=== PATIENT | female | born 1950 | race Caucasian/White ===

== ENCOUNTER → 2016-07-17 | Outpatient (REF) | payer OTHER ==
[2016-07-18 13:48] LABS: ALBUMIN 3.8 GM/DL (3.2-5.2); ALBUMIN/GLOBULIN RATIO 1.23 (1.00-1.93); BASO % 0.1 % (0.0-1.0); BILIRUBIN,TOTAL 0.3 MG/DL (0.2-1.0); CALCIUM LEVEL 9.5 MG/DL (8.8-10.2); CREATININE FOR GFR 1.13 MG/DL (0.55-1.02); EOS # 0.1 K/mm3 (0.0-0.50); EOS % 3.3 % (0.0-3.0); GLOMERULAR FILTRATION RATE 51.1 (>45); LARGE UNSTAINED CELL # 0.1 K/mm3 (0.0-0.4); LARGE UNSTAINED CELL % 2.5 % (0.0-4.0); LYMPH # 0.7 K/mm3 (1.5-4.5); MEAN CORPUSCULAR HEMOGLOBIN 24.5 pg (27.0-33.0); MEAN CORPUSCULAR HGB CONC 31.3 g/dl (32.0-36.5); MEAN CORPUSCULAR VOLUME 78.5 fl (80.0-96.0); MONO # 0.2 K/mm3 (0.0-0.8); MONO % 6.5 % (0.0-5.0); NEUTROPHILS # 1.5 K/mm3 (1.8-7.7); NEUTROPHILS % 61.6 % (36.0-66.0); PLATELET COUNT, AUTOMATED 112 k/mm3 (150-450); POTASSIUM SERUM 4.4 MEQ/L (3.5-5.1); RED CELL DISTRIBUTION WIDTH 17.4 % (11.5-14.5); TOTAL PROTEIN 6.9 GM/DL (6.4-8.2); WHITE BLOOD COUNT 2.5 K/mm3 (4.0-10.0)
== END ==
LOC: M SFHCADAM 11:57
PROVIDERS: ATTEND Family Medicine
DX: T14.8 Other injury of unspecified body region (principal); E11.9 Type 2 diabetes mellitus without complications; Y92.89 Other specified places as the place of occurrence of the external cause; Y93.89 Activity, other specified; Y99.8 Other external cause status; X58.XXXA Exposure to other specified factors, initial encounter
CPT/HCPCS: 80053; 85025; G0463

== ENCOUNTER 2016-09-20 12:37 | Emergency (ER) | payer OTHER ==
[~2016-09-20] VITALS: Ht 152.4 cm; Wt 86.2 kg
[2016-09-20] MEDS ORDERED: LISI10TA4 (13:22)
[2016-09-20] MEDS ORDERED: LASI20TA PO (13:22)
[2016-09-20] MEDS ORDERED: SM M250T (13:22)
[2016-09-20] MEDS ORDERED: ATOR1TAB18 (13:22)
[2016-09-20] MEDS ORDERED: ESOM1CAP5 (13:22)
[2016-09-20] MEDS ORDERED: XIFA550T (13:22)
[2016-09-20] MEDS ORDERED: NITR0.4D TD (13:22)
[2016-09-20] MEDS ORDERED: OXYGEN (13:22)
[2016-09-20] MEDS ORDERED: FEBU40TA (13:22)
[2016-09-20] MEDS: ASPIRIN 81 MG CHEW TABLET PO ONE (13:40)
[2016-09-20 13:48] LABS: BASO % 0.4 % (0.0-1.0); EOS # 0.1 K/mm3 (0.0-0.50); EOS % 1.8 % (0.0-3.0); LARGE UNSTAINED CELL # 0.1 K/mm3 (0.0-0.4); LARGE UNSTAINED CELL % 2.8 % (0.0-4.0); MEAN CORPUSCULAR HGB CONC 31.7 g/dl (32.0-36.5); MEAN CORPUSCULAR VOLUME 81.9 fl (80.0-96.0); MONO # 0.2 K/mm3 (0.0-0.8); MONO % 5.4 % (0.0-5.0); NEUTROPHILS # 2.7 K/mm3 (1.8-7.7); NEUTROPHILS % 65.5 % (36.0-66.0); PLATELET COUNT, AUTOMATED 124 k/mm3 (150-450); WHITE BLOOD COUNT 4.2 K/mm3 (4.0-10.0)
--- NOTE | 2016-09-20 14:08 | REP ---
PORTABLE CHEST X-RAY: Single view. HISTORY: Chest pain. Comparison chest x-rays from February 20, 2015. FINDINGS: EKG monitoring electrodes overlie the chest. The lungs are well inflated and clear. Heart size is normal. Pulmonary vasculature is not increased. No significant bony abnormality is seen. IMPRESSION: No active disease. Signed by Kendell Lou MD 09/20/2016 05:00 P
[2016-09-20 14:11] LABS: ALBUMIN 4.3 GM/DL (3.2-5.2); ALBUMIN/GLOBULIN RATIO 1.26 (1.00-1.93); ALKALINE PHOSPHATASE 67 U/L (45-117); ALT/SGPT 66 U/L (12-78); ANION GAP 13 MEQ/L (8-16); AST/SGOT 37 U/L (15-37); BILIRUBIN,DIRECT 0.1 MG/DL (0.0-0.2); BILIRUBIN,TOTAL 0.4 MG/DL (0.2-1.0); BLOOD UREA NITROGEN 64 MG/DL (7-18); CALCIUM LEVEL 9.6 MG/DL (8.8-10.2); CARBON DIOXIDE LEVEL 21 MEQ/L (21-32); CHLORIDE LEVEL 105 MEQ/L (98-107); CREATININE FOR GFR 1.34 MG/DL (0.55-1.02); GLUCOSE, FASTING 138 MG/DL (80-110); POTASSIUM SERUM 4.8 MEQ/L (3.5-5.1); SODIUM LEVEL 139 MEQ/L (136-145); TOTAL PROTEIN 7.7 GM/DL (6.4-8.2)
[2016-09-20 16:48] VITALS: BP 93/54
[2016-09-20] MEDS: NS 500 ML IV ONE (17:00)
[2016-09-20] MEDS ORDERED: PANT40TA2 PO ×2 (18:25→18:27)
--- NOTE | 2016-09-21 19:44 | ECGEPIP ---
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
--- NOTE | 2016-09-21 19:48 | ECGEPIP ---
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
== END 2016-09-20 18:42 | disposition home or self-care (01) ==
LOC: M ED 14:17
DX: E86.0 Dehydration (principal); N18.3 Chronic kidney disease, stage 3 (moderate); R07.89 Other chest pain

== ENCOUNTER → 2016-09-24 | Outpatient (CLI) | payer OTHER ==
[~2016-09-24] MED LIST: ATOR1TAB18; ESOM1CAP5; FEBU40TA; LASI20TA PO; LISI10TA4; NITR0.4D TD; OXYGEN; PANT40TA2 PO; SM M250T; XIFA550T
--- NOTE | 2016-09-24 09:35 | REP ---
RIGHT UPPER QUADRANT ULTRASOUND: Real-time sonographic evaluation of the right upper quadrant is performed. The gallbladder demonstrates no evidence of intraluminal sludge or calculi, wall thickening or pericholecystic fluid. There is no intrahepatic or extrahepatic biliary dilatation, common bile duct measuring 3 mm in diameter. The liver and pancreas appear grossly unremarkable with no mass. The pancreas is not optimally seen due to overlying bowel gas. The right kidney demonstrates no hydronephrosis or nephrolithiasis with normal size 9.6 cm in length. IMPRESSION: Essentially negative right upper quadrant ultrasound.
== END ==
LOC: M WHC 08:14
PROVIDERS: ATTEND Family Medicine
DX: K74.60 Unspecified cirrhosis of liver (principal)

== ENCOUNTER → 2016-10-09 | Outpatient (REF) | payer OTHER ==
[~2016-10-09] MED LIST changes: +LEVE1INJ5 SC; +MONT10TA2 PO; +NOVOINJ3 SC; +SPIR25TA2 PO
== END ==
LOC: M SFHCADAM 07:55
PROVIDERS: ATTEND Family Medicine
DX: E11.9 Type 2 diabetes mellitus without complications (principal)

== ENCOUNTER → 2016-10-21 | Outpatient (CLI) | payer OTHER ==
[~2016-10-21] VITALS: Ht 152.4 cm; Wt 87.1 kg
[~2016-10-21] MED LIST changes: +LIDOCAINE 2% INJ 100 MG/5 ML SDV (FOR ANES.) As Ordered ONE; +NS 1,000 ML IV SCH; +PROPOFOL 200 MG/20 ML VIAL As Ordered ONE
--- NOTE | 2016-10-21 12:10 | ROOR ---
Patient Name: Bess Rider Procedure Date: 10/21/2016 11:54 AM Date of : 1950 Age: 66 Room: [facility] Gender: Female Note Status: Finalized Procedure: Upper GI endoscopy Indications: Follow-up of portal hypertensive gastropathy Providers: Chito Haskins MD Referring MD: Hillary Toro DO Requesting Provider: Medicines: Monitored Anesthesia Care Complications: No immediate complications. Procedure: Pre-Anesthesia Assessment: - The heart rate, respiratory rate, oxygen saturations, blood pressure, adequacy of pulmonary ventilation, and response to care were monitored throughout the procedure. The Endoscope was introduced through the mouth, and advanced to the second part of duodenum. The upper GI endoscopy was accomplished without difficulty. The patient tolerated the procedure well. Findings: The Z-line was regular and was found 35 cm from the incisors. There is no endoscopic evidence of varices in the entire esophagus. Varices with no bleeding were found in the cardia. They were large in largest diameter. 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 The exam was otherwise without abnormality. Impression: - Z-line regular, 35 cm from the incisors. 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 - Gastric antral vascular ectasia without bleeding. - The examination was otherwise normal. - No specimens collected. - The examination was otherwise normal. Recommendation: - Patient has a contact number available for emergencies. The signs and symptoms of potential delayed complications were discussed with the patient. Return to normal activities tomorrow. Written discharge instructions were provided to the patient. - High fiber diet. - Discharge patient to home. - Continue present medications. - Return to referring physician. - The findings and recommendations were discussed with the patient's family. Chito Haskins MD Chito Haskins MD 10/21/2016 12:09:47 PM This report has been signed electronically. Number of Addenda: 0 Note Initiated On: 10/21/2016 11:54 AM Estimated Blood Loss: Estimated blood loss: none.
[2016-10-21 12:35] VITALS: BP 117/62
== END ==
LOC: M OPP 11:13
PROVIDERS: ATTEND Internal Medicine Gastroenterology
DX: Z09 Encounter for follow-up examination after completed treatment for conditions other than malignant neoplasm (principal); Z87.19 Personal history of other diseases of the digestive system; I86.4 Gastric varices; K31.819 Angiodysplasia of stomach and duodenum without bleeding; I12.9 Hypertensive chronic kidney disease with stage 1 through stage 4 chronic kidney disease, or unspecified chronic kidney disease; E11.9 Type 2 diabetes mellitus without complications; R12 Heartburn; B19.10 Unspecified viral hepatitis B without hepatic coma; G47.30 Sleep apnea, unspecified; N18.3 Chronic kidney disease, stage 3 (moderate); Z87.891 Personal history of nicotine dependence; Z79.899 Other long term (current) drug therapy; Z91.018 Allergy to other foods

== ENCOUNTER → 2017-01-08 | Outpatient (REF) | payer OTHER ==
[~2017-01-08] MED LIST changes: -ATOR1TAB18; +ATOR80TA59; -LIDOCAINE 2% INJ 100 MG/5 ML SDV (FOR ANES.) As Ordered ONE; -NS 1,000 ML IV SCH; -PROPOFOL 200 MG/20 ML VIAL As Ordered ONE
== END ==
LOC: M SFHCPLAZ 08:30
PROVIDERS: ATTEND Family Medicine
DX: E11.9 Type 2 diabetes mellitus without complications (principal)

== ENCOUNTER → 2017-01-14 | Outpatient (REF) | payer OTHER | LOC: M SFHCADAM 12:24 | PROVIDERS: ATTEND Family Medicine | DX: E11.69 Type 2 diabetes mellitus with other specified complication (principal) | CPT/HCPCS: 82043; 82948; G0463 ==

== ENCOUNTER → 2017-03-14 | Outpatient (CLI) | payer OTHER ==
--- NOTE | 2017-03-14 11:13 | REP ---
Right upper quadrant sonography: History: Hepatic cirrhosis. Comparison study September 24, 2016 showed no significant abnormality. Findings: Scanning through the right upper quadrant of the abdomen demonstrates a normal sized thin-walled gallbladder without evidence of stone or polyp. Common bile duct is normal measuring 0.3 cm in greatest diameter. No focal liver lesion is seen. No pancreatic lesion is seen. There is no evidence of ascites or right renal abnormality. The right kidney measures 8.8 x 4.9 x 3.3 cm. Impression: Unremarkable right upper quadrant sonogram.
== END ==
LOC: M WHC 07:59
PROVIDERS: ATTEND Family Medicine
DX: K74.60 Unspecified cirrhosis of liver (principal)

== ENCOUNTER → 2017-03-14 | Outpatient (CLI) | payer OTHER ==
--- NOTE | 2017-03-14 10:18 | REPMRS ---
Patient History The patient states she had a clinical breast exam in 03/2017. Patient is postmenopausal. No known family history of cancer. Digital Woman Screen Mammo: March 14, 2017 - Exam #: [id number] Bilateral CC and MLO view(s) were taken. Technologist: Anita Guido, Technologist Prior study comparison: March 12, 2016, digital woman screen mammo performed at [facility] to [facility]. February 10, 2015, digital woman screen mammo performed at [facility]. February 09, 2014, digital woman screen mammo performed at [facility]. FINDINGS: The breast tissue is almost entirely fat. There has been no change in the appearance of the mammogram from the prior studies. There is no interval development of dominant mass, architectural distortion, or clustered microcalcification typical of malignancy. ASSESSMENT: BI-RADS/ACR category 1 mammogram. Negative. Recommendation Routine screening mammogram of both breasts in 1 year (for women over age 40). This mammogram was interpreted with the aid of an FDA-approved computer-aided dectection system. Electronically Signed By: Jonathan Lou MD 03/14/17 [id number]
--- NOTE | 2017-03-17 09:15 | DEXA ---
AP SPINE L1 - L4 1.001 -1.6 0.1 LT FEMUR TOTAL 0.817 -1.5 -0.2 RT FEMUR TOTAL 0.855 -1.2 0.1 TOTAL BODY TOTAL OTHER DUAL FEMUR FRAX* ASSESSMENT Risk factors: Not performed. 10 year probability of fracture Major osteoporotic fracture % Hip fracture % COMMENTS: There is low bone density of the spine and hips. The density of the spine has increased 12.9% since the initial exam on 11/2003. The spine density has increased 4.3% since the most recent exam on 02/2015. The density of the left hip has decreased 6.2% since the initial exam on 11/2003. The density of the left hip has decreased 0% since the most recent exam on 2014. The density of the right hip has decreased 7.0% since the initial exam on 2003. The density of the right hip has increased 3.4% since the most recent exam on 2014. FOLLOW-UP: Recommendation for the next bone density exam: 2 years. VITALIY
== END ==
LOC: M WHC 08:14
PROVIDERS: ATTEND Nurse Practitioner Family
DX: Z12.31 Encounter for screening mammogram for malignant neoplasm of breast (principal); E65 Localized adiposity; M81.0 Age-related osteoporosis without current pathological fracture; Z78.0 Asymptomatic menopausal state; K74.60 Unspecified cirrhosis of liver; Z12.12 Encounter for screening for malignant neoplasm of rectum; B37.89 Other sites of candidiasis; Z01.419 Encounter for gynecological examination (general) (routine) without abnormal findings
CPT/HCPCS: 76705; 77080; 82270; G0101; G0202

== ENCOUNTER → 2017-04-01 | Outpatient (REF) | payer OTHER ==
[2017-04-01 14:43] LABS: ALBUMIN/GLOBULIN RATIO 1.29 (1.00-1.93); ALKALINE PHOSPHATASE 72 U/L (45-117); ALT/SGPT 51 U/L (12-78); ANION GAP 8 MEQ/L (8-16); AST/SGOT 25 U/L (15-37); BILIRUBIN,DIRECT 0.1 MG/DL (0.0-0.2); BILIRUBIN,TOTAL 0.5 MG/DL (0.2-1.0); BLOOD UREA NITROGEN 41 MG/DL (7-18); CALCIUM LEVEL 9.4 MG/DL (8.8-10.2); CARBON DIOXIDE LEVEL 26 MEQ/L (21-32); CHLORIDE LEVEL 107 MEQ/L (98-107); CHOLESTEROL LEVEL 150 MG/DL (<200); CREATININE FOR GFR 0.94 MG/DL (0.55-1.02); GLOMERULAR FILTRATION RATE > 60.0 (>45); GLUCOSE, FASTING 161 MG/DL (80-110); PHOSPHORUS LEVEL 3.2 MG/DL (2.5-4.9); POTASSIUM SERUM 4.2 MEQ/L (3.5-5.1); SODIUM LEVEL 141 MEQ/L (136-145); TOTAL PROTEIN 7.1 GM/DL (6.4-8.2); TRIGLYCERIDES LEVEL 95 MG/DL (<150)
== END ==
LOC: M LABDRAW1 12:20
PROVIDERS: ATTEND Nurse Practitioner Family
DX: E78.2 Mixed hyperlipidemia (principal); I10 Essential (primary) hypertension

== ENCOUNTER → 2017-04-07 | Outpatient (REF) | payer OTHER ==
[2017-04-07 12:29] LABS: BASO % 0.5 % (0.0-1.0); EOS # 0.1 10^3/uL (0.0-0.50); EOS % 1.4 % (0.0-3.0); IMMATURE GRANULOCYTE % 0.3 % (0-0); LYMPH # 1.2 10^3/uL (1.5-4.5); LYMPH % 31.9 % (24.0-44.0); MEAN CORPUSCULAR HEMOGLOBIN 28.9 pg (27.0-33.0); MEAN CORPUSCULAR HGB CONC 32.6 g/dl (32.0-36.5); MEAN CORPUSCULAR VOLUME 88.7 fl (80.0-96.0); MONO # 0.3 10^3/uL (0.0-0.8); MONO % 8.4 % (0.0-5.0); NEUTROPHILS # 2.1 10^3/uL (1.8-7.7); NEUTROPHILS % 57.5 % (36.0-66.0); PLATELET COUNT, AUTOMATED 111 10^3/uL (150-450); RED CELL DISTRIBUTION WIDTH 14.5 % (11.5-14.5); WHITE BLOOD COUNT 3.7 10^3/uL (4.0-10.0)
== END ==
LOC: M SFHCADAM 08:02
PROVIDERS: ATTEND Family Medicine
DX: E11.69 Type 2 diabetes mellitus with other specified complication (principal); K74.60 Unspecified cirrhosis of liver

== ENCOUNTER → 2017-07-08 | Outpatient (REF) | payer OTHER ==
[2017-07-08 13:14] LABS: ESTIMATED AVERAGE GLUCOSE 120 MG/DL (60-110); HEMOGLOBIN A1c 5.8 %
== END ==
LOC: M SFHCADAM 08:13
DX: E11.9 Type 2 diabetes mellitus without complications (principal)
CPT/HCPCS: 83036

== ENCOUNTER → 2017-10-30 | Outpatient (CLI) | payer OTHER | LOC: M WHC 08:37 | DX: K74.60 Unspecified cirrhosis of liver (principal) | CPT/HCPCS: 76705 ==

== ENCOUNTER → 2017-11-06 | Outpatient (CLI) | payer OTHER | LOC: M RAD 13:16 | DX: N28.89 Other specified disorders of kidney and ureter (principal) | CPT/HCPCS: 76775 ==

== ENCOUNTER → 2017-12-09 | Outpatient (CLI) | payer OTHER | LOC: M RAD 17:43 | DX: M66.362 Spontaneous rupture of flexor tendons, left lower leg (principal); R26.2 Difficulty in walking, not elsewhere classified; M76.822 Posterior tibial tendinitis, left leg; M79.672 Pain in left foot; M65.862 Other synovitis and tenosynovitis, left lower leg | CPT/HCPCS: 73721 ==

== ENCOUNTER → 2018-01-19 | Outpatient (REF) | payer OTHER ==
[2018-01-19 13:47] LABS: ESTIMATED AVERAGE GLUCOSE 146 MG/DL (60-110); HEMOGLOBIN A1c 6.7 %
== END ==
LOC: M SFHCADAM 12:12
DX: E11.9 Type 2 diabetes mellitus without complications (principal)
CPT/HCPCS: 83036

== ENCOUNTER → 2018-03-13 | Outpatient (CLI) | payer OTHER | LOC: M WHC 08:50 | DX: Z12.31 Encounter for screening mammogram for malignant neoplasm of breast (principal); Z01.419 Encounter for gynecological examination (general) (routine) without abnormal findings (principal); Z78.0 Asymptomatic menopausal state; Z12.12 Encounter for screening for malignant neoplasm of rectum | CPT/HCPCS: 77067 ==

== ENCOUNTER → 2018-04-06 | Outpatient (CLI) | payer OTHER | LOC: M WHC 08:38 | DX: K74.60 Unspecified cirrhosis of liver (principal) | CPT/HCPCS: 76705 ==

== ENCOUNTER → 2018-04-07 | Outpatient (REF) | payer OTHER ==
[2018-04-07 13:21] LABS: ESTIMATED AVERAGE GLUCOSE 151 MG/DL (60-110); HEMOGLOBIN A1c 6.9 %
== END ==
LOC: M SFHCADAM 08:34
DX: E11.9 Type 2 diabetes mellitus without complications (principal)
CPT/HCPCS: 83036

== ENCOUNTER → 2018-06-18 | Outpatient (REF) | payer OTHER ==
[2018-06-18 14:17] LABS: CREATININE, URINE 39.6 MG/DL; MAU/CREAT RATIO 63.1 MCG/MG (0.0-30.0)
== END ==
LOC: M SFHCADAM 10:04
DX: E11.69 Type 2 diabetes mellitus with other specified complication (principal)
CPT/HCPCS: 82043

== ENCOUNTER → 2018-08-03 | Outpatient (REF) | payer MEDICARE ==
[~2018-08-03] MED LIST changes: -LASI20TA PO; +LASI20TA3 PO; -NITR0.4D TD; +NITR0.4D10 TD; -PANT40TA2 PO; +PANT40TA3 PO; +SPIR-10 PO; -SPIR25TA2 PO
[2018-08-03 13:02] LABS: HEMOGLOBIN A1c 7.4 %
== END ==
LOC: M SFHCADAM 09:04
PROVIDERS: ATTEND Family Medicine
DX: E11.9 Type 2 diabetes mellitus without complications (principal)

== ENCOUNTER → 2018-09-25 | Outpatient (CLI) | payer MEDICARE ==
[~2018-09-25] MED LIST changes: +ALBUTEROL INH; +ISOVUE-370 76% 125ML VIAL (Q9967 PER ML) As Ordered ONE
--- NOTE | 2018-09-25 16:06 | REP ---
CT ANGIOGRAM CHEST: TECHNIQUE: Axial contrast enhanced images from the thoracic inlet to the upper abdomen using 100 mL Isovue 370 intravenous contrast material with multiplanar reformations. Pulmonary arteries opacity well with contrast. There is no CT evidence of pulmonary embolism. There is mild atherosclerotic calcification of the thoracic aorta without aneurysm or dissection. The heart is normal in size. There is no mediastinal, hilar or chest wall lymphadenopathy. There is no pleural or pericardial effusion. Lungs are free of infiltrate. In the visualized portions of the upper abdomen, note is made of mild splenomegaly without other significant finding. There are mild degenerative changes of the spine. IMPRESSION: No acute abnormalities. No CT evidence of pulmonary embolism. No infiltrate in either lung. Mild splenomegaly. Electronically Signed by Sai Harper MD 09/25/2018 07:58 P
== END ==
LOC: M RAD 12:16
PROVIDERS: ATTEND Family Medicine
DX: R16.1 Splenomegaly, not elsewhere classified (principal); R06.09 Other forms of dyspnea; R07.89 Other chest pain
CPT/HCPCS: 71275; G0463; Q9967

== ENCOUNTER 2018-10-05 11:46 | Emergency (ER) | payer MEDICARE ==
[~2018-10-05] VITALS: Ht 152.4 cm; Wt 101.4 kg
[~2018-10-05 11:46] MED LIST changes: -ALBUTEROL INH; -ISOVUE-370 76% 125ML VIAL (Q9967 PER ML) As Ordered ONE
[2018-10-05] MEDS ORDERED: ALBUTEROL INH (11:55)
--- NOTE | 2018-10-05 12:25 | REP ---
Portable chest x-ray: Single view. History: Dyspnea and cough. Comparison chest x-ray: September 16. Findings: The lungs are symmetrically aerated and clear. Pleural angles are sharp. Heart size is normal. Pulmonary vasculature is not increased. Impression: No active disease. Electronically Signed by Kendell Lou MD 10/05/2018 12:16 P
[2018-10-05 13:30] LABS: VENOUS BASE EXCESS -2.9 (-2.0-2.0); VENOUS HCO3 20.4 MEQ/L (23.0-27.0); VENOUS O2 SATURATION 86.8 % (60.0-80.0); VENOUS PARTIAL PRESSURE CO2 30.4 mmHg (38.0-50.0); VENOUS PARTIAL PRESSURE O2 51.2 mmHg (30.0-50.0); VENOUS PH 7.444 UNITS (7.330-7.430); VENOUS STANDARD HCO3 21.8 MEQ/L; VENOUS TOTAL CO2 21.3 MEQ/L (24.0-28.0)
[2018-10-05 13:31] LABS: BASO % 0.8 % (0.0-1.0); EOS # 0.1 10^3/uL (0.0-0.50); EOS % 2.7 % (0.0-3.0); HEMATOCRIT 31.2 % (36.0-47.0); HEMOGLOBIN 9.4 g/dl (12.0-15.5); LYMPH # 0.7 10^3/uL (1.5-4.5); LYMPH % 28.6 % (24.0-44.0); MEAN CORPUSCULAR HEMOGLOBIN 22.8 pg (27.0-33.0); MEAN CORPUSCULAR HGB CONC 30.1 g/dl (32.0-36.5); MEAN CORPUSCULAR VOLUME 75.5 fl (80.0-96.0); MONO # 0.3 10^3/uL (0.0-0.8); MONO % 13.3 % (0.0-5.0); NEUTROPHILS # 1.4 10^3/uL (1.8-7.7); NEUTROPHILS % 54.6 % (36.0-66.0); PLATELET COUNT, AUTOMATED 126 10^3/uL (150-450); RED BLOOD COUNT 4.13 10^6/uL (4.00-5.40); WHITE BLOOD COUNT 2.6 10^3/uL (4.0-10.0)
[2018-10-05 13:41] LABS: INR 1.05; PROTHROMBIN TIME 13.8 SECONDS (12.1-14.4)
[2018-10-05 14:06] LABS: INFLUENZA A AMPLIFICATION NEGATIVE (NEGATIVE); INFLUENZA B AMPLIFICATION NEGATIVE (NEGATIVE)
[2018-10-05 14:12] LABS: ALBUMIN 3.7 GM/DL (3.2-5.2); ALT/SGPT 36 U/L (12-78); BILIRUBIN,DIRECT < 0.1 MG/DL (0.0-0.2); BILIRUBIN,TOTAL 0.4 MG/DL (0.2-1.0); BLOOD UREA NITROGEN 36 MG/DL (7-18); CALCIUM LEVEL 9.3 MG/DL (8.8-10.2); CARBON DIOXIDE LEVEL 21 MEQ/L (21-32); CHLORIDE LEVEL 108 MEQ/L (98-107); CPK CREATINE PHOSPHOKINASE 85 U/L (26-192); CREATININE FOR GFR 1.14 MG/DL (0.55-1.30); GLOMERULAR FILTRATION RATE 50.3 (>45); GLUCOSE, FASTING 122 MG/DL (70-100); MB/CK RELATIVE INDEX 1.18 (< OR =4); NT-PRO BNP 52 PG/ML (<125); POTASSIUM SERUM 4.4 MEQ/L (3.5-5.1); SODIUM LEVEL 139 MEQ/L (136-145); TOTAL PROTEIN 6.9 GM/DL (6.4-8.2); TROPONIN I < 0.02 NG/ML (< 0.10)
[2018-10-05] MEDS ORDERED: ISOVUE-370 76% 100ML VIAL (Q9967) As Ordered ONE (14:16)
--- NOTE | 2018-10-05 14:56 | REP ---
CT pulmonary angiogram: With IV contrast. History: Shortness of breath . Comparison studies: September 25, 2018. Contrast dose: 75 mL of Isovue [address] technique: Helical scanning is acquired and overlapping 1.5 mm and contiguous 3 mm axial images are reformatted. In addition, maximum intensity projection and multiplanar re-formation images are generated in sagittal and coronal imaging projections. CT pulmonary angiographic findings: There is good opacification of the pulmonary arterial tree. There is no CT evidence to suggest pulmonary embolism. Thoracic aorta is normal in course and caliber and enhances normally as well. Mild atherosclerotic changes are seen. No evidence of aneurysm or dissection is noted. There is no evidence of mediastinal mass or adenopathy. Vascular calcification is noted in the coronary artery distribution on the left. No pleural or pericardial effusion is seen. No infiltrate is noted in the lung vivas. No bony destructive lesion is appreciated. Spleen is moderately enlarged measuring up to 17.0 cm in greatest diameter. There are some venous collateral vessels near the gastroesophageal junction. These findings raise a question of cirrhosis. No adrenal lesion is seen. Impression: No CT evidence of pulmonary embolus. Splenomegaly and prominent venous collaterals in the left upper quadrant of the abdomen question portal hypertension/cirrhosis. Vascular calcification. Otherwise no acute changes. Electronically Signed by Kendell Lou MD 10/05/2018 03:06 P
[2018-10-05 17:32] VITALS: BP 149/75
--- NOTE | 2018-10-06 21:49 | ECGEPIP ---
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
== END 2018-10-05 17:34 | disposition home or self-care (01) ==
LOC: M ED 11:46
DX: R06.00 Dyspnea, unspecified (principal); R94.31 Abnormal electrocardiogram [ECG] [EKG]; I25.10 Atherosclerotic heart disease of native coronary artery without angina pectoris; E11.9 Type 2 diabetes mellitus without complications; I10 Essential (primary) hypertension; J45.909 Unspecified asthma, uncomplicated; D68.0 Von Willebrand disease; G47.33 Obstructive sleep apnea (adult) (pediatric); K74.3 Primary biliary cirrhosis; Z88.8 Allergy status to other drugs, medicaments and biological substances; Z91.018 Allergy to other foods; Z87.891 Personal history of nicotine dependence; Z79.899 Other long term (current) drug therapy; Z79.4 Long term (current) use of insulin
CPT/HCPCS: 71045; 71275; 80048; 80076; 82550; 82553; 82803; 83605; 83880; 84443; 84484; 85025; 85610; 87040; 87502; 93005; 93041; 99285; Q9967

== ENCOUNTER → 2018-10-08 | Outpatient (REF) | payer MEDICARE ==
[~2018-10-08] MED LIST changes: +ALBUTEROL INH
[2018-10-08 13:03] LABS: HEMOGLOBIN A1c 7.8 %
[2018-10-08 13:03] LABS: CREATININE, URINE 56.2 MG/DL; MALB URINE SIEMENS 17.1 MG/L; MAU/CREAT RATIO 30.4 MCG/MG (0.0-30.0)
[2018-10-08 13:15] LABS: FREE T4 0.68 NG/DL (0.76-1.46); THYROID STIMULATING HORMONE 5.06 uIU/ML (0.358-3.740)
== END ==
LOC: M SFHCADAM 10:09
PROVIDERS: ATTEND Family Medicine
DX: K74.60 Unspecified cirrhosis of liver (principal); R79.89 Other specified abnormal findings of blood chemistry; E11.69 Type 2 diabetes mellitus with other specified complication

== ENCOUNTER 2019-01-24 14:10 | Observation (INO) | payer MEDICARE ==
[~2019-01-24] VITALS: Ht 154.9 cm; Wt 102.3 kg
[~2019-01-24 14:10] MED LIST changes: -ATOR80TA59; +ATOR80TA59 PO; -ESOM1CAP5; +ESOM1CAP5 PO; -FEBU40TA; +FEBU40TA PO; -XIFA550T; +XIFA550T PO
[2019-01-24 16:03] LABS: BASO % 0.3 % (0.0-1.0); EOS % 0.6 % (0.0-3.0); HEMATOCRIT 33.5 % (36.0-47.0); HEMOGLOBIN 9.8 g/dl (12.0-15.5); LYMPH # 0.6 10^3/uL (1.5-4.5); LYMPH % 17.3 % (24.0-44.0); MEAN CORPUSCULAR HEMOGLOBIN 22.5 pg (27.0-33.0); MEAN CORPUSCULAR HGB CONC 29.3 g/dl (32.0-36.5); MEAN CORPUSCULAR VOLUME 76.8 fl (80.0-96.0); MONO # 0.3 10^3/uL (0.0-0.8); NEUTROPHILS # 2.3 10^3/uL (1.8-7.7); NEUTROPHILS % 72.5 % (36.0-66.0); PLATELET COUNT, AUTOMATED 107 10^3/uL (150-450); RED BLOOD COUNT 4.36 10^6/uL (4.00-5.40); WHITE BLOOD COUNT 3.2 10^3/uL (4.0-10.0)
[2019-01-24 16:16] LABS: INR 1.06; PARTIAL THROMBOPLASTIN TIME 23.7 SECONDS (25.0-38.4); PROTHROMBIN TIME 13.5 SECONDS (11.8-14.0)
[2019-01-24 16:57] LABS: ALBUMIN 3.9 GM/DL (3.2-5.2); ALT/SGPT 27 U/L (12-78); BILIRUBIN,DIRECT < 0.1 MG/DL (0.0-0.2); BILIRUBIN,TOTAL 0.4 MG/DL (0.2-1.0); BLOOD UREA NITROGEN 36 MG/DL (7-18); CALCIUM LEVEL 9.2 MG/DL (8.8-10.2); CARBON DIOXIDE LEVEL 26 MEQ/L (21-32); CHLORIDE LEVEL 108 MEQ/L (98-107); CK-MB VALUE MASS 1.1 NG/ML (<3.6); CPK CREATINE PHOSPHOKINASE 115 U/L (26-192); CREATININE FOR GFR 1.06 MG/DL (0.55-1.30); FREE T4 0.81 NG/DL (0.76-1.46); GLOMERULAR FILTRATION RATE 54.7 (>45); GLUCOSE, FASTING 105 MG/DL (70-100); LIPASE 165 U/L (73-393); MAGNESIUM LEVEL 2.2 MG/DL (1.8-2.4); MB/CK RELATIVE INDEX 0.96 (< OR =4); NT-PRO BNP 75 PG/ML (<125); POTASSIUM SERUM 4.6 MEQ/L (3.5-5.1); SODIUM LEVEL 141 MEQ/L (136-145); TOTAL PROTEIN 7.8 GM/DL (6.4-8.2); TROPONIN I < 0.02 NG/ML (< 0.10)
[2019-01-24] MEDS ORDERED: ISOVUE-370 76% 100ML VIAL (Q9967) As Ordered ONE (17:36)
[2019-01-24] MEDS ORDERED: ACETAMINOPHEN TAB 650MG DOSE (2X325MG) PO PRN (18:15)
[2019-01-24] MEDS ORDERED: GLUCOSE 4 GM CHEW TABLET PO PRN (18:15)
[2019-01-24] MEDS ORDERED: GLUCAGON FOR INJ 1 MG VIAL (J1610) SC PRN (18:15)
[2019-01-24] MEDS ORDERED: DEXTROSE 50% 50 ML SYRINGE IV PRN (18:15)
[2019-01-24] MEDS ORDERED: PROAAER10 INH (18:23)
[2019-01-24] MEDS ORDERED: PREDOPD OU (18:23)
[2019-01-24] MEDS ORDERED: LEVO75TA4 PO (18:23)
[2019-01-24] MEDS ORDERED: NYSTOI TOP (18:23)
[2019-01-24] MEDS ORDERED: BUDE180INH INH (18:23)
--- NOTE | 2019-01-24 18:23 | HPEPDOC ---
General Date of Admission 01/24/19 Date of Service: Jan 24, 2019 Chief Complaint The patient is a 68-year-old female admitted with a reason for visit of Anxiety. History of Present Illness 68-year-old female with past medical history of hypertension, diabetes, dyslipidemia, asthma, CAD, and pancytopenia presents to the ER with a chief complaint of a near syncopal episode. The patient states that she was sitting down watching TV when she became short of breath. Upon standing up, the patient states that she also felt lightheaded and dizzy. She states she felt like she was going to pass out. She states that she has had episodes like this in the past, but nothing that lasted this long. She denied any complaints of chest pain, palpitations, abdominal pain, or any nausea/vomiting. She'll be admitted to the [facility] for observation. Home Medications Scheduled Insulin Aspart (Novolog Flexpen) 100 Unit/Ml Inj, 2 UNITS SC AC, (Reported) Insulin Detemir (Levemir Flextouch) 100 Unit/Ml Inj, 30 UNIT SC QHS, (Reported) Montelukast Sodium (Montelukast Sodium) 10 Mg Tab, 10 MG PO DAILY, (Reported) Pantoprazole Sodium (Pantoprazole Sodium) 40 Mg Tab, 40 MG PO DAILY Spironolactone (Spironolactone) 25 Mg Tab, 12.5 MG PO DAILY, (Reported) [Albuterol] 90 mcg , 2 PUFFS INH Q4HP, (Reported) Scheduled PRN Nitroglycerin (Nitro-Dur) 0.4 Mg/Hr Dis, 0.4 MG TD PRN PRN for ANGINA, (Reported) Miscellaneous Medications Atorvastatin Calcium (Atorvastatin Calcium) 80 Mg Tab, (Reported) Esomeprazole Magnesium (Esomeprazole Magnesium) 40 Mg Cap, (Reported) Febuxostat (Uloric) 40 Mg Tab, (Reported) Magnesium (Magnesium) 250 Mg Tab, (Reported) Rifaximin (Xifaxan) 550 Mg Tab, (Reported) Allergies Coded Allergies: aspirin (Verified Allergy, Unknown, gi bleeding, 01/24/19) onion (Verified Allergy, Unknown, n/v, 01/24/19) Past Medical History Medical History As noted in HPI. Surgical History HYSTERECTOMY, TOTAL WITH BSO 1976 TUBAL LIGATION 1974 MOST RECENT EGD - DANIELLE, WITH GASTRIC (NOT ESOPHAGEAL) VARICES AND GASTRIC ANTRAL VASCULAR ECTASIA 10/2016 COLONOSCOPY WITH POLYPECTOMY- DANIELLE, ADENOMATOUS 01/07, 11/12, Social History * Smoker: former Smoker Alcohol: Denies Drugs: denies Review of Systems Other systems 10 point review of systems negative unless otherwise specified in HPI. Physical Examination General Exam: Positive: Alert, Cooperative, No Acute Distress ENT Exam: Positive: Atraumatic, Mucous membr. moist/pink Neck Exam: Negative: JVD Chest Exam: Positive: Clear to auscultation, Normal air movement Heart Exam: Positive: Rate Normal, Normal S1, Normal S2 Abdomen Exam: Positive: Soft; Negative: Tenderness Extremity Exam: Negative: Tenderness, Swelling Psych Exam: Positive: Oriented x 3 Vital Signs Vital Signs Date Time Temp Pulse Resp B/P (MAP) Pulse Ox O2 Delivery O2 Flow Rate FiO2 01/24/19 14:25 97.8 79 21 140/69 (92) 97 Room Air Laboratory Data Labs 24H Laboratory Tests 2 01/24/19 15:48: Immature Granulocyte % (Auto) 0.3, White Blood Count 3.2L, Red Blood Count 4.36, Hemoglobin 9.8L, Hematocrit 33.5L, Mean Corpuscular Volume 76.8L, Mean Corpuscular Hemoglobin 22.5L, Mean Corpuscular Hemoglobin Concent 29.3L, Red Cell Distribution Width 16.9H, Platelet Count 107L, Neutrophils (%) (Auto) 72.5H, Lymphocytes (%) (Auto) 17.3L, Monocytes (%) (Auto) 9.0H, Eosinophils (%) (Auto) 0.6, Basophils (%) (Auto) 0.3, Neutrophils # (Auto) 2.3, Lymphocytes # (Auto) 0.6L, Monocytes # (Auto) 0.3, Eosinophils # (Auto) 0.0, Basophils # (Auto) 0.0, Nucleated Red Blood Cells % (auto) 0.0, Prothrombin Time 13.5, Prothromb Time International Ratio 1.06, Activated Partial Thromboplast Time 23.7L, Anion Gap 7L, Glomerular Filtration Rate 54.7, Calcium Level 9.2, Magnesium Level 2.2, Aspartate Amino Transf (AST/SGOT) 32, Alanine Aminotransferase (ALT/SGPT) 27, Alkaline Phosphatase 95, Total Bilirubin 0.4, Direct Bilirubin < 0.1, Total Creatine Kinase 115, Creatine Kinase MB 1.1, Creatine Kinase MB Relative Index 0.96, Troponin I < 0.02, XG-Hve-D-Type Natriuretic Peptide 75, Total Protein 7.8, Albumin 3.9, Albumin/Globulin Ratio 1.00, Lipase 165, Thyroid Stimulating Hormone (TSH) 1.010, Free Thyroxine 0.81 CBC/BMP Laboratory Tests 01/24/19 15:48 Red Blood Count 4.36, Mean Corpuscular Volume 76.8 L, Mean Corpuscular Hemoglobin 22.5 L, Mean Corpuscular Hemoglobin Concent 29.3 L, Red Cell Distribution Width 16.9 H, Neutrophils (%) (Auto) 72.5 H, Lymphocytes (%) (Auto) 17.3 L, Monocytes (%) (Auto) 9.0 H, Eosinophils (%) (Auto) 0.6, Basophils (%) (Auto) 0.3, Neutrophils # (Auto) 2.3, Lymphocytes # (Auto) 0.6 L, Monocytes # (Auto) 0.3, Eosinophils # (Auto) 0.0, Basophils # (Auto) 0.0 Microbiology Microbiology 01/24/19 Blood Culture, Received Pending 01/24/19 Blood Culture, Received Pending Plan / VTE VTE Prophylaxis Ordered?: Yes Plan Plan Near Syncopal Episode possibly 2/2 Orthostatic Hypotension, Vasovagal EKG with no acute ST changes, initial troponin negative-we'll serially trend Monitor on telemetry Orthostatic vitals ordered CTA Chest pending to r/o PE We will continue to monitor the patient for observation Diabetes mellitus Continue current insulin regimen Hypertension, stable We will hold antihypertensives for now History of CAD GERD Continue PPI History of chronic pancytopenia Follow-up as an outpatient DVT prophylaxis Lovenox subcutaneous ADRIAN JAMESON MD Jan 24, 2019 18:22
[2019-01-24] MEDS ORDERED: NITR4TASL SL (18:24)
--- NOTE | 2019-01-24 18:41 | REPVR ---
EXAM: CT Angiography Chest With Contrast EXAM DATE/TIME: 01/24/2019 5:39 PM CLINICAL HISTORY: 68 years old, female; Shortness of breath; Additional info: SOB TECHNIQUE: Imaging protocol: Axial computed tomographic angiography images of the chest with intravenous contrast using CT angiography protocol. Coronal and sagittal reformatted images were created and reviewed. 3D rendering: MIP reconstructed images were created and reviewed. Radiation optimization: All CT scans at this facility use at least one of these dose optimization techniques: automated exposure control; mA and/or kV adjustment per patient size (includes targeted exams where dose is matched to clinical indication); or iterative reconstruction. Contrast material: ISOVUE 370; Contrast volume: 75 ml; Contrast route: IV; COMPARISON: CT ANGIO CHEST 10/05/2018 2:16 PM FINDINGS: Pulmonary arteries: No evidence of pulmonary artery emboli. Aorta: No evidence of thoracic aortic aneurysm or dissection. Lungs: There is dependent atelectasis. There are areas of groundglass opacity bilaterally. There is an area of more focal consolidation in the left upper lobe. Pleural space: Unremarkable. No pneumothorax. No pleural effusion. Heart: There is mild cardiomegaly. Heart size appears slightly larger than on prior scan. No R. strain. There are coronary artery calcifications. Spleen: The spleen is enlarged measuring 17 cm, unchanged from prior scan. Lymph nodes: Unremarkable. No enlarged lymph nodes. Bones/joints: There are degenerative changes of the thoracic spine. No fracture. Soft tissues: Unremarkable. IMPRESSION: 1. No pulmonary emboli. 2. There is mild cardiomegaly with increase in size of heart compared with prior scan. There are coronary artery calcifications. 3. There are areas of groundglass opacity bilaterally. This could represent areas of edema or infection. 4. There is a more focal area of consolidation in the left upper lobe. 5. Stable splenomegaly, 17 cm. Electronically signed by: Ezequiel Obando On 01/24/2019 18:41:34 PM
[2019-01-24] MEDS ORDERED: NITROGLYCERIN 0.4 MG SUBL TABLET SL PRN (19:00)
[2019-01-24] MEDS ORDERED: NYSTATIN OINTMENT 15 GM TOP PRN (19:00)
--- NOTE | 2019-01-24 19:56 | ECGEPIP ---
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
[2019-01-24] MEDS: BUDESONIDE 0.5 MG/2 ML INHALATION SUSPENSION INH SCH (21:00)
[2019-01-24] MEDS: HumaLOG INSULIN (NovoLOG) PER UNIT SC SCH (21:00)
[2019-01-24 23:21] LABS: CK-MB VALUE MASS 1.3 NG/ML (<3.6); CPK CREATINE PHOSPHOKINASE 74 U/L (26-192); MB/CK RELATIVE INDEX 1.76 (< OR =4); TROPONIN I < 0.02 NG/ML (< 0.10)
[2019-01-24] MEDS: prednisoLONE ACET 1% OPHTH SUSP 5ML OU SCH (23:30)
[2019-01-24] MEDS: rifAXIMin 550 MG TAB (XIFAXAN) PO SCH (23:30)
[2019-01-24] MEDS: LEVEMIR (INSULIN DETEMIR) 1 UNITS/0.01ML SC SCH (23:30)
[2019-01-25] MEDS: LEVOTHYROXINE 75MCG TABLET (0.075MG) PO SCH (06:59)
[2019-01-25 07:04] LABS: HEMATOCRIT 31.2 % (36.0-47.0); HEMOGLOBIN 9.1 g/dl (12.0-15.5); MEAN CORPUSCULAR HEMOGLOBIN 22.4 pg (27.0-33.0); MEAN CORPUSCULAR HGB CONC 29.2 g/dl (32.0-36.5); MEAN CORPUSCULAR VOLUME 76.8 fl (80.0-96.0); PLATELET COUNT, AUTOMATED 105 10^3/uL (150-450); RED BLOOD COUNT 4.06 10^6/uL (4.00-5.40); WHITE BLOOD COUNT 2.2 10^3/uL (4.0-10.0)
[2019-01-25] MEDS: BUDESONIDE 0.5 MG/2 ML INHALATION SUSPENSION INH SCH ×2 (07:22→21:43)
[2019-01-25] MEDS: IPRATROPIUM 0.5MG/ALBUTEROL 2.5MG INH SOL UD 3ML (DUONEB)(J7620) NEB PRN (07:22)
[2019-01-25 07:23] LABS: CALCIUM LEVEL 8.8 MG/DL (8.8-10.2); CREATININE FOR GFR 1.04 MG/DL (0.55-1.30); GLOMERULAR FILTRATION RATE 55.9 (>45); MAGNESIUM LEVEL 2.2 MG/DL (1.8-2.4); POTASSIUM SERUM 4.3 MEQ/L (3.5-5.1)
[2019-01-25 07:25] LABS: CK-MB VALUE MASS 1.6 NG/ML (<3.6); CPK CREATINE PHOSPHOKINASE 70 U/L (26-192); MB/CK RELATIVE INDEX 2.29 (< OR =4); TROPONIN I < 0.02 NG/ML (< 0.10)
--- NOTE | 2019-01-25 07:42 | REP ---
CT BRAIN WITHOUT CONTRAST: CT brain was performed without IV contrast. There is moderate atrophy. There is no midline shift or mass effect. Scattered ill-defined lucencies in the periventricular white matter bilaterally are compatible with mild small vessel ischemic changes which are likely chronic in nature. There is no acute intracranial hemorrhage or extra-axial fluid collection. Vascular calcifications are seen in the carotid siphons. IMPRESSION: Chronic changes in the brain without acute intracranial hemorrhage. Vascular calcifications. Electronically Signed by Sai Harper MD 01/25/2019 09:15 A
[2019-01-25] MEDS: HumaLOG INSULIN (NovoLOG) PER UNIT SC SCH ×4 (08:07→20:44)
--- NOTE | 2019-01-25 09:08 | REP ---
CHEST, SINGLE VIEW: Single view of the chest is performed and compared with prior study of 10/05/2018. There is some minor streaky atelectasis or pneumonitis in the left perihilar region. No infiltrate is seen on the right. The heart is upper limits of normal in size. There is calcification of the thoracic aorta. Mediastinal silhouette is unchanged. Electronically Signed by Sai Harper MD 01/25/2019 09:16 A
[2019-01-25] MEDS: MONTELUKAST 10 MG TAB PO SCH (09:46)
[2019-01-25] MEDS: rifAXIMin 550 MG TAB (XIFAXAN) PO SCH ×2 (09:46→20:44)
[2019-01-25] MEDS: FEBUXOSTAT 40 MG TABLET (ULORIC) PO SCH (09:46)
[2019-01-25] MEDS: SPIRONOLACTONE 12.5MG PER 1/2 TABLET PO SCH (09:46)
[2019-01-25] MEDS: OMEPRAZOLE 20 MG CAP PO SCH (09:46)
[2019-01-25] MEDS: ENOXAPARIN 40 MG/0.4 ML SYRINGE (J1650) SC SCH (09:47)
[2019-01-25 11:20] VITALS: BP 134/71
[2019-01-25 11:25] VITALS: BP_SYST 129; BP_SYST 134; BP_DIAS 65; BP_DIAS 71
[2019-01-25] MEDS: prednisoLONE ACET 1% OPHTH SUSP 5ML OU SCH ×4 (11:46→20:44)
[2019-01-25 14:00] VITALS: BP 131/65
[2019-01-25 16:00] VITALS: BP_SYST 129; BP_SYST 152; BP_SYST 167; BP_DIAS 64; BP_DIAS 70; BP_DIAS 83
[2019-01-25] MEDS ORDERED: PREVNAR 13 VACCINE SYRINGE (CPT CODE:90670) IM ONE (16:00)
--- NOTE | 2019-01-25 16:50 | IPNPDOC ---
Subjective Date Seen The patient was seen on 01/25/19. Subjective Chief Complaint/HPI no further presyncope Constitutional: Denies: Chills, Fever Eyes: Denies: Pain ENT: Denies: Head Aches Pulmonary: Denies: Dyspnea Cardiovascular: Denies: Chest Pain Gastrointestinal: Denies: Nausea, Vomiting Objective Physical Examination General Exam: Positive: Alert, Cooperative, No Acute Distress ENT Exam: Positive: Atraumatic, Mucous membr. moist/pink Neck Exam: Negative: JVD Chest Exam: Positive: Clear to auscultation, Normal air movement Heart Exam: Positive: Rate Normal, Normal S1, Normal S2 Abdomen Exam: Positive: Soft Extremity Exam: Negative: Tenderness, Swelling Psych Exam: Positive: Oriented x 3 Assessment /Plan Problems (1) Pre-syncope Status: Acute Problem Text: favor 2 OH-transient sx for ~1-2 mins p sitting up from lying on side (for ~30 mins) while watching TV TTE P 01/24 BCX2 P telemetry unremarkable 01/24 CTA chest: 1. No pulmonary emboli. 2. There is mild cardiomegaly with increase in size of heart compared with prior scan. There are coronary artery calcifications. 3. There are areas of groundglass opacity bilaterally. This could represent areas of edema or infection. 4. There is a more focal area of consolidation in the left upper lobe. 5. Stable splenomegaly, 17 cm. (2) End stage liver disease Problem Text: 2 PBC on HD rifaximin 2 HE (3) Pancytopenia Status: Chronic Response to Treatment: Stable Problem Text: at baseline 2 hypersplenism 2 ESLD 01/25 2.2/9.1/105K (4) Physical deconditioning Status: Chronic (5) DM2 (diabetes mellitus, type 2) Status: Chronic Response to Treatment: Stable Problem Text: HD ins det 76 QHS AC TID BG low 200s on ins det 40 (6) CAD (coronary artery disease) Status: Chronic Problem Text: no s/s angina/CHF serial CIP/T-I - x 3 (7) Physical deconditioning Status: Chronic Problem Text: 01/25 PT eval Plan/VTE VTE Prophylaxis Ordered?: Yes VS, I&O, 24H, Fishbone Vital Signs/I&O Vital Signs Date Time Temp Pulse Resp B/P (MAP) Pulse Ox O2 Delivery O2 Flow Rate FiO2 01/25/19 14:00 98.1 80 18 131/65 (87) 95 01/25/19 11:02 Room Air Laboratory Data 24H LABS Laboratory Tests 2 01/24/19 21:53: Bedside Glucose (Misc Panel) 226H 01/24/19 22:46: Total Creatine Kinase 74, Creatine Kinase MB 1.3, Creatine Kinase MB Relative Index 1.76, Troponin I < 0.02 01/25/19 06:41: Total Creatine Kinase 70, Creatine Kinase MB 1.6, Creatine Kinase MB Relative Index 2.29, Troponin I < 0.02, Nucleated Red Blood Cells % (auto) 0.0, Anion Gap 5L, Glomerular Filtration Rate 55.9, Blood Urea Nitrogen 31H, Creatinine 1.04, Sodium Level 140, Potassium Level 4.3, Chloride Level 108H, Carbon Dioxide Level 27, Calcium Level 8.8, Magnesium Level 2.2 01/25/19 07:18: Bedside Glucose (Misc Panel) 200H 01/25/19 11:41: Bedside Glucose (Misc Panel) 313H CBC/BMP Laboratory Tests 01/25/19 06:41 Red Blood Count 4.06, Mean Corpuscular Volume 76.8 L, Mean Corpuscular Hemoglo bin 22.4 L, Mean Corpuscular Hemoglobin Concent 29.2 L, Red Cell Distribution Width 16.9 H, Calcium Level 8.8 Microbiology Microbiology 01/24/19 Blood Culture - Preliminary, Resulted No growth after 24 hours . All specim... 01/24/19 Blood Culture - Preliminary, Resulted No growth after 24 hours . All specim... Gaurav Noguera M.D. Jan 25, 2019 16:50
[2019-01-25 20:00] VITALS: BP_SYST 152; BP_SYST 160; BP_DIAS 60; BP_DIAS 63; BP_DIAS 81
[2019-01-25] MEDS: LEVEMIR (INSULIN DETEMIR) 1 UNITS/0.01ML SC SCH (20:44)
[2019-01-25 22:00] VITALS: BP 116/64
[2019-01-26] MEDS: LEVOTHYROXINE 75MCG TABLET (0.075MG) PO SCH (05:29)
[2019-01-26 06:00] VITALS: BP 133/66
[2019-01-26 06:12] LABS: BASO % 0.4 % (0.0-1.0); EOS % 1.7 % (0.0-3.0); HEMATOCRIT 32.4 % (36.0-47.0); HEMOGLOBIN 9.5 g/dl (12.0-15.5); LYMPH # 0.7 10^3/uL (1.5-4.5); LYMPH % 28.3 % (24.0-44.0); MEAN CORPUSCULAR HEMOGLOBIN 22.6 pg (27.0-33.0); MEAN CORPUSCULAR HGB CONC 29.3 g/dl (32.0-36.5); MEAN CORPUSCULAR VOLUME 77.1 fl (80.0-96.0); MONO # 0.3 10^3/uL (0.0-0.8); MONO % 13.5 % (0.0-5.0); NEUTROPHILS # 1.3 10^3/uL (1.8-7.7); NEUTROPHILS % 55.7 % (36.0-66.0); PLATELET COUNT, AUTOMATED 109 10^3/uL (150-450); WHITE BLOOD COUNT 2.4 10^3/uL (4.0-10.0)
[2019-01-26 06:17] LABS: ALBUMIN 3.6 GM/DL (3.2-5.2); BILIRUBIN,TOTAL 0.3 MG/DL (0.2-1.0); CALCIUM LEVEL 8.8 MG/DL (8.8-10.2); CREATININE FOR GFR 1.03 MG/DL (0.55-1.30); GLOMERULAR FILTRATION RATE 56.6 (>45); POTASSIUM SERUM 4.5 MEQ/L (3.5-5.1); TOTAL PROTEIN 6.9 GM/DL (6.4-8.2)
[2019-01-26 08:00] VITALS: BP_SYST 112; BP_SYST 114; BP_DIAS 58; BP_DIAS 66; BP_DIAS 68
[2019-01-26] MEDS: FEBUXOSTAT 40 MG TABLET (ULORIC) PO SCH (08:44)
[2019-01-26] MEDS: SPIRONOLACTONE 12.5MG PER 1/2 TABLET PO SCH (08:44)
[2019-01-26] MEDS: OMEPRAZOLE 20 MG CAP PO SCH (08:44)
[2019-01-26] MEDS: MONTELUKAST 10 MG TAB PO SCH (08:44)
[2019-01-26] MEDS: rifAXIMin 550 MG TAB (XIFAXAN) PO SCH (08:44)
[2019-01-26] MEDS: prednisoLONE ACET 1% OPHTH SUSP 5ML OU SCH (08:45)
[2019-01-26] MEDS: HumaLOG INSULIN (NovoLOG) PER UNIT SC SCH ×2 (08:45→12:00)
[2019-01-26] MEDS: ENOXAPARIN 40 MG/0.4 ML SYRINGE (J1650) SC SCH (08:45)
[2019-01-26] MEDS: BUDESONIDE 0.5 MG/2 ML INHALATION SUSPENSION INH SCH (08:55)
[2019-01-26] MEDS: IPRATROPIUM 0.5MG/ALBUTEROL 2.5MG INH SOL UD 3ML (DUONEB)(J7620) NEB PRN (08:55)
--- NOTE | 2019-01-27 14:51 | DSES ---
DATE OF ADMISSION: 01/24/2019 DATE OF DISCHARGE: 01/26/2019 PRIMARY CARE PROVIDER (PCP): Zachary Melchor. ATTENDING PHYSICIAN: Dr. Gaurav Noguera. HISTORY OF PRESENT ILLNESS: A 68-year-old female with a past medical history significant for hypertension, diabetes, dyslipidemia, coronary artery disease (CAD) and pancytopenia, presents to the emergency room (ER) with chief complaint of a near syncopal event. Patient had been sitting down watching TV. She became short of breath. On standing up, she noted some lightheadedness and dizziness and felt like she was going to pass out. She was subsequently admitted to the [facility] medicine service for observation. HOSPITAL COURSE: Patient was maintained on telemetry and proved no significant arrhythmias. Echocardiogram was obtained and results are pending. EKG was obtained, shows normal sinus rhythm, right bundle branch block, with nonspecific ST-T wave changes. No significant changes compared to prior EKG on 10/05/2018. Imaging completed includes CT of the brain, which showed chronic changes without hemorrhage and some vascular calcifications. Chest x-ray and CT angiogram, which proved negative for pulmonary emboli, was noted to have mild cardiomegaly with increase in size of heart compared to prior scan and some coronary artery calcifications, and it was also noted areas of ground glass opacity bilaterally and a consolidation of the left upper lobe. She was noted a stable splenomegaly. Patient remained afebrile. White blood cell count remained in the 2-3 range, which is normal for patient. She had some chronic anemia; however, hemoglobin remained stable between 9.1 and 9.8. Platelets were stable in the 109 range. Renal function remained stable throughout hospitalization. Blood cultures obtained and showed no growth. Patient status post physical therapy evaluation and was deemed safe for home. Patient had orthostatic blood pressures obtained, with no significant changes throughout hospitalization. On physical examination today, blood pressure is 133/66, with a heart rate of 83, respiratory rate 15, oxygen saturation 94% on room air. HEENT: Neck is supple without lymphadenopathy or jugular venous distention (JVD). CARDIOVASCULAR: Heart rate and rhythm are regular. PULMONARY: Lungs are clear. ABDOMEN: Soft and nontender. BILATERAL LOWER EXTREMITIES: Without any edema. ASSESSMENT: 1. Near syncope. Most likely orthostatic hypotension secondary to vasovagal reaction. 2. History of coronary artery disease (CAD). 3. Hypothyroidism. 4. Diabetes. 5. End-stage liver disease. 6. Pancytopenia. PLAN: Patient will be discharged to home. She will follow up with her primary care provider (PCP) within the next 3-5 days. Echocardiogram results need to be followed up with. Diet is 2 gram sodium, carbohydrate-consistent. Activity is as tolerated. MEDICATIONS: Are as follows: - albuterol sulfate two puffs every 4 hours as needed for shortness of breath. - atorvastatin/calcium 80 mg one daily - budesonide one puff twice a day - esomeprazole 40 mg one daily - Uloric 40 mg one by mouth daily - NovoLog FlexPen 42 units subcutaneous three times a day - Levemir Flex Touch 76 units subcutaneous at bedtime - levothyroxine sodium 75 mcg by mouth every morning - Singulair 10 mg by mouth daily - nitroglycerin 0.4 mg tablets sublingual every 5 minutes as needed for chest pain - Nystatin ointment one application topically daily as needed for rash or itching - prednisolone acetate eye drops 5 mL drops one drop each eye four times a day - rifaximin 550 mg by mouth twice a day - spironolactone 12.5 mg by mouth daily Patient is discharged in stable and satisfactory condition with no further questions at time of discharge.
--- NOTE | 2019-01-28 06:58 | ECHO ---
DATE OF STUDY: 01/26/2019 REFERRING PHYSICIAN: Dr. Gaurav Noguera INDICATION: Syncope. HEIGHT: 155 cm. WEIGHT: 102 kg. 2-D MEASUREMENTS: Ventricular septum: 0.74 cm Posterior wall: 0.87 cm Left ventricle diastole: 4.2 cm Aortic root: 2.7 cm Left atrium: 3.1 cm Aortic annulus: 2.0 cm Left atrial volume index: 17 Inferior vena cava: 1.0 cm DOPPLER MEASUREMENTS: Aortic valve velocity: 114 cm/sec LVOT velocity: 114 cm/sec LVOT VTI: 24.6 cm Mitral E velocity: 66.6 cm/sec Mitral A velocity: 94.3 cm/sec Mitral deceleration time: 180 ms Very mild tricuspid regurgitation Estimated right ventricular systolic pressure 21 mmHg assuming a right atrial pressure of 5 mmHg MITRAL ANNULAR TISSUE DOPPLER: E prime lateral: 12.0 cm/sec E prime septal: 5.65 cm/sec DESCRIPTION: The rhythm was sinus with appearance of a right bundle branch block type morphology. Image quality was adequate. No pericardial effusion. CONCLUSIONS: 1. Normal left ventricle internal dimensions and wall thickness. Normal regional LV wall motion and wall thickening. Normal LV systolic function. LVEF 70% by visual estimate. Grade 1 LV diastolic function (impaired relaxation and filling pattern). Normal left atrial size. 2. Normal right ventricle size and systolic function. Normal right atrial size. 3. Mild aortic valve sclerosis of a 3-cuspid aortic valve. No aortic regurgitation. 4. Mild mitral annular calcification. No mitral regurgitation. 5. Otherwise normal appearing echocardiogram Doppler findings. ADDITIONAL COMMENTS AND RECOMMENDATIONS: If this patient has a good history for non vasovagal cardiac syncope and concurrent complete right bundle branch block, then patient meets criteria for implantation of a permanent pacemaker.
== END 2019-01-26 12:35 | disposition home or self-care (01) ==
LOC: M ED 14:10 → M ED INP 18:10 → M MSPAV 01-25 11:08
PROVIDERS: ADMIT Internal Medicine; ATTEND Family Medicine
DX: R55 Syncope and collapse (principal); I10 Essential (primary) hypertension; E11.9 Type 2 diabetes mellitus without complications; E78.5 Hyperlipidemia, unspecified; I25.10 Atherosclerotic heart disease of native coronary artery without angina pectoris; D61.818 Other pancytopenia; K72.90 Hepatic failure, unspecified without coma; J45.909 Unspecified asthma, uncomplicated; K21.9 Gastro-esophageal reflux disease without esophagitis; Z79.899 Other long term (current) drug therapy; Z79.4 Long term (current) use of insulin; Z79.51 Long term (current) use of inhaled steroids; Z88.8 Allergy status to other drugs, medicaments and biological substances; Z87.891 Personal history of nicotine dependence
CPT/HCPCS: 36415; 70450; 71045; 71275; 80048; 80053; 80076; 82140; 82550; 82553; 83690; 83735; 83880; 84439; 84443; 84484; 85025; 85027; 85610; 85730; 86850; 86900; 86901; 87040; 90471; 90670; 93005; 93041; 93306; 94640; 94760; 96372; 97161; 99285; G0378; J1650; Q9967

== ENCOUNTER → 2019-03-15 | Outpatient (CLI) | payer MEDICARE ==
[~2019-03-15] MED LIST changes: +BUDE180INH INH; -FEBU40TA PO; +FEBU40TA4 PO; +LEVO75TA4 PO; +NITR4TASL SL; +NYSTOI TOP; +PREDOPD OU; +PROAAER10 INH
--- NOTE | 2019-03-15 11:10 | REPMRS ---
Patient History The patient states she had a clinical breast exam in 03/2019. No known family history of cancer. No Hormone Replacement Therapy 3D TOMOSYNTHESIS WAS PERFORMED. [facility] for [facility] 2.7%. Digital Woman Screen Mammo: March 15, 2019 - Exam #: [id number] Bilateral CC and MLO view(s) were taken. Technologist: Maricel Sanchez, Technologist Prior study comparison: March 13, 2018, bilateral digital woman screen mammo performed at [facility]. March 14, 2017, digital woman screen mammo performed at [facility]. FINDINGS: There are scattered fibroglandular densities. There has been no change in the appearance of the mammogram from the prior studies. There is a mild amount of residual fibroglandular tissue which is fairly symmetric. There is no interval development of dominant mass, architectural distortion, or clustered microcalcification suggestive of malignancy. Assessment: BI-RADS/ACR category 1 mammogram. Negative Mammogram. Recommendation Routine screening mammogram in 1 year (for women over age 40). This mammogram was interpreted with the aid of an FDA-approved computer-aided dectection system. Electronically Signed By: Sai Harper MD 03/15/19 0795
== END ==
LOC: M WHC 09:39
PROVIDERS: ATTEND Nurse Practitioner Family
DX: Z12.31 Encounter for screening mammogram for malignant neoplasm of breast (principal)
CPT/HCPCS: 77063; 77067; G0463

== ENCOUNTER → 2019-03-23 | Outpatient (REF) | payer MEDICARE ==
[~2019-03-23] MED LIST changes: +BENA25CA4 PO; +BREO1INH; +GABA-1171; +HYDR-3363 PO; +PRED20TA PO
[2019-03-23 21:05] LABS: ALBUMIN 3.7 GM/DL (3.2-5.2); BILIRUBIN,TOTAL 0.3 MG/DL (0.2-1.0); CALCIUM LEVEL 9.4 MG/DL (8.8-10.2); CREATININE FOR GFR 1.12 MG/DL (0.55-1.30); GLOMERULAR FILTRATION RATE 51.3 (>45); POTASSIUM SERUM 4.3 MEQ/L (3.5-5.1); TOTAL PROTEIN 6.7 GM/DL (6.4-8.2)
[2019-03-23 21:49] LABS: HEMOGLOBIN A1c 8.3 %
== END ==
LOC: M SFHCADAM 14:24
PROVIDERS: ATTEND Physician Assistant Medical
DX: E11.65 Type 2 diabetes mellitus with hyperglycemia (principal); E66.01 Morbid (severe) obesity due to excess calories; K74.60 Unspecified cirrhosis of liver
CPT/HCPCS: 80053; 82105; 83036; G0463

== ENCOUNTER 2019-05-06 18:57 | Emergency (ER) | payer MEDICARE ==
[~2019-05-06] VITALS: Ht 152.4 cm; Wt 105.9 kg
[~2019-05-06 18:57] MED LIST changes: -BENA25CA4 PO; -BREO1INH; -GABA-1171; -HYDR-3363 PO; -PRED20TA PO
[2019-05-06] MEDS ORDERED: GABA-1171 (19:15)
[2019-05-06] MEDS ORDERED: BREO1INH (19:15)
[2019-05-06] MEDS ORDERED: diphenhydrAMINE INJ 50MG/ML VIAL (J1200) IV STA (19:49)
[2019-05-06] MEDS ORDERED: hydrOXYzine 25 MG TAB PO STA (19:49)
[2019-05-06] MEDS ORDERED: methylPREDNISolone INJ 125 MG/2 ML VIAL (J2930) IV ONE (20:00)
[2019-05-06 20:23] LABS: EOS # 0.1 10^3/uL (0.0-0.5); EOS % 2.9 % (0.0-3.0); HEMATOCRIT 31.2 % (36.0-47.0); HEMOGLOBIN 8.9 g/dl (12.0-15.5); LYMPH % 34.9 % (24.0-44.0); MEAN CORPUSCULAR HEMOGLOBIN 21.7 pg (27.0-33.0); MEAN CORPUSCULAR HGB CONC 28.5 g/dl (32.0-36.5); MEAN CORPUSCULAR VOLUME 76.1 fl (80.0-96.0); MONO # 0.2 10^3/uL (0.0-0.8); MONO % 7.2 % (0.0-5.0); NEUTROPHILS # 1.5 10^3/uL (1.5-8.5); NEUTROPHILS % 54.6 % (36.0-66.0); PLATELET COUNT, AUTOMATED 154 10^3/uL (150-450); WHITE BLOOD COUNT 2.8 10^3/uL (4.0-10.0)
[2019-05-06 20:48] LABS: ERYTHROCYTE SEDIMENTATION RATE 37 mm/hr (0-30)
[2019-05-06] MEDS ORDERED: HYDR-3363 PO (21:15)
[2019-05-06] MEDS ORDERED: PRED20TA PO (21:15)
[2019-05-06] MEDS ORDERED: BENA25CA4 PO (21:15)
[2019-05-06 21:21] VITALS: BP 112/61
== END 2019-05-06 21:29 | disposition home or self-care (01) ==
LOC: M ED 18:57
DX: L50.9 Urticaria, unspecified (principal); I50.9 Heart failure, unspecified; E11.9 Type 2 diabetes mellitus without complications; E78.5 Hyperlipidemia, unspecified; I10 Essential (primary) hypertension; J44.9 Chronic obstructive pulmonary disease, unspecified; K74.60 Unspecified cirrhosis of liver; E03.9 Hypothyroidism, unspecified; Z87.891 Personal history of nicotine dependence; Z79.4 Long term (current) use of insulin; Z79.899 Other long term (current) drug therapy; Z88.8 Allergy status to other drugs, medicaments and biological substances; Z91.018 Allergy to other foods
CPT/HCPCS: 85025; 85652; 86140; 96374; 96375; 99283; J1200; J2930

== ENCOUNTER → 2019-05-17 | Outpatient (CLI) | payer MEDICARE ==
[~2019-05-17] MED LIST changes: +BENA25CA4 PO; +BREO1INH; +GABA-1171; +HYDR-3363 PO; +PRED20TA PO
--- NOTE | 2019-05-17 08:57 | REP ---
Right upper quadrant sonography: History: Cirrhosis. Comparison study: October 22, 2018. Findings: Scanning through the right upper quadrant of the abdomen demonstrates a normal sized, thin-walled gallbladder without evidence of stone or polyp. Common bile duct is normal measuring 0.2 cm in greatest diameter. No focal liver lesion is seen. Liver size is normal. No pancreatic abnormality is observed. No right renal abnormality is seen. There is no evidence of ascites. The right kidney measures 9.1 x 3.9 x 3.3 cm. Impression: Negative right upper quadrant sonography. Electronically Signed by Kendell Lou MD 05/17/2019 08:49 A
== END ==
LOC: M RAD 07:02
PROVIDERS: ATTEND Physician Assistant Medical
DX: K74.60 Unspecified cirrhosis of liver (principal)

== ENCOUNTER → 2019-07-05 | Outpatient (REF) | payer MEDICARE ==
[2019-07-05 14:07] LABS: ALBUMIN 3.9 GM/DL (3.2-5.2); BILIRUBIN,TOTAL 0.5 MG/DL (0.2-1.0); CALCIUM LEVEL 9.1 MG/DL (8.8-10.2); CREATININE FOR GFR 1.13 MG/DL (0.55-1.30); FREE T4 1.04 NG/DL (0.76-1.46); GLOMERULAR FILTRATION RATE 50.7 (>39); POTASSIUM SERUM 4.7 MEQ/L (3.5-5.1); THYROID STIMULATING HORMONE 1.77 uIU/ML (0.358-3.740); TOTAL PROTEIN 7.3 GM/DL (6.4-8.2)
[2019-07-05 14:55] LABS: HEMOGLOBIN A1c 8.4 %
== END ==
LOC: M SFHCADAM 09:04
PROVIDERS: ATTEND Family Medicine
DX: E11.65 Type 2 diabetes mellitus with hyperglycemia (principal)

== ENCOUNTER → 2019-09-17 | Outpatient (REF) | payer MEDICARE ==
[~2019-09-17] MED LIST changes: -MONT10TA2 PO; +MONT10TA4 PO
[2019-09-17 16:10] LABS: BASO % 0.3 % (0.0-1.0); HEMATOCRIT 30.9 % (36.0-47.0); HEMOGLOBIN 8.7 g/dl (12.0-15.5); LYMPH # 0.9 10^3/uL (1.5-5.0); MEAN CORPUSCULAR HEMOGLOBIN 20.4 pg (27.0-33.0); MEAN CORPUSCULAR HGB CONC 28.2 g/dl (32.0-36.5); MEAN CORPUSCULAR VOLUME 72.4 fl (80.0-96.0); MONO # 0.2 10^3/uL (0.0-0.8); MONO % 8.3 % (0.0-5.0); NEUTROPHILS # 1.7 10^3/uL (1.5-8.5); NEUTROPHILS % 59.1 % (36.0-66.0); PLATELET COUNT, AUTOMATED 140 10^3/uL (150-450); RED BLOOD COUNT 4.27 10^6/uL (4.00-5.40); WHITE BLOOD COUNT 2.9 10^3/uL (4.0-10.0)
[2019-09-17 16:29] LABS: HEMOGLOBIN A1c 9.5 %
[2019-09-17 16:38] LABS: ALBUMIN 3.8 GM/DL (3.2-5.2); BILIRUBIN,TOTAL 0.3 MG/DL (0.2-1.0); CALCIUM LEVEL 8.8 MG/DL (8.8-10.2); CREATININE FOR GFR 1.28 MG/DL (0.55-1.30); GLOMERULAR FILTRATION RATE 43.9 (>39); POTASSIUM SERUM 3.9 MEQ/L (3.5-5.1); TOTAL PROTEIN 7.2 GM/DL (6.4-8.2)
== END ==
LOC: M SFHCADAM 15:09
PROVIDERS: ATTEND Family Medicine
DX: L29.9 Pruritus, unspecified (principal); R21 Rash and other nonspecific skin eruption; E11.69 Type 2 diabetes mellitus with other specified complication
CPT/HCPCS: 80053; 83036; 85025; G0463

== ENCOUNTER → 2019-11-24 | Outpatient (REF) | payer MEDICARE ==
[2019-11-24 17:36] LABS: FREE T4 1.15 NG/DL (0.76-1.46); THYROID STIMULATING HORMONE 1.29 uIU/ML (0.358-3.740)
[2019-11-24 17:56] LABS: HEMOGLOBIN A1c 9.5 %
== END ==
LOC: M SFHCADAM 13:45
PROVIDERS: ATTEND Family Medicine
DX: F41.9 Anxiety disorder, unspecified (principal); E11.69 Type 2 diabetes mellitus with other specified complication
CPT/HCPCS: 83036; 84439; 84443; G0463

== ENCOUNTER → 2020-01-26 | Outpatient (CLI) | payer MEDICARE ==
[~2020-01-26] MED LIST changes: +PANT40TA29 PO; -PANT40TA3 PO
--- NOTE | 2020-01-26 09:46 | REP ---
Clinical: Cirrhosis. Comparison: 05/17/2019. Technique: Real time ho scale and color evaluation using linear high frequency transducer. Findings: The liver is demonstrates a very subtle micronodular contour and increased parenchymal echotexture with poor through transmission suggesting fatty infiltration and/or hepatocellular disease. No focal hepatic lesion identified. No hepatomegaly. The pancreas is incompletely evaluated due to interposed bowel gas but visualized portions appear normal. The gallbladder is unremarkable and without gallstones, wall thickening, or pericholecystic fluid. No biliary ductal dilatation is appreciated and the common bile duct measures 3.0 mm diameter. The right kidney is normal in reniform shape without hydronephrosis and measures 9.6 x 5.8 x 3.9 cm. No ascites. Impression: Findings suggesting fatty infiltration to the liver and/or hepatocellular disease consistent with cirrhosis. No focal hepatic lesion identified. Electronically Signed by Thomas Montanez MD 01/26/2020 09:38 A
== END ==
LOC: M PLAIMG 08:42
PROVIDERS: ATTEND Family Medicine
DX: K74.60 Unspecified cirrhosis of liver (principal)

== ENCOUNTER → 2020-02-18 | Outpatient (REF) | payer MEDICARE ==
[2020-04-13 15:22] LABS: ALBUMIN 3.7 GM/DL (3.2-5.2); BILIRUBIN,TOTAL 0.3 MG/DL (0.2-1.0); CALCIUM LEVEL 9.3 MG/DL (8.8-10.2); GLOMERULAR FILTRATION RATE 58.2 (>39); HEMOGLOBIN A1c 11.3 %; POTASSIUM SERUM 4.4 MEQ/L (3.5-5.1); TOTAL PROTEIN 7.1 GM/DL (6.4-8.2)
== END ==
LOC: M SFHCADAM 08:46
PROVIDERS: ATTEND Family Medicine
DX: E11.8 Type 2 diabetes mellitus with unspecified complications (principal)

== ENCOUNTER → 2020-05-04 | Outpatient (CLI) | payer MEDICARE ==
--- NOTE | 2020-05-04 21:01 | REP ---
INDICATION: INJURY L KNEE COMPARISON: None. TECHNIQUE: AP, lateral, bilateral oblique and sunrise views. FINDINGS: Age-related osteopenia and generalized age-related changes are appreciated. The osseous structures and joint spaces are intact and there is no evidence for acute fracture or dislocation. No joint effusion is appreciated. Surrounding soft tissues are unremarkable. Peripheral vascular disease noted. No subcutaneous emphysema or radiodense foreign body. IMPRESSION: No acute fracture or dislocation. <Electronically signed by Thomas Montanez > 05/04/20 7423
== END ==
LOC: M ADAMS 09:45
PROVIDERS: ATTEND Family Medicine
DX: S89.92XA Unspecified injury of left lower leg, initial encounter (principal)

== ENCOUNTER 2020-07-26 08:21 | Emergency (ER) | payer MEDICARE ==
[~2020-07-26] VITALS: Ht 144.8 cm; Wt 107.0 kg
[~2020-07-26 08:21] MED LIST changes: +LISI10TA22; -LISI10TA4; +MONT10TA10 PO; -MONT10TA4 PO
[2020-07-26 09:09] LABS: BASO % 0.4 % (0.0-1.0); EOS % 1.5 % (0.0-3.0); HEMATOCRIT 37.8 % (36.0-47.0); HEMOGLOBIN 11.7 g/dl (12.0-15.5); LYMPH # 0.7 10^3/uL (1.5-5.0); LYMPH % 27.4 % (24.0-44.0); MEAN CORPUSCULAR HEMOGLOBIN 25.9 pg (27.0-33.0); MEAN CORPUSCULAR VOLUME 83.8 fl (80.0-96.0); MONO # 0.3 10^3/uL (0.0-0.8); MONO % 9.4 % (0.0-5.0); NEUTROPHILS # 1.6 10^3/uL (1.5-8.5); NEUTROPHILS % 60.9 % (36.0-66.0); PLATELET COUNT, AUTOMATED 112 10^3/uL (150-450); RED BLOOD COUNT 4.51 10^6/uL (4.00-5.40); WHITE BLOOD COUNT 2.7 10^3/uL (4.0-10.0)
--- NOTE | 2020-07-26 09:09 | REP ---
INDICATION: CHEST PAIN. COMPARISON: Comparison chest x-ray January 24, 2019. TECHNIQUE: Portable upright AP chest radiograph. FINDINGS: The lungs are well inflated and free of infiltrate. Pleural angles are sharp. Heart size is normal. Pulmonary vasculature is not increased. Monitoring electrodes are visible. IMPRESSION: No active disease. <Electronically signed by Jonathan Lou > 07/26/20 0906
[2020-07-26 09:47] LABS: BLOOD UREA NITROGEN 35 MG/DL (7-18); CALCIUM LEVEL 9.7 MG/DL (8.8-10.2); CARBON DIOXIDE LEVEL 23 MEQ/L (21-32); CHLORIDE LEVEL 107 MEQ/L (98-107); CK-MB VALUE MASS 1.5 NG/ML (<3.6); CPK CREATINE PHOSPHOKINASE 66 U/L (26-192); CREATININE FOR GFR 1.13 MG/DL (0.55-1.30); GLOMERULAR FILTRATION RATE 50.5 (>39); GLUCOSE, FASTING 267 MG/DL (70-100); MB/CK RELATIVE INDEX 2.27 (< OR =4); POTASSIUM SERUM 4.2 MEQ/L (3.5-5.1); SODIUM LEVEL 140 MEQ/L (136-145); TROPONIN I < 0.02 NG/ML (< 0.10)
--- OUTSIDE RECORDS SUMMARY | 2020-07-26 09:48 | CCD ---
Author Author [facility] Organization [facility] Address Unknown Phone Unavailable Care Team Providers Care Medication Technician Name Role Phone Hillary Williamson Unavailable PROBLEMS Type Condition ICD9-CM Code DOR54-EB Code Onset Dates Condition S tatus SNOMED Code Notes Problem MONROE (obstructive sleep apnea) G47.33 Active 78 324660 Problem Hypertensive heart disease without heart failure I 11.9 Active 85872316 Problem Cirrhosis of liver K74.60 Active 54571151 Problem Senile osteoporosis M81.0 Active 26013982 Problem Cirrhosis of liver without ascites, unsp ecified hepatic cirrhosis type K74.60 Active 03778327 Problem Hepatic cirrhosis, unspecified hepatic cirrhosis type K74.60 Active 45774118 Problem Essential hypertension I10 Active 34853316 Problem DM w/o complication type II E11.9 Active 4405 4006 Problem Other pancytopenia D61.818 Active 863477372 Problem Mixed hyperlipidemia E78.2 Active 017100744 Problem Atherosclerosis of [place] co ronary artery of [place] heart without angina pectoris I25.10 Active 365151345071288 Problem Type 2 diabetes mellitus with hyperglycemia E11.65 Active 01053181 Problem Morbid (severe) obesity due to excess calories E66 .01 Active 863267474 Problem Body mass index (BMI) of 40.0-44.9 in adult Z68.41 Active 006175600 Problem Type 2 diabetes mellitus with other specified complication E11.69 Active 53754145 Problem Obesity, unspecified E66.9 Active 534622624 Problem Psoriasis L40.9 Active 9624039 Problem Constipation, unspecified constipation type K59.00 Active 81351575 Problem Mild intermittent asthma without complication J45. 20 Active 998127419 Problem Anxiety F41.9 Active 24904626 Problem Chronic gout due to renal impairment without top hus, unspecified site M1A.30X0 Active 207935544392261 Problem Gastroesophageal reflux disease without esophagitis K21.9 Active 497744807 Problem Scalp psoriasis L40.9 Active 047730401 Problem Moderate persistent asthma, unspecified whether complicate d J45.40 Active 319675301 Problem Hypothyroidism, unspecified type E03.9 Active 33948527 Problem Right bundle branch block I45.10 Active 755292 01 ALLERGIES Allergen (clinical drug ingredient) Drug/Non Drug Allergy do cumented on EMR Reaction Allergy Type Onset Date Status Aspirin aspirin vonwillenbrands Non Drug Allergy Act paulette allopurinol/colchicine pancytopenia Non Drug Allergy Active ENCOUNTERS from 1950 to 2020-07-20 Encounter Location Date Provider Diagnosis [facility] [address] [place] [id number] Jul, Hillary Muna-Tartell IMMUNIZATIONS Vaccine Route Administration Date Status Influenza (High Dose 65 & up) IM Intramuscular Apr 16, 2017 A dministered Influenza (High Dose 65 & up) IM Intramuscular Apr 19, 2016 A dministered Influenza (High Dose 65 & up) IM Intramuscular May 09, 2015 A dministered Influenza (High Dose 65 & up) IM Intramuscular May 17, 2014 A dministered TDAP IM Intramuscular October 31, 2015 Administered Pneumococcal 0.5mL (Prevnar 13) IM Intramuscular November 18, 2014 Administered Influenza (18 yrs & older) Flublok IM Intramuscular May 07, 2018 Administered Influenza (6mo & up) Fluzone IM Intramuscular May 20, 2013 Ad ministered Influenza (18 yrs & older) Flublok IM Intramuscular May 28, 2019 Administered Influenza (6mo & up) Fluzone IM Intramuscular Mar 26, 2012 Ad ministered Influenza (18 yrs & older) Flublok IM Intramuscular May 22, 2020 Administered Influenza (6mo & up) Fluzone IM Intramuscular May 11, 2010 Ad ministered SOCIAL HISTORY Sex Assigned At : Social History Observation Description Sex Assigned At Unknown Education: Question Answer Notes Level of Education: Not finished High School has GED Audit Question Answer Notes Total Score: 0 Interpretation: Alcohol Education Catholic: Question Answer Notes Catholic 03 [employer] Sexual Hx: Question Answer Notes Had sex in the last 12 months (vaginal, oral, or anal)? No LMP: hyster Have you ever had an STD? No Drug and Alcohol Question Answer Notes Total Score: 0 Interpretation: No problems reported Alcohol Screening: Question Answer Notes Did you have a drink containing alcohol in the past year? No Points 0 Interpretation Negative BMI Care Goal Follow-Up Question Answer Notes Above Normal BMI Follow-Up Giving encouragement to exercise REASON FOR REFERRAL No Information VITAL SIGNS No information MEDICATIONS Medication SIG (Take, Route, Frequency, Duration) Notes Start Da te End Date Status Pen Tracy 31G X 6 MM as directed DX:11.9 four times daily for 90 day(s) Jan, Active Nystatin 651252 UNIT/GM 1 application to affected ar ea Externally to groin area Twice a day, prn itching/rash for 30 Active Singulair 10 mg 1 tab(s) Orally daily for 90 Active Lancets - as directed - DX: E11.65 four times daily for 90 day(s) Active Xifaxan 550 MG 1 tablet Orally Twice a day for 90 Active Glucometer as directed intravenously twice daily for 99 days Jul, Active Benadryl Extra Strength 2-0.1 % 1 application as neede d Externally Three times a day as needed for 14 days Jan, Not-Ta mary anne ProAir HFA 108 (90 Base) MCG/ACT 2 puffs Inhalation ev kathrine 4 hrs if needed for 50 Active Nexium 40 mg 1 capsule Orally daily for 90 Active NovoLog Flexpen 100 UNIT/ML as directed, mdd 42 units Subcut aneous tid for 106 Active Gabapentin 100 MG 1 capsule Orally tid for 30 Active Breo Ellipta 100-25 MCG/INH 1 puff Inhalation Once a day for 90 Active Levemir FlexTouch 100 UNIT/ML 46 units Subcutaneous twice daily for 90 day(s) Active Banophen 25 MG 1 tablet as needed Orally every 4 hours as needed for 20 Active Atorvastatin Calcium [address] Mckeon Orally Once a day for 90 Active Nitrostat 0.[address] 1 TABLET UNDER THE TON NANCY EVERY 5 MINUTES UP TO 3 DOSES, FOR CHEST PAIN. IF CHEST PAIN PERSISTS CALL 911 Sublingual for 30 day(s) Active Nystatin 414000 UNIT/GM 1 application to affected ar ea Externally groin Twice a day prn for 30 day(s) May, Active Clotrimazole 1 % 1 application under breasts Externally Twice a day for 14 day(s) May, Active Blood Glucose Test - 1 strip In Vitro DX: E11.65 four times daily fo r 25 Active HydrOXYzine HCl 25 MG 1 tablet as needed Orally bid for 30 day(s ) November, Active Levothyroxine Sodium 50 MCG 1 tablet in the morning on an empty stomach Orally Once a day for 30 day(s) Jan, Active Oxygen 2.5 liters n/c nasal cannula at night as needed Active CPAP mask at night Active Spironolactone 25 MG 1/2 tablet Orally daily Active Uloric 40 MG TAKE ONE TABLET BY MOUTH EVERY DAY Orally Daily for 90 d ays Active PROCEDURES No Information RESULTS No Results REASON FOR VISIT refill MEDICAL (GENERAL) HISTORY Type Description Date Medical History Hypertension, hypertensive h eart disease - LVEF 85% 04/18, [facility] Medical History Atherosclerosis of [place] ronary artery of [place] heart without angina pectoris, NST normal perfusion 07/2015 - [facility] Medical History LVH, borderline pulmonary hypertension, echo 07/2015 - [facility] Medical History hyperlipidemia, mixed Medical History type II diabetes Medical History sleep apnea - on CPAP, PULMONOLOGY Medical History asthma - PFT at [facility] 02/18, FEV1 = 1.94 Medical History fatty liver - primary biliar y cirrhosis, [facility] at [facility] 2010 - not a transplant candidate (normal LFTs) Medical History pancytopenia - [place], secondary to hype rsplenism/cirrhosis Medical History von willenbrands disease Medical History osteoporosis Medical History osteoarthritis Medical History shoulder pain Medical History hx of anxiety Medical History allergic rhinitis Medical History Gout Medical History Esophageal reflux/dysphagia Medical History kidney stones Medical History diabetic retinopathy (nonproliferative) Medical History liver US with chronic disease and no acu te findings (01/2020) Medical History normal RUQ US (09/2016) Medical History Regadenoson stress test low risk (11/2018 ) Surgical History hysterectomy, total with BSO 1975 Surgical History tubal ligation 1973 Surgical History most recent EGD - [facility], with gastric (not esophageal) varices and gastric antral vascular ectasia 10/2016 Surgical History colonoscopy with polypectomy- [facility], [facility] 01/07, 11/12, 04/16, 10/16 Surgical History liver biopsy + cirrhosis, [facility] Hospitalization History surgery related Hospitalization History syncope 01/22 Goals Section No Information Health Concerns No Information MEDICAL EQUIPMENT No Information MENTAL STATUS No Information FUNCTIONAL STATUS No Information ASSESSMENTS No Information PLAN OF TREATMENT Medication Medication Name Sig Start Date Stop Date Levothyroxine Sodium 50 MCG 1 tablet in the morning on an empty stomach Orally Once a day for 30 day(s) Jan, Uloric 40 MG TAKE ONE TABLET BY MOUTH EVERY DAY Orally Daily for 90 days Nexium 40 mg 1 capsule Orally daily for 90 Clotrimazole 1 % 1 application under breasts Externally Twice a day for 14 day(s) May, Nystatin 754527 UNIT/GM 1 application to affected ar ea Externally groin Twice a day prn for 30 day(s) May, Levemir FlexTouch 100 UNIT/ML 46 units Subcutaneous twice daily for 90 day(s) Breo Ellipta 100-25 MCG/INH 1 puff Inhalation Once a day for 90 Atorvastatin Calcium [address] Mckeon Orally Once a day for 90 Singulair 10 mg 1 tab(s) Orally daily for 90 Blood Glucose Test - 1 strip In Vitro DX: E11.65 four times renetta ly for 25 Next Appt Details Provider Name:Hillary Williamson, 2020-10-02 10:00:00 AM, [address], [place], [address], Insurance Providers Payer Name Payer Address Payer Phone Insured Name Patient Relati onship to Insured Coverage Start Date Coverage End Date [facility] [address] [address] [facility] [phone] SHAY JACOME self
--- OUTSIDE RECORDS SUMMARY | 2020-07-26 09:49 | CCD ---
Author Author [facility] Organization [facility] Address Unknown Phone Unavailable Care Team Providers Care Cross Tie Turner Name Role Phone Hillary Williamson Unavailable PROBLEMS Type Condition ICD9-CM Code [id number] Code Onset Dates Condition S tatus SNOMED Code Notes Problem MONROE (obstructive sleep apnea) G47.33 Active 78 557491 Problem Hypertensive heart disease without heart failure I 11.9 Active 53615351 Problem Cirrhosis of liver K74.60 Active 16782401 Problem Senile osteoporosis M81.0 Active 60228041 Problem Cirrhosis of liver without ascites, unsp ecified hepatic cirrhosis type K74.60 Active 12724703 Problem Hepatic cirrhosis, unspecified hepatic cirrhosis type K74.60 Active 78162156 Problem Essential hypertension I10 Active 85567433 Problem DM w/o complication type II E11.9 Active 4405 4006 Problem Other pancytopenia D61.818 Active 856783209 Problem Mixed hyperlipidemia E78.2 Active 350176959 Problem Atherosclerosis of [place] co ronary artery of [place] heart without angina pectoris I25.10 Active 532659892725461 Problem Type 2 diabetes mellitus with hyperglycemia E11.65 Active 99978431 Problem Morbid (severe) obesity due to excess calories E66 .01 Active 751378855 Problem Body mass index (BMI) of 40.0-44.9 in adult Z68.41 Active 800618796 Problem Type 2 diabetes mellitus with other specified complication E11.69 Active 42100236 Problem Obesity, unspecified E66.9 Active 692498734 Problem Psoriasis L40.9 Active 2871905 Problem Constipation, unspecified constipation type K59.00 Active 27325824 Problem Mild intermittent asthma without complication J45. 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, unspecified site M1A.30X0 Active 073890036221966 Problem Gastroesophageal reflux disease without esophagitis K21.9 Active 313288906 Problem Scalp psoriasis L40.9 Active 354294269 Problem Moderate persistent asthma, unspecified whether complicate d J45.40 Active 944680881 Problem Hypothyroidism, unspecified type E03.9 Active 19116440 Problem Right bundle branch block I45.10 Active 974759 01 ALLERGIES Allergen (clinical drug ingredient) Drug/Non Drug Allergy do cumented on EMR Reaction Allergy Type Onset Date Status aspirin jabarillhimabrands Non Drug Allergy Act paulette allopurinol/colchicine pancytopenia Non Drug Allergy Active ENCOUNTERS from 1950 to 2020-06-13 Encounter Location Date Provider Diagnosis [facility] [address] [place] [address] Jun, Hillary Muna-Tartell Hypothyroidism, unspecified type E03.9 IMMUNIZATIONS Vaccine Route Administration Date Status Influenza [...] Notes Total Score: 0 Interpretation: Alcohol Education Presybeterian: Question Answer Notes Presybeterian 03 Confucianism Sexual Hx: Question Answer Notes Had sex [...] Notes Start Da te End Date Status Glucometer as directed intravenously twice daily for 99 days Jul, Active Nystatin 313614 UNIT/GM 1 application to affected ar ea Externally to groin area Twice a day, prn itching/rash for 30 Active Pen [place] 31G X 6 MM as directed DX:11.9 four times daily for 90 day(s) Jan, Active Nexium 40 mg 1 capsule Orally daily for 90 Active ProAir HFA 108 (90 Base) MCG/ACT 2 puffs Inhalation ev kathrine 4 hrs if needed for 50 Active Xifaxan 550 MG 1 tablet Orally Twice a day for 90 Active Benadryl Extra Strength 2-0.1 % 1 application as neede d Externally Three times a day as needed for 14 days Jan, Not-Ta mary anne Nitrostat 0.[address] 1 TABLET UNDER THE TON NANC[place] EVERY 5 MINUTES UP TO 3 DOSES, FOR CHEST PAIN. IF CHEST PAIN PERSISTS CALL 911 Sublingual for 30 day(s) Active NovoLog Flexpen 100 UNIT/ML as directed, mdd 42 units Subcut aneous tid for 106 Active HydrOXYzine HCl 25 MG 1 tablet as needed Orally bid for 30 day(s ) November, Active Levothyroxine Sodium 50 MCG 1 tablet in the morning on an empty stomach Orally Once a day for 30 day(s) Jan, Active Breo Ellipta 100-25 MCG/INH 1 puff Inhalation Once a day for 90 Active Nystatin 397922 UNIT/GM 1 application to affected ar ea Externally groin Twice a day prn for 30 day(s) May, Active Clotrimazole 1 % 1 application under breasts Externally Twice a day for 14 day(s) May, Active Atorvastatin Calcium [address] Mckeon Orally Once a day for 90 Active Levemir FlexTouch 100 UNIT/ML 46 units Subcutaneous twice daily for 90 day(s) Active Lancets - as directed - DX: E11.65 four times daily for 90 day(s) Active Gabapentin 100 MG 1 capsule Orally tid for 30 Active Singulair 10 mg 1 tab(s) Orally daily for 90 Active Banophen 25 MG 1 tablet as needed Orally every 4 hours as needed for 20 Active Uloric 40 MG TAKE ONE TABLET BY MOUTH EVERY DAY for 90 Active CPAP mask at night Active Blood Glucose Test - 1 strip In Vitro DX: E11.65 four times daily fo r 25 Active Oxygen 2.5 liters n/c nasal cannula at night as needed Active Spironolactone 25 MG 1/2 tablet Orally daily Active PROCEDURES No Information RESULTS No Results REASON FOR VISIT multiple MEDICAL (GENERAL) HISTORY Type Description Date Medical History Hypertension, hypertensive h eart disease - LVEF 85% 04/18, [facility] Medical History Atherosclerosis of [place] ronary artery of [place] heart without angina pectoris, NST normal perfusion 07/2015 - [facility] Medical History LVH, borderline pulmonary hypertension, echo 07/2015 - [facility] Medical History hyperlipidemia, mixed Medical History type II diabetes Medical History sleep apnea - on CPAP, PULMONOLOGY Medical History asthma - PFT at [facility] 02/18, FEV1 = 1.94 Medical History fatty liver - primary biliar y cirrhosis, biju Haskins at [place] 2010 - not a transplant candidate (normal [...] ectasia 10/2016 Surgical History colonoscopy with polypectomy- breanna Haskins 01/07, 11/12, 04/16, 10/16 Surgical History liver biopsy + cirrhosis, [place] Hospitalization History surgery related Hospitalization History syncope 01/22 Goals Section No Information Health Concerns No Information MEDICAL EQUIPMENT No Information MENTAL STATUS No Information FUNCTIONAL STATUS No Information ASSESSMENTS Encounter Date Diagnosis Assessment Notes Treatment Notes Treatm ent Clinical Notes Jun, Hypothyroidism, unspecified type (ICD-10 - E03.9 ) PLAN OF TREATMENT Medication Medication Name Sig Start Date Stop Date Clotrimazole 1 % 1 application under breasts Externally Twice a day for 14 day(s) May, Levothyroxine Sodium 50 MCG 1 tablet in the morning on an empty stomach Orally Once a day for 30 day(s) Jan, Breo Ellipta 100-25 MCG/INH 1 puff Inhalation Once a day for 90 Atorvastatin Calcium [address] Mckeon Orally Once a day for 90 Levemir FlexTouch 100 UNIT/ML 46 units Subcutaneous twice daily for 90 day(s) Singulair 10 mg 1 tab(s) Orally daily for 90 Nystatin 219234 UNIT/GM 1 application to affected ar ea Externally groin Twice a day prn for 30 day(s) May, Next Appt Details Provider Name:Hillary Williamson, 2020-10-02 10:00:00 AM, [address], [place], [address], Insurance Providers Payer Name Payer Address Payer Phone Insured Name Patient Relati onship to Insured Coverage Start Date Coverage End Date [facility] [employer] [facility] [address] [address] [facility] [address] [phone] SHAY JACOME self
--- OUTSIDE RECORDS SUMMARY | 2020-07-26 09:49 | CCD ---
Author Author [facility] Organization [facility] Address Unknown Phone Unavailable Care Team Providers Care Dj Instructor Name Role Phone Hillary Williamson Unavailable PROBLEMS Type Condition ICD9-CM Code [id number] Code Onset Dates Condition S tatus SNOMED Code Notes Problem [place] (obstructive sleep apnea) G47.33 Active 78 089458 Problem Hypertensive heart disease without heart failure I 11.9 Active 78424910 Problem Cirrhosis of liver K74.60 Active 10283459 Problem Senile osteoporosis M81.0 Active 80945355 Problem Cirrhosis of liver without ascites, unsp ecified hepatic cirrhosis type K74.60 Active 78769718 Problem Hepatic cirrhosis, unspecified hepatic cirrhosis type K74.60 Active 33410936 Problem Essential hypertension I10 Active 95576282 Problem DM w/o complication type II E11.9 Active 4405 4006 Problem Other pancytopenia D61.818 Active 287781968 Problem Mixed hyperlipidemia E78.2 Active 342546861 Problem Atherosclerosis of [place] co ronary artery of [place] heart without angina pectoris I25.10 Active 399915104533447 Problem Type 2 diabetes mellitus with hyperglycemia E11.65 Active 98543503 Problem Morbid (severe) obesity due to excess calories E66 .01 Active 334395777 Problem Body mass index (BMI) of 40.0-44.9 in adult Z68.41 Active 002219035 Problem Type 2 diabetes mellitus with other specified complication E11.69 Active 06023439 Problem Obesity, unspecified E66.9 Active 499501332 Problem Psoriasis L40.9 Active 8073087 Problem Constipation, unspecified constipation type K59.00 Active 15159114 Problem Mild intermittent asthma without complication J45. 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, unspecified site M1A.30X0 Active 658935096379207 Problem Gastroesophageal reflux disease without esophagitis K21.9 Active 274678862 Problem Scalp psoriasis L40.9 Active 733639367 Problem Moderate persistent asthma, unspecified whether complicate d J45.40 Active 145569867 Problem Hypothyroidism, unspecified type E03.9 Active 26672495 Problem Right bundle branch block I45.10 Active 655930 01 ALLERGIES Allergen (clinical drug ingredient) Drug/Non Drug Allergy do cumented on EMR Reaction Allergy Type Onset Date Status aspirin paigeelsis Non Drug Allergy Act paulette allopurinol/colchicine pancytopenia Non Drug Allergy Active ENCOUNTERS from 1950 to 2020-06-04 Encounter Location Date Provider Diagnosis [facility] [address] [place] [address] May, Hillary Muna-Tartell Type 2 diabetes mellitus with hyperglyce marisa E11.65 ; Intertrigo L30.4 and Encounter for immunization Z23 IMMUNIZATIONS Vaccine Route Administration Date Status Influenza [...] Notes Total Score: 0 Interpretation: Alcohol Education Christianity: Question Answer Notes Christianity 03 Jew Sexual Hx: Question Answer Notes Had sex [...] REASON FOR REFERRAL No Information VITAL SIGNS Weight 234.8 lbs May, Height 60.25 in May, BMI 45.47 kg/m2 May, Heart Rate 96 /min May, Respiratory Rate 19 /min May, Temperature 97.8 degrees Fahrenheit May, Oximetry 99 May, Blood pressure systolic 140 mm Hg May, Blood pressure diastolic 82 mm Hg May, MEDICATIONS Medication SIG (Take, Route, Frequency, Duration) Notes Start Da te End Date Status Glucometer as directed intravenously twice daily for 99 days Jul, Active Nystatin 926616 UNIT/GM 1 application to affected ar ea Externally to groin area Twice a day, prn itching/rash for 30 Active Pen [place] 31G X 6 MM as directed DX:11.9 four times daily for 90 day(s) Jan, Active Singulair 10 mg 1 tab(s) Orally daily for 90 Active ProAir HFA [...] bid for 30 day(s ) November, Active Uloric 40 MG TAKE ONE TABLET BY MOUTH EVERY DAY for 90 Active Atorvastatin Calcium [address] Mckeon Orally Once a day for 90 Active Lancets - as directed - DX: E11.65 four times daily for 90 day(s) Active Clotrimazole 1 % 1 application under breasts Externally Twice a day for 14 day(s) May, Active Breo Ellipta 100-25 MCG/INH 1 puff Inhalation Once a day for 90 Active Levemir FlexTouch 100 UNIT/ML 46 units Subcutaneous twice daily for 90 day(s) Active Nexium 40 mg 1 capsule Orally daily for 90 Active Gabapentin 100 MG 1 capsule Orally tid for 30 Active Nystatin 451468 UNIT/GM 1 application to affected ar ea Externally groin Twice a day prn for 30 day(s) May, Active Banophen 25 MG 1 tablet as needed Orally every 4 hours as needed for 20 Active Blood Glucose Test - 1 strip In Vitro DX: E11.65 four times daily fo r 25 Active Levothyroxine Sodium 50 MCG 1 tablet in the morning on an empty stomach Orally Once a day for 30 day(s) Jan, Active CPAP mask at night Active Oxygen 2.5 liters n/c nasal cannula at night as needed Active Spironolactone 25 MG 1/2 tablet Orally daily Active PROCEDURES Procedure Date Ordered Result Body Site Immunization: Flublok Quadrivalent (18 years & older) 0.5mL IM (Influenza) 2020-05-22 N/A RESULTS No Results REASON FOR VISIT 3 month MEDICAL (GENERAL) HISTORY Type Description Date Medical History Hypertension, hypertensive h eart disease - LVEF 85% 04/18, [facility] Medical History Atherosclerosis of [place] co ronary artery of [place] heart without angina pectoris, NST normal perfusion 07/2015 - [facility] Medical History LVH, borderline pulmonary hypertension, echo 07/2015 - [facility] Medical History hyperlipidemia, mixed Medical History type II diabetes Medical History sleep apnea - on CPAP, PULMONOLOGY Medical History [facility] - [facility], FEV1 = 1.94 Medical History fatty liver - primary biliar y cirrhosis, Jozefbiju pizano at [place] 2010 - not a transplant candidate (normal [...] 10/2016 Surgical History colonoscopy with polypectomy- Jozef, adenomatous 01/07, 11/12, 04/16, 10/16 Surgical History liver biopsy + cirrhosis, [place] Hospitalization History surgery related Hospitalization History syncope 01/22 Goals Section No Information Health Concerns No Information MEDICAL EQUIPMENT No Information MENTAL STATUS No Information FUNCTIONAL STATUS No Information ASSESSMENTS Encounter Date Diagnosis Assessment Notes Treatment Notes Treatm ent Clinical Notes May, Type 2 diabetes mellitus with hyperglycemia (ICD -10 - E11.65) Encouraged her to get an eye exam; she states that she will in the spring. Increased Levemir for better control. Encouraged exercise as tolerated. May, Intertrigo (ICD-10 - L30.4) May, Encounter for immunization (ICD-10 - Z23) Immunizations reviewed. Any questions were answered. Patient agreed to immunization, and received vaccine in office today. PLAN OF TREATMENT Medication Medication Name Sig Start Date Stop Date Nystatin 890409 UNIT/GM 1 application to affected ar ea Externally groin Twice a day prn for 30 day(s) May, Clotrimazole 1 % 1 application under breasts Externally Twice a day for 14 day(s) May, Levemir FlexTouch 100 UNIT/ML 46 units Subcutaneous twice daily for 90 day(s) Treatment Notes Assessment Notes Clinical Notes Type 2 diabetes mellitus with hyperglycemia Encouraged her to get an eye exam; she states that she will in the spring. Increased Levemir for better control. Encouraged exercise as tolerated. Encounter for immunization Immunizations reviewed. Any questions were answered. Patient agreed to immunization, and received vaccine in office today. Future Test Test Name Order Date HEMOGLOBIN A1c [id number] Next Appt Details Reason:DM Provider Name:Hillary Williamson, 2020-10-02 10:00:00 AM, [address], [place], [address], Follow Up:mid-SeptemberDM Insurance Providers Payer Name Payer Address Payer Phone Insured Name Patient Relati onship to Insured Coverage Start Date Coverage End Date [facility] [address] [address] [facility] [address] SHAY JACOME self
--- OUTSIDE RECORDS SUMMARY | 2020-07-26 09:49 | CCD ---
Author Author [facility] Organization [facility] Address Unknown Phone Unavailable Care Team Providers Care Construction Supervisor/Carpenter Name Role Phone Hillary Williamson Unavailable PROBLEMS Type Condition ICD9-CM Code [id number] Code Onset Dates Condition S tatus SNOMED Code Notes Problem [place] (obstructive sleep apnea) G47.33 Active 78 809425 Problem Hypertensive heart disease without heart failure I 11.9 Active 11249869 Problem Cirrhosis of liver K74.60 Active 75180871 Problem Senile osteoporosis M81.0 Active 23115935 Problem Cirrhosis of liver without ascites, unsp ecified hepatic cirrhosis type K74.60 Active 77452870 Problem Hepatic cirrhosis, unspecified hepatic cirrhosis type K74.60 Active 46049037 Problem Essential hypertension I10 Active 84329044 Problem DM w/o complication type II E11.9 Active 4405 4006 Problem Other pancytopenia D61.818 Active 987232670 Problem Mixed hyperlipidemia E78.2 Active 077811072 Problem Atherosclerosis of [place] co ronary artery of [place] heart without angina pectoris I25.10 Active 160045769038065 Problem Type 2 diabetes mellitus with hyperglycemia E11.65 Active 20256145 Problem Morbid (severe) obesity due to excess calories E66 .01 Active 208923187 Problem Body mass index (BMI) of 40.0-44.9 in adult Z68.41 Active 439578475 Problem Type 2 diabetes mellitus with other specified complication E11.69 Active 58912078 Problem Obesity, unspecified E66.9 Active 613153179 Problem Psoriasis L40.9 Active 6218426 Problem Constipation, unspecified constipation type K59.00 Active 03995367 Problem Mild intermittent asthma without complication J45. 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, unspecified site M1A.30X0 Active 503003537796260 Problem Gastroesophageal reflux disease without esophagitis K21.9 Active 763488587 Problem Scalp psoriasis L40.9 Active 714013594 Problem Moderate persistent asthma, unspecified whether complicate d J45.40 Active 212898226 Problem Hypothyroidism, unspecified type E03.9 Active 23535588 Problem Right bundle branch block I45.10 Active 117160 01 ALLERGIES Allergen (clinical drug ingredient) Drug/Non Drug Allergy do cumented on EMR Reaction Allergy Type Onset Date Status aspirin jabarillhimabrands Non Drug Allergy Act paulette allopurinol/colchicine pancytopenia Non Drug Allergy Active ENCOUNTERS from 1950 to 2020-05-11 Encounter Location Date Provider Diagnosis [facility] [address] [place] [address] May, Hillary McdonoughTaremmie IMMUNIZATIONS Vaccine Route Administration Date Status Influenza [...] Intramuscular Mar 26, 2012 Ad ministered Influenza (6mo & up) Fluzone IM Intramuscular May 11, 2010 Ad ministered SOCIAL HISTORY Sex Assigned At : Social History Observation Description Sex Assigned At Unknown Education: Question Answer Notes Level of Education: Not finished High School has GED Audit Question Answer Notes Total Score: 0 Interpretation: Alcohol Education Temple: Question Answer Notes Temple 03 Anabaptist Sexual Hx: Question Answer Notes Had sex [...] MEDICATIONS Medication SIG (Take, Route, Frequency, Duration) Start Date En d Date Status Nitrostat 0.[address] 1 TABLET UNDER THE TON NANCY EVERY 5 MINUTES UP TO 3 DOSES, FOR CHEST PAIN. IF CHEST PAIN PERSISTS CALL 911 Sublingual for 30 day(s) Active Levothyroxine Sodium 50 MCG 1 tablet in the morning on an empty stomach Orally Once a day for 30 day(s) Jan, Active Gabapentin 100 MG 1 capsule Orally tid for 30 Active Singulair 10 mg 1 tab(s) Orally daily for 90 Active ProAir HFA 108 (90 Base) MCG/ACT 2 puffs Inhalation ev kathrine 4 hrs if needed for 50 Active Xifaxan 550 MG 1 tablet Orally Twice a day for 90 Active HydrOXYzine HCl 25 MG 1 tablet as needed Orally bid for 30 day(s ) November, Active Atorvastatin Calcium [address] Mckeon Orally Once a day for 90 Active Banophen 25 MG 1 tablet as needed Orally every 4 hours as needed fo r 20 Active Benadryl Extra Strength 2-0.1 % 1 application as neede d Externally Three times a day as needed for 14 days Jan, Active Oxygen 2.5 liters n/c nasal cannula at night as needed Active Nexium 40 mg 1 capsule Orally daily for 90 Active Blood Glucose Test - 1 strip In Vitro DX: E11.65 four times daily for 25 Active CPAP mask at night Active Nystatin 807580 UNIT/GM 1 application to affected ar ea Externally to groin area Twice a day, prn itching/rash for 30 Act paulette Levemir FlexTouch 100 UNIT/ML 42 units Subcutaneous twice daily for 30 days Active Breo Ellipta 100-25 MCG/INH 1 puff Inhalation Once a day for 90 Active Uloric 40 MG TAKE ONE TABLET BY MOUTH EVERY DAY for 90 Active Glucometer as directed intravenously twice daily for 99 days 12 an2016 Active Lancets - as directed - DX: E11.65 four times daily for 90 day(s ) Active NovoLog Flexpen 100 UNIT/ML as directed, mdd 42 units Subcut aneous tid for 106 Active Pen [place] 31G X 6 MM as directed DX:11.9 four times daily for 90 day(s) Jan, Active Spironolactone 25 MG 1/2 tablet Orally daily Active Nystatin 063718 UNIT/GM 1 application to affected ar ea Externally groin Twice a day prn for 30 day(s) May, Active PROCEDURES No Information RESULTS No Results REASON FOR VISIT pen needles MEDICAL (GENERAL) HISTORY Type Description Date Medical History Hypertension, hypertensive h eart disease - LVEF 85% 04/18, [facility] Medical History Atherosclerosis of [place] ronary artery [place] heart without angina pectoris, NST normal perfusion 07/2015 - [facility] Medical History LVH, borderline pulmonary hypertension, echo 07/2015 - [facility] Medical History hyperlipidemia, mixed Medical History type II diabetes Medical History sleep apnea - on CPAP, PULMONOLOGY Medical History asthma - PFT at [facility] 02/18, FEV1 = 1.94 Medical History fatty liver - primary biliar y cirrhosis, biju aHskins at [place] 2010 - not a transplant candidate (normal [...] 1973 Surgical History most recent EGD - [facility], with gastric (not esophageal) varices and gastric antral vascular ectasia 10/2016 Surgical History colonoscopy with polypectomy- [facility], adenomatous 01/07, 11/12, 04/16, 10/16 Surgical History liver biopsy + cirrhosis, [place] Hospitalization History surgery related Hospitalization History syncope 01/22 Goals Section No Information Health Concerns No Information MEDICAL EQUIPMENT No Information MENTAL STATUS No Information FUNCTIONAL STATUS No Information ASSESSMENTS No Information PLAN OF TREATMENT Medication Medication Name Sig Start Date Stop Date Pen [place] 31G X 6 MM as directed DX:11.9 four times daily for 90 day(s) Jan, Next Appt Details Provider Name:Hillary Williamson, 2020-05-22 09:30:00 AM, [address], [place], [address], Insurance Providers Payer Name Payer Address Payer Phone Insured Name Patient Relati onship to Insured Coverage Start Date Coverage End Date [facility] [address] [address] [facility] [phone] SHAY JACOME self
--- OUTSIDE RECORDS SUMMARY | 2020-07-26 09:49 | CCD ---
Author Author [facility] Organization [facility] Address Unknown Phone Unavailable Care Team Providers Care Video Game Repair Technician Name Role Phone Hillary Williamson Unavailable PROBLEMS Type Condition ICD9-CM Code RZV90-GF Code Onset Dates Condition S tatus SNOMED Code Notes Problem MONROE (obstructive sleep apnea) G47.33 Active 78 564095 Problem Hypertensive heart disease without heart failure I 11.9 Active 31875634 Problem Cirrhosis of liver K74.60 Active 14030870 Problem Senile osteoporosis M81.0 Active 75295852 Problem Cirrhosis of liver without ascites, unsp ecified hepatic cirrhosis type K74.60 Active 17299455 Problem Hepatic cirrhosis, unspecified hepatic cirrhosis type K74.60 Active 32184536 Problem Essential hypertension I10 Active 04611239 Problem DM w/o complication type II E11.9 Active 4405 4006 Problem Other pancytopenia D61.818 Active 857468370 Problem Mixed hyperlipidemia E78.2 Active 106094830 Problem Atherosclerosis of [place] co ronary artery of [place] heart without angina pectoris I25.10 Active 070971295336796 Problem Type 2 diabetes mellitus with hyperglycemia E11.65 Active 49213665 Problem Morbid (severe) obesity due to excess calories E66 .01 Active 837249972 Problem Body mass index (BMI) of 40.0-44.9 in adult Z68.41 Active 536882025 Problem Type 2 diabetes mellitus with other specified complication E11.69 Active 13172682 Problem Obesity, unspecified E66.9 Active 630921316 Problem Psoriasis L40.9 Active 3391959 Problem Constipation, unspecified constipation type K59.00 Active 29360852 Problem Mild intermittent asthma without complication J45. 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, unspecified site M1A.30X0 Active 407480364098231 Problem Gastroesophageal reflux disease without esophagitis K21.9 Active 941870967 Problem Scalp psoriasis L40.9 Active 642103153 Problem Moderate persistent asthma, unspecified whether complicate d J45.40 Active 655642482 Problem Hypothyroidism, unspecified type E03.9 Active 00564579 Problem Right bundle branch block I45.10 Active 288944 01 ALLERGIES Allergen (clinical drug ingredient) Drug/Non Drug Allergy do cumented on EMR Reaction Allergy Type Onset Date Status aspirin jabarillhimabrands Non Drug Allergy Act paulette allopurinol/colchicine pancytopenia Non Drug Allergy Active ENCOUNTERS from 1950 to 2020-06-08 Encounter Location Date Provider Diagnosis [facility] [address] [place] [address] May, Hillary Muna-Tartell IMMUNIZATIONS Vaccine Route Administration Date [...] Notes Total Score: 0 Interpretation: Alcohol Education Anglican: Question Answer Notes Anglican 03 Evangelical Sexual Hx: Question Answer Notes Had sex [...] Notes Start Da te End Date Status Xifaxan 550 MG 1 tablet Orally Twice a day for 90 Active Nystatin 863912 UNIT/GM 1 application to affected ar ea Externally to groin area Twice a day, prn itching/rash for 30 Active Glucometer as directed intravenously twice daily for 99 days Jul, Active Singulair 10 mg 1 tab(s) Orally daily for 90 Active Nitrostat 0.[address] 1 TABLET UNDER THE TON NANCY EVERY 5 MINUTES UP TO 3 DOSES, FOR CHEST PAIN. IF CHEST PAIN PERSISTS CALL 911 Sublingual for 30 day(s) Active ProAir HFA 108 (90 Base) MCG/ACT 2 puffs Inhalation ev kathrine 4 hrs if needed for 50 Active Benadryl Extra Strength 2-0.1 % 1 application as neede d Externally Three times a day as needed for 14 days Jan, Not-Ta mary anne Levemir FlexTouch 100 UNIT/ML 46 units Subcutaneous twice daily for 90 day(s) Active NovoLog Flexpen 100 UNIT/ML as [...] Once a day for 90 Active Nystatin 151740 UNIT/GM 1 application to affected ar ea Externally groin Twice a day prn for 30 day(s) May, Active Nexium 40 mg 1 capsule Orally daily for 90 Active Gabapentin 100 MG 1 capsule Orally tid for 30 Active Pen [place] 31G X 6 MM as directed DX:11.9 four times daily for 90 day(s) Jan, Active Banophen 25 MG 1 tablet as [...] Information RESULTS No Results REASON FOR VISIT nystatin MEDICAL (GENERAL) HISTORY Type Description Date Medical History Hypertension, hypertensive h eart disease - LVEF 85% 04/18, [facility] Medical History Atherosclerosis of [place] co ronary artery of [place] heart without angina pectoris, NST normal perfusion 07/2015 - [facility] Medical History LVH, borderline pulmonary hypertension, echo 07/2015 - [facility] Medical History hyperlipidemia, mixed Medical History type II diabetes Medical History sleep apnea - on CPAP, PULMONOLOGY Medical History asthma - [facility], FEV1 = 1.94 Medical History fatty liver - primary biliar y cirrhosis, biju [facility] at [place] 2010 - not a transplant candidate (normal [...] 10/16 Surgical History liver biopsy + cirrhosis, [place] Hospitalization History surgery related Hospitalization History syncope 01/22 Goals Section No Information Health Concerns No Information MEDICAL EQUIPMENT No Information MENTAL STATUS No Information FUNCTIONAL STATUS No Information ASSESSMENTS No Information PLAN OF TREATMENT Medication Medication Name Sig Start Date Stop Date Levemir FlexTouch 100 UNIT/ML 46 units Subcutaneous twice daily for 90 day(s) Clotrimazole 1 % 1 application under breasts Externally Twice a day for 14 day(s) May, Nystatin 818803 UNIT/GM 1 application to affected ar ea Externally groin Twice a day prn for 30 day(s) May, Next Appt Details Provider Name:Hillary Williamson, 2020-10-02 10:00:00 AM, [address], [place], [address], Insurance Providers Payer Name Payer Address Payer Phone Insured Name Patient Relati onship to Insured Coverage Start Date Coverage End Date [facility] [employer] [facility] [address] [address] [facility] [place] [phone] SHAY JACOME self
--- OUTSIDE RECORDS SUMMARY | 2020-07-26 09:49 | CCD ---
Author Author [facility] Organization [facility] Address Unknown Phone Unavailable Care Team Providers Care Seam Checker Name Role Phone Hillary Williamson Unavailable PROBLEMS Type Condition ICD9-CM Code WYM51-GS Code Onset Dates Condition S tatus SNOMED Code Notes Problem MONROE (obstructive sleep apnea) G47.33 Active 78 861898 Problem Hypertensive heart disease without heart failure I 11.9 Active 71862180 Problem Cirrhosis of liver K74.60 Active 34299812 Problem Senile osteoporosis M81.0 Active 37049518 Problem Cirrhosis of liver without ascites, unsp ecified hepatic cirrhosis type K74.60 Active 81270150 Problem Hepatic cirrhosis, unspecified hepatic cirrhosis type K74.60 Active 50453399 Problem Essential hypertension I10 Active 70682412 Problem DM w/o complication type II E11.9 Active 4405 4006 Problem Other pancytopenia D61.818 Active 581745814 Problem Mixed hyperlipidemia E78.2 Active 362122412 Problem Atherosclerosis of [place] co ronary artery of [place] heart without angina pectoris I25.10 Active 363999659976802 Problem Type 2 diabetes mellitus with hyperglycemia E11.65 Active 75833836 Problem Morbid (severe) obesity due to excess calories E66 .01 Active 868355660 Problem Body mass index (BMI) of 40.0-44.9 in adult Z68.41 Active 772559072 Problem Type 2 diabetes mellitus with other specified complication E11.69 Active 67431196 Problem Obesity, unspecified E66.9 Active 328843195 Problem Psoriasis L40.9 Active 0279129 Problem Constipation, unspecified constipation type K59.00 Active 79182392 Problem Mild intermittent asthma without complication J45. 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, unspecified site M1A.30X0 Active 704499203327944 Problem Gastroesophageal reflux disease without esophagitis K21.9 Active 488525546 Problem Scalp psoriasis L40.9 Active 389429118 Problem Moderate persistent asthma, unspecified whether complicate d J45.40 Active 317568006 Problem Hypothyroidism, unspecified type E03.9 Active 66647126 Problem Right bundle branch block I45.10 Active 600483 01 ALLERGIES Allergen (clinical drug ingredient) Drug/Non Drug Allergy do cumented on EMR Reaction Allergy Type Onset Date Status aspirin paigebrands Non Drug Allergy Act paulette allopurinol/colchicine pancytopenia Non Drug Allergy Active ENCOUNTERS from 1950 to 2020-05-14 Encounter Location Date Provider Diagnosis [facility] [address] [place] [address] Apr, Hillary Muna-Tartell Injury of left knee, initial encounter S 89.92XA IMMUNIZATIONS Vaccine Route Administration Date Status Influenza [...] Notes Total Score: 0 Interpretation: Alcohol Education Mormon: Question Answer Notes Mormon 03 Congregational Sexual Hx: Question Answer Notes Had sex [...] FOR REFERRAL No Information VITAL SIGNS Weight 232.6 lbs Apr, Height 60.25 in Apr, BMI 45.05 kg/m2 Apr, Heart Rate 102 /min Apr, Respiratory Rate 20 /min Apr, Temperature 98 degrees Fahrenheit Apr, Oximetry 99 Apr, Blood pressure systolic 120 mm Hg Apr, Blood pressure diastolic 72 mm Hg Apr, MEDICATIONS Medication SIG (Take, Route, Frequency, Duration) [...] Active CPAP mask at night Active Nystatin 733478 UNIT/GM 1 application to affected ar ea [...] directed intravenously twice daily for 99 days 2016 Active Lancets - as directed - DX: E11.65 four times daily for 90 day(s ) Active NovoLog Flexpen 100 UNIT/ML as directed, mdd 42 units Subcut aneous tid for 106 Active Pen [place] 31G X 6 MM as directed DX:11.9 four times daily for 90 day(s) Jan, Active Spironolactone 25 MG 1/2 tablet Orally daily Active Nystatin 437075 UNIT/GM 1 application to affected ar ea Externally groin Twice a day prn for 30 day(s) May, Active PROCEDURES No Information RESULTS No Results REASON FOR VISIT Pt slipped in tops and hurt her Left knee injury MEDICAL (GENERAL) HISTORY Type Description Date Medical History Hypertension, hypertensive h eart disease - LVEF 85% 04/18, [facility] Medical History Atherosclerosis of [place] co ronary artery of [place] heart without angina pectoris, NST normal perfusion 07/2015 - [facility] Medical History LVH, borderline pulmonary hypertension, echo 07/2015 - [facility] Medical History hyperlipidemia, mixed Medical History type II diabetes Medical History sleep apnea - on CPAP, PULMONOLOGY Medical History asthma - PFT at [facility] 02/18, FEV1 = 1.94 Medical History fatty liver - primary biliar y cirrhosis, biju [facility] at [place] 2010 - not a transplant candidate (normal [...] 10/16 Surgical History liver biopsy + cirrhosis, [place] Hospitalization History surgery related Hospitalization History syncope 01/22 Goals Section No Information Health Concerns No Information MEDICAL EQUIPMENT No Information MENTAL STATUS No Information FUNCTIONAL STATUS No Information ASSESSMENTS Encounter Date Diagnosis Notes Apr, Injury of left knee, initial encounter ( ICD-10 - S89.92XA) PLAN OF TREATMENT Medication Medication Name Sig Start Date Stop Date Pen [place] 31G X 6 MM as directed DX:11.9 four times daily for 90 day(s) Jan, Treatment Notes Assessment Notes Clinical Notes Injury of left knee, initial encounter S he does have an effusion, but no erythema on exam. Medial joint is tender, and though valgus stress and anterior drawer test are both quite uncomfortable, I'm not perceiving excess motion or instability. She did have some trouble not guarding, though, as this was painful, and that can skew the exam. I'll get an X ray. If that is normal, I suspect a strained ligament. I advised a knee brace, icing, and rest. If not improved in a week, will refer to ortho. Future Test Test Name Order Date ADM KNEE COMPLETE [id number] Next Appt Details Provider Name:Hillary Williamson, 2020-05-22 09:30:00 AM, [address], [place], [address], Insurance Providers Payer Name Payer Address Payer Phone Insured Name Patient Relati onship to Insured Coverage Start Date Coverage End Date [facility] [employer] [facility] [address] [address] [facility] [address] SHAY JACOME self
--- OUTSIDE RECORDS SUMMARY | 2020-07-26 09:49 | CCD ---
Author Author [facility] Organization [facility] Address Unknown Phone Unavailable Care Team Providers Care Railcar Switchman Name Role Phone Hillary Williamson Unavailable PROBLEMS Type Condition ICD9-CM Code VVM73-VR Code Onset Dates Condition S tatus SNOMED Code Notes Problem MONROE (obstructive sleep apnea) G47.33 Active 78 706054 Problem Hypertensive heart disease without heart failure I 11.9 Active 90367266 Problem Cirrhosis of liver K74.60 Active 93775013 Problem Senile osteoporosis M81.0 Active 08825850 Problem Cirrhosis of liver without ascites, unsp ecified hepatic cirrhosis type K74.60 Active 27848349 Problem Hepatic cirrhosis, unspecified hepatic cirrhosis type K74.60 Active 21252878 Problem Essential hypertension I10 Active 91931243 Problem DM w/o complication type II E11.9 Active 4405 4006 Problem Other pancytopenia D61.818 Active 459086284 Problem Mixed hyperlipidemia E78.2 Active 790638928 Problem Atherosclerosis of [place] co ronary artery of [place] heart without angina pectoris I25.10 Active 660347641887338 Problem Type 2 diabetes mellitus with hyperglycemia E11.65 Active 36232555 Problem Morbid (severe) obesity due to excess calories E66 .01 Active 362644478 Problem Body mass index (BMI) of 40.0-44.9 in adult Z68.41 Active 432040184 Problem Type 2 diabetes mellitus with other specified complication E11.69 Active 30331880 Problem Obesity, unspecified E66.9 Active 811057962 Problem Psoriasis L40.9 Active 4705404 Problem Constipation, unspecified constipation type K59.00 Active 08587442 Problem Mild intermittent asthma without complication J45. 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, unspecified site M1A.30X0 Active 683830317617956 Problem Gastroesophageal reflux disease without esophagitis K21.9 Active 686240306 Problem Scalp psoriasis L40.9 Active 094449894 Problem Moderate persistent asthma, unspecified whether complicate d J45.40 Active 287339005 Problem Hypothyroidism, unspecified type E03.9 Active 24518855 Problem Right bundle branch block I45.10 Active 482421 01 ALLERGIES Allergen (clinical drug ingredient) Drug/Non Drug Allergy do cumented on EMR Reaction Allergy Type Onset Date Status aspirin paigebrands Non Drug Allergy Act paulette allopurinol/colchicine pancytopenia Non Drug Allergy Active ENCOUNTERS from 1950 to 2020-06-15 Encounter Location Date Provider Diagnosis [facility] [address] [place] [address] Jun, Hillary Muna-Tartell IMMUNIZATIONS Vaccine Route Administration Date Status Influenza (High Dose 65 & up) IM Intramuscular Apr 16, 2017 A dministered Influenza (High Dose 65 & up) IM Intramuscular Apr 19, 2016 A dministered TDAP IM Intramuscular October 31, 2015 Administered Influenza (High Dose 65 & up) IM Intramuscular May 09, 2015 A dministered Influenza (High Dose 65 & up) IM Intramuscular May 17, 2014 A dministered Pneumococcal 0.5mL (Prevnar 13) IM Intramuscular November [...] Notes Total Score: 0 Interpretation: Alcohol Education Gnosticism: Question Answer Notes Gnosticism 03 Tenriism Sexual Hx: Question Answer Notes Had sex [...] Start Da te End Date Status Pen [place] 31G X 6 MM as directed DX:11.9 four times daily for 90 day(s) Jan, Active Nystatin 559405 UNIT/GM 1 application to affected ar ea [...] 4 hrs if needed for 50 Active NovoLog Flexpen 100 UNIT/ML as directed, mdd 42 units Subcut aneous tid for 106 Active HydrOXYzine HCl 25 MG 1 tablet as needed Orally bid for 30 day(s ) November, Active Levothyroxine Sodium 50 MCG 1 tablet in the morning on an empty stomach Orally Once a day for 30 day(s) Jan, Active Atorvastatin Calcium [address] Mckeon Orally Once a day for 90 Active Levemir FlexTouch 100 UNIT/ML 46 units Subcutaneous twice daily for 90 day(s) Active Clotrimazole 1 % 1 application under breasts Externally Twice a day for 14 day(s) May, Active Nexium 40 mg 1 capsule Orally daily for 90 Active Nitrostat 0.[address] 1 TABLET UNDER THE TON NANCY EVERY 5 MINUTES UP TO 3 DOSES, FOR CHEST PAIN. IF CHEST PAIN PERSISTS CALL 911 Sublingual for 30 day(s) Active Nystatin 809188 UNIT/GM 1 application to affected ar ea Externally groin Twice a day prn for 30 day(s) May, Active Gabapentin 100 MG 1 capsule Orally tid for 30 Active Breo Ellipta 100-25 MCG/INH 1 puff Inhalation Once a day for 90 Active Banophen [...] Information RESULTS No Results REASON FOR VISIT nexium DR 40MG capsule MEDICAL (GENERAL) HISTORY Type Description Date Medical History Hypertension, hypertensive h eart disease - LVEF 85% 04/18, [facility] Medical History Atherosclerosis of [place] co ronary artery of [place] heart without angina pectoris, NST normal perfusion 07/2015 - [facility] Medical History LVH, borderline pulmonary hypertension, echo 07/2015 - [facility] Medical History hyperlipidemia, mixed Medical History type II diabetes Medical History sleep apnea - on CPAP, PULMONOLOGY Medical History asthma - [facility], FEV1 = 1.94 Medical History fatty liver - primary biliar y cirrhosis, biju [facility] at [place] 2010 - not a transplant candidate (normal [...] 10/16 Surgical History liver biopsy + cirrhosis, [place] Hospitalization History surgery related Hospitalization History syncope [...] Once a day for 30 day(s) Jan, Atorvastatin Calcium [address] Mckeon Orally Once a day for 90 Nexium 40 mg 1 capsule Orally daily for 90 Singulair 10 mg 1 tab(s) Orally daily for 90 Breo Ellipta 100-25 MCG/INH 1 puff Inhalation Once a day for 90 Nystatin 111713 UNIT/GM 1 application to affected ar ea Externally groin Twice a day prn for 30 day(s) May, Levemir FlexTouch 100 UNIT/ML 46 units Subcutaneous twice daily for 90 day(s) Next Appt Details Provider Name:Hillary Williamson, 2020-10-02 10:00:00 AM, [address], [place], [address], Insurance Providers Payer Name Payer Address Payer Phone Insured Name Patient Relati onship to Insured Coverage Start Date Coverage End Date [facility] [address] [address] [facility] [address] [phone] SHAY JACOME self
--- OUTSIDE RECORDS SUMMARY | 2020-07-26 09:49 | CCD ---
Author Author [facility] Organization [facility] Address Unknown Phone Unavailable Care Team Providers Care Chiropractic Assistant Name Role Phone Hillary Williamson Unavailable PROBLEMS Type Condition ICD9-CM Code FTR53-EI Code Onset Dates Condition S tatus SNOMED Code Notes Problem MONROE (obstructive sleep apnea) G47.33 Active 78 786134 Problem Hypertensive heart disease without heart failure I 11.9 Active 46123661 Problem Cirrhosis of liver K74.60 Active 17160951 Problem Senile osteoporosis M81.0 Active 31875126 Problem Cirrhosis of liver without ascites, unsp ecified hepatic cirrhosis type K74.60 Active 15945638 Problem Hepatic cirrhosis, unspecified hepatic cirrhosis type K74.60 Active 47004175 Problem Essential hypertension I10 Active 42802414 Problem DM w/o complication type II E11.9 Active 4405 4006 Problem Other pancytopenia D61.818 Active 242984076 Problem Mixed hyperlipidemia E78.2 Active 372780566 Problem Atherosclerosis of [place] co ronary artery of [place] heart without angina pectoris I25.10 Active 589253813974488 Problem Type 2 diabetes mellitus with hyperglycemia E11.65 Active 85517565 Problem Morbid (severe) obesity due to excess calories E66 .01 Active 691720686 Problem Body mass index (BMI) of 40.0-44.9 in adult Z68.41 Active 473499492 Problem Type 2 diabetes mellitus with other specified complication E11.69 Active 62007525 Problem Obesity, unspecified E66.9 Active 656576351 Problem Psoriasis L40.9 Active 6399576 Problem Constipation, unspecified constipation type K59.00 Active 55979766 Problem Mild intermittent asthma without complication J45. 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, unspecified site M1A.30X0 Active 739752476697208 Problem Gastroesophageal reflux disease without esophagitis K21.9 Active 614354369 Problem Scalp psoriasis L40.9 Active 126426857 Problem Moderate persistent asthma, unspecified whether complicate d J45.40 Active 431223823 Problem Hypothyroidism, unspecified type E03.9 Active 14142082 Problem Right bundle branch block I45.10 Active 021593 01 ALLERGIES Allergen (clinical drug ingredient) Drug/Non Drug Allergy do cumented on EMR Reaction Allergy Type Onset Date Status aspirin jabarillhimabrands Non Drug Allergy Act paulette allopurinol/colchicine pancytopenia Non Drug Allergy Active ENCOUNTERS from 1950 to 2020-05-30 Encounter Location Date Provider Diagnosis [facility] [address] [place] [address] May, Hillary McdonoughTaremmie IMMUNIZATIONS Vaccine Route Administration [...] Education Anglican: Question Answer Notes Anglican 03 Samaritan Sexual Hx: Question Answer Notes Had sex [...] daily for 99 days Jul, Active Nystatin 319604 UNIT/GM 1 application to affected ar ea Externally to groin area Twice a day, prn itching/rash for 30 Active Pen [place] 31G X 6 MM as directed DX:11.9 [...] capsule Orally tid for 30 Active Nystatin 246434 UNIT/GM 1 application to affected ar ea [...] RESULTS No Results REASON FOR VISIT nystatin 100,000 units/GM iont MEDICAL (GENERAL) HISTORY Type Description Date Medical History Hypertension, hypertensive h eart disease - LVEF 85% 04/18, [facility] Medical History Atherosclerosis of [place] co ronary artery of [place] heart without angina pectoris, NST normal perfusion 07/2015 - [facility] Medical History LVH, borderline pulmonary hypertension, echo 07/2015 - [facility] Medical History hyperlipidemia, mixed Medical History type II diabetes Medical History sleep apnea - on CPAP, PULMONOLOGY Medical History asthma - PFT at [facility] 02/18, FEV1 = 1.94 Medical History fatty liver - primary biliar y cirrhosis, biju [facility] at [place] 2010 - not a transplant candidate (normal [...] 10/16 Surgical History liver biopsy + cirrhosis, [place] Hospitalization History surgery related Hospitalization History syncope 01/22 Goals Section No Information Health Concerns No Information MEDICAL EQUIPMENT No Information MENTAL STATUS No Information FUNCTIONAL STATUS No Information ASSESSMENTS No Information PLAN OF TREATMENT Medication Medication Name Sig Start Date Stop Date Nystatin 382258 UNIT/GM 1 application to affected ar ea Externally groin Twice a day prn for 30 day(s) May, Clotrimazole 1 % 1 application under breasts Externally Twice a day for 14 day(s) May, Levemir FlexTouch 100 UNIT/ML 46 units Subcutaneous twice daily for 90 day(s) Next Appt Details Provider Name:Hillary Williamson, 2020-10-02 10:00:00 AM, [address], [place], [address], Insurance Providers Payer Name Payer Address Payer Phone Insured Name Patient Relati onship to Insured Coverage Start Date Coverage End Date [facility] [address] [address] [facility] [phone] SHAY JACOME self
--- OUTSIDE RECORDS SUMMARY | 2020-07-26 09:49 | CCD ---
Author Author [facility] Organization [facility] Address Unknown Phone Unavailable Care Team Providers Care Associate School Psychologist Name Role Phone Hillary Williamson Unavailable PROBLEMS Type Condition ICD9-CM Code [id number] Code Onset Dates Condition S tatus SNOMED Code Notes Problem MONROE (obstructive sleep apnea) G47.33 Active 78 445259 Problem Hypertensive heart disease without heart failure I 11.9 Active 01483593 Problem Cirrhosis of liver K74.60 Active 41037493 Problem Senile osteoporosis M81.0 Active 23269912 Problem Cirrhosis of liver without ascites, unsp ecified hepatic cirrhosis type K74.60 Active 34241623 Problem Hepatic cirrhosis, unspecified hepatic cirrhosis type K74.60 Active 00469255 Problem Essential hypertension I10 Active 34767863 Problem DM w/o complication type II E11.9 Active 4405 4006 Problem Other pancytopenia D61.818 Active 205087348 Problem Mixed hyperlipidemia E78.2 Active 301070015 Problem Atherosclerosis of [place] ronary artery of [place] heart without angina pectoris I25.10 Active 116776959415002 Problem Type 2 diabetes mellitus with hyperglycemia E11.65 Active 56184659 Problem Morbid (severe) obesity due to excess calories E66 .01 Active 768799749 Problem Body mass index (BMI) of 40.0-44.9 in adult Z68.41 Active 265473502 Problem Type 2 diabetes mellitus with other specified complication E11.69 Active 62046207 Problem Obesity, unspecified E66.9 Active 535768894 Problem Psoriasis L40.9 Active 0920614 Problem Constipation, unspecified constipation type K59.00 Active 73234963 Problem Mild intermittent asthma without complication J45. 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 Active 778930806 Problem Moderate persistent asthma, unspecified whether complicate d J45.40 Active 640412368 Problem Hypothyroidism, unspecified type E03.9 Active 29187543 Problem Right bundle branch block I45.10 Active 423155 01 ALLERGIES Allergen (clinical drug ingredient) Drug/Non Drug Allergy do cumented on EMR Reaction Allergy Type Onset Date Status aspirin devanvickyllhimabrands Non Drug Allergy Act paulette allopurinol/colchicine pancytopenia Non Drug Allergy Active ENCOUNTERS from 1950 to 2020-06-18 Encounter Location Date Provider Diagnosis [address] [address] Jun, Hillary Williamson IMMUNIZATIONS Vaccine Route Administration Date Status Influenza [...] Notes Total Score: 0 Interpretation: Alcohol Education Roman Catholic: Question Answer Notes [employer] Catholic 03 [employer] Sexual Hx: Question Answer Notes Had sex [...] Start Da te End Date Status Pen [place] 31G X 6 MM as directed DX:11.9 four times daily for 90 day(s) Jan, Active Nystatin 843324 UNIT/GM 1 application to affected ar ea [...] 911 Sublingual for 30 day(s) Active Nystatin 639229 UNIT/GM 1 application to affected ar ea [...] Information RESULTS No Results REASON FOR VISIT uloric MEDICAL (GENERAL) HISTORY Type Description Date Medical History Hypertension, hypertensive h eart disease - LVEF 85% 04/18, [facility] Medical History Atherosclerosis of [place] ronary artery of [place] heart without angina pectoris, NST normal perfusion 07/2015 - [facility] Medical History LVH, borderline pulmonary hypertension, echo 07/2015 - [facility] Medical History hyperlipidemia, mixed Medical History type II diabetes Medical History sleep apnea - on CPAP, PULMONOLOGY Medical History asthma - PFT [facility] 02[facility], FEV1 = 1.94 Medical History fatty liver - primary biliar y cirrhosis, [facility] at [facility] 2010 - not a transplant candidate (normal [...] 10/16 Surgical History liver biopsy + cirrhosis, [facility] Hospitalization History surgery related Hospitalization History syncope [...] a day for 14 day(s) May, Nystatin 276236 UNIT/GM 1 application to affected ar ea Externally groin Twice a day prn for 30 day(s) May, Breo Ellipta 100-25 MCG/INH 1 puff Inhalation Once a day for 90 Atorvastatin Calcium [address] Mckeon Orally Once a day for 90 Levemir FlexTouch 100 UNIT/ML 46 units Subcutaneous twice daily for 90 day(s) Singulair 10 mg 1 tab(s) Orally daily for 90 Next Appt Details Provider Name:Hillary Williamson, 2020-10-02 10:00:00 AM, [address], [place], [address], Insurance Providers Payer Name Payer Address Payer Phone Insured Name Patient Relati onship to Insured Coverage Start Date Coverage End Date [facility] [address] [address] [facility] [address] [phone] SHAY JACOME self
--- OUTSIDE RECORDS SUMMARY | 2020-07-26 09:49 | CCD ---
Author Author [facility] Organization [facility] Address Unknown Phone Unavailable Care Team Providers Care Customer Support Engineer Name Role Phone Hillary Williamson Unavailable PROBLEMS Type Condition ICD9-CM Code LLM90-DA Code Onset Dates Condition S tatus SNOMED Code Notes Problem [place] (obstructive sleep apnea) G47.33 Active 78 330696 Problem Hypertensive heart disease without heart failure I 11.9 Active 18406517 Problem Cirrhosis of liver K74.60 Active 20037745 Problem Senile osteoporosis M81.0 Active 78098875 Problem Cirrhosis of liver without ascites, unsp ecified hepatic cirrhosis type K74.60 Active 36748843 Problem Hepatic cirrhosis, unspecified hepatic cirrhosis type K74.60 Active 87038493 Problem Essential hypertension I10 Active 37971476 Problem DM w/o complication type II E11.9 Active 4405 4006 Problem Other pancytopenia D61.818 Active 383481015 Problem Mixed hyperlipidemia E78.2 Active 362127599 Problem Atherosclerosis of [place] co ronary artery of [place] heart without angina pectoris I25.10 Active 993468006150987 Problem Type 2 diabetes mellitus with hyperglycemia E11.65 Active 32438055 Problem Morbid (severe) obesity due to excess calories E66 .01 Active 973627983 Problem Body mass index (BMI) of 40.0-44.9 in adult Z68.41 Active 083286070 Problem Type 2 diabetes mellitus with other specified complication E11.69 Active 15213575 Problem Obesity, unspecified E66.9 Active 205198906 Problem Psoriasis L40.9 Active 9325488 Problem Constipation, unspecified constipation type K59.00 Active 03913284 Problem Mild intermittent asthma without complication J45. 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 Active 107599198 Problem Moderate persistent asthma, unspecified whether complicate d J45.40 Active 927239762 Problem Hypothyroidism, unspecified type E03.9 Active 88713000 Problem Right bundle branch block I45.10 Active 091590 01 ALLERGIES Allergen (clinical drug ingredient) Drug/Non Drug Allergy do cumented on EMR Reaction Allergy Type Onset Date Status aspirin vonvickyllhimabrands Non Drug Allergy Act paulette allopurinol/colchicine pancytopenia Non Drug Allergy Active ENCOUNTERS from 1950 to 2020-07-17 Encounter Location Date Provider Diagnosis [facility] [address] [place] [address] 11 Jul, Hillary Muna-Tartell IMMUNIZATIONS Vaccine Route Administration [...] Notes Total Score: 0 Interpretation: Alcohol Education Bahai: Question Answer Notes Bahai 03 [employer] Sexual Hx: Question Answer Notes Had sex [...] Start Da te End Date Status Pen [place] 31G X 6 MM as directed DX:11.9 four times daily for 90 day(s) Jan, Active Nystatin 957735 UNIT/GM 1 application to affected ar ea [...] 4 hrs if needed for 50 Active Blood Glucose Test - 1 strip In Vitro DX: E11.65 four times daily fo r 25 Active NovoLog Flexpen 100 UNIT/ML as directed, mdd 42 units Subcut aneous tid for 106 Active Gabapentin 100 MG 1 capsule Orally tid for 30 Active Atorvastatin Calcium [address] Mckeon Orally Once a day for 90 Active Levemir FlexTouch 100 UNIT/ML 46 units Subcutaneous twice daily for 90 day(s) Active Banophen 25 MG 1 tablet as needed Orally every 4 hours as needed for 20 Active Nexium 40 mg 1 capsule Orally daily for 90 Active [address]itrostat 0[address] 1 TABLET UNDER THE TON NANCY EVERY 5 MINUTES UP TO 3 DOSES, FOR CHEST PAIN. IF CHEST PAIN PERSISTS CALL 911 Sublingual for 30 day(s) Active Nystatin 641205 UNIT/GM 1 application to affected ar ea Externally groin Twice a day prn for 30 day(s) May, Active Clotrimazole 1 % 1 application under breasts Externally Twice a day for 14 day(s) May, Active Breo Ellipta 100-25 MCG/INH 1 puff Inhalation Once a day for 90 Active HydrOXYzine HCl [...] 85% 04/18, [facility] Medical History Atherosclerosis of [place] co ronary artery of [place] heart without angina pectoris, NST normal perfusion 07/2015 - [facility] Medical History LVH, borderline pulmonary hypertension, echo 07/2015 - [facility] Medical History hyperlipidemia, mixed Medical History type II diabetes Medical History sleep apnea - on CPAP, PULMONOLOGY Medical History asthma - PFT at [facility] 02/18, FEV1 = 1.94 Medical History fatty liver - primary biliar y cirrhosis, [facility] at [place] 2010 - not a transplant candidate (normal [...] 10/16 Surgical History liver biopsy + cirrhosis, [facility] Hospitalization History surgery related Hospitalization History syncope [...] EVERY DAY Orally Daily for 90 days Blood Glucose Test - 1 strip In Vitro DX: E11.65 four times renetta ly for 25 Clotrimazole 1 % 1 application under breasts Externally Twice a day for 14 day(s) May, Nystatin 181851 UNIT/GM 1 application to affected ar ea Externally groin Twice a day prn for 30 day(s) May, Levemir FlexTouch 100 UNIT/ML 46 units Subcutaneous twice daily for 90 day(s) Atorvastatin Calcium [address] Mckeon Orally Once a day for 90 Nexium 40 mg 1 capsule Orally daily for 90 Singulair 10 mg 1 tab(s) Orally daily for 90 Breo Ellipta 100-25 MCG/INH 1 puff Inhalation Once a day for 90 Next Appt Details Provider Name:Hillary Williamson, 2020-10-02 10:00:00 AM, [address], [place], [address], Insurance Providers Payer Name Payer Address Payer Phone Insured Name Patient Relati onship to Insured Coverage Start Date Coverage End Date [facility] [employer] [facility] [address] [address] [facility] [address] [phone] SHAY JACOME self
--- OUTSIDE RECORDS SUMMARY | 2020-07-26 09:50 | CCD ---
Author Author [facility] Organization [facility] Address Unknown Phone Unavailable Support Name Relationship Address Phone RETIRED Next Of Kin Unknown DISABLED Next Of Kin Unknown Unavailable RE Next Of Kin Unknown Unavailable UE Next Of Kin Unknown Unavailable UNEMPLOYED Next Of Kin [address] [place] [address] MARTI JACOME Next Of Kin [address] [place] [address] MARTI JACOME ECON [address] [place] [address] Re-disclosure Warning The records that you are about to access may contain information from federally-assisted alcohol or drug abuse programs. If such information is present, then the following federally mandated warning applies: This information has been disclosed to you from records protected by federal confidentiality rules (42 CFR part 2). The federal rules prohibit you from making any further disclosure of this information unless further disclosure is expressly permitted by the written consent of the person to whom it pertains or as otherwise permitted by 42 CFR part 2. A general authorization for the release of medical or other information is NOT sufficient for this purpose. The Federal rules restrict any use of the information to criminally investigate or prosecute any alcohol or drug abuse patient.The records that you are about to access may contain highly sensitive health information, the redisclosure of which is protected by Article 27-F of the [facility] Public Health law. If you continue you may have access to information: Regarding HIV / AIDS; Provided by facilities licensed or operated by the [facility] Office of Mental Health; or Provided by the [facility] Office for People With Developmental Disabilities. If such information is present, then the following [facility] mandated warning applies: This information has been disclosed to you from confidential records which are protected by state law. State law prohibits you from making any further disclosure of this information without the specific written consent of the person to whom it pertains, or as otherwise permitted by law. Any unauthorized further disclosure in violation of state law may result in a fine or senior care sentence or both. A general authorization for the release of medical or other information is NOT sufficient authorization for further disc losure. Allergies and Adverse Reactions Type Description Substance Reaction Status Data Source(s ) allopurinol/colchicine allopurinol/colchicine allopurinol/colchi cine pancytopenia Active eCW1 ([facility]) aspirin aspirin aspirin vonwillenbrands Active eCW1 ([facility]) allopurinol/colchicine allopurinol/colchicine allopurinol/colchi cine pancytopenia Active eCW1 ([facility]) aspirin aspirin aspirin vonwillenbrands Active eCW1 ([facility]) Family History Family Member Name Family Member Gender Family Member Status Date o f Status Description Data Source(s) Unknown Unknown Problem MEDENT ([facility]) Unknown Unknown Problem MEDENT ([facility]) Encounters Encounter Providers Location Date Indications Data Source(s ) Unknown [address] [place] [address] 07/20/2020 12:00:00 AM EST [facility] Unknown [address] [facility] [address] 07/17/2020 12:00:00 AM EST [facility]CW1 [facility] Unknown [address] [place] [address] 06/18/2020 12:00:00 AM EST [facility] Unknown [address] [place] [address] 06/14/2020 12:00:00 AM EST eCW1 ([facility]) Unknown [address] [place] [address] 06/12/2020 12:00:00 AM EST eCW1 ([facility]) Unknown [address] [place] [address] 06/05/2020 12:00:00 AM EST [facility]CW1 ([facility]) Unknown [address] [place] [address] 05/30/2020 12:00:00 AM EST eCW1 ([facility]) Out[place] [address] [facility] [address] 05/22/2020 12:00:00 AM EST eCW1 ([facility]) Unknown [address] [facility] [address] 05/09/2020 12:00:00 AM EST eCW1 ([facility]) Outpatient [address] [facility] [address] 04/28/2020 12:00:00 AM EDT eCW1 ([facility]) Unknown [address] [facility] [place] [address] 04/19/2020 12:00:00 AM EDT eCW1 ([facility]) Unknown [address] [address] 04/18/2020 12:00:00 AM EDT [facility] [address] [place] [address] 03/16/2020 12:00:00 AM EDT eCW1 ([facility]) Outpatient [address] [address] 01/12/2020 12:00:00 AM EDT eCW1 ([facility]) [facility] Don [address] [facility] Y [address] 12/16/2019 12:00:00 AM EDT eCW1 ([facility]) [facility] Don [address] [place] [address] 12/10/2019 12:00:00 AM EDT eCW1 ([facility]) Unknown [address] [address] 12/08/2019 12:00:00 AM EDT eCW1 ([facility]) [facility] Don [address] [address] 11/26/2019 12:00:00 AM EDT eCW1 ([facility]) [facility] [address] [facility] [address] 11/24/2019 12:00:00 AM EDT eCW1 ([facility]) [facility] [place] [address] [facility] [address] 11/24/2019 12:00:00 AM EDT eCW1 ([facility]) [facility] [place] [address] [facility] [address] 10/20/2019 12:00:00 AM EDT eCW1 ([facility]) [facility] Don [address] [place] [address], [place] [address] 09/29/2019 12:00:00 AM EDT eCW1 ([facility]) [facility] Don [address] [place] [address], [place] [address] 09/23/2019 12:00:00 AM EDT eCW1 ([facility]) [facility] [address] [place] [address], [place] [address] 09/17/2019 12:00:00 AM EDT eCW1 ([facility]) [address], [place] [address] 08/19/2019 12:00:00 AM EST eCW1 ([facility]) [facility] Dermatology [address] [address] 08/17/2019 12:00:00 AM EST eCW1 ([facility]) [facility] [address] [place] [address], [place] [address] 08/02/2019 12:00:00 AM EST eCW1 ([facility]) [address] [place] [address] 07/23/2019 12:00:00 AM EST eCW1 ([facility]) [facility] Dermatology [address] [place] [address] 07/04/2019 12:00:00 AM EST eCW1 ([facility]) [address] [place] [address] 06/28/2019 12:00:00 AM EST eCW1 ([facility]) [facility] Arian Saucedo [facility] [address] 06/23/2019 12:00:00 AM EST eCW1 ([facility]) [facility] Arian Saucedo [facility] [address] 06/14/2019 12:00:00 AM EST eCW1 ([facility]) [facility] Arian Saucedo [facility] [address] 06/14/2019 12:00:00 AM EST eCW1 ([facility]) [facility] Arian Saucedo [facility] [address] 06/14/2019 12:00:00 AM EST eCW1 ([facility]) [facility] Arian Saucedo [facility] [address] 05/28/2019 12:00:00 AM EST eCW1 ([facility]) Immunizations Vaccine Date Status Description Data Source(s) influenza, recombinant, quadrIvalent,injectable, prese rvative free 05/22/2020 01:24:00 PM EST completed eCW1 ([facility]) influenza, recombinant, quadrIvalent,injectable, prese rvative free 05/22/2020 01:24:00 PM EST completed eCW1 ([facility]) influenza, recombinant, quadrIvalent,injectable, prese rvative free 05/22/2020 01:24:00 PM EST completed eCW1 ([facility]) influenza, recombinant, quadrIvalent,injectable, prese rvative free 05/22/2020 01:24:00 PM EST completed eCW1 ([facility]) influenza, recombinant, quadrIvalent,injectable, prese rvative free 05/22/2020 01:24:00 PM EST completed eCW1 ([facility]) influenza, recombinant, quadrIvalent,injectable, prese rvative free 05/22/2020 01:24:00 PM EST completed eCW1 ([facility]) influenza, recombinant, quadrIvalent,injectable, prese rvative free 05/22/2020 01:24:00 PM EST completed eCW1 ([facility]) influenza, recombinant, quadrIvalent,injectable, prese rvative free 05/22/2020 01:24:00 PM EST completed eCW1 ([facility]) influenza, recombinant, quadrIvalent,injectable, prese rvative free 05/28/2019 11:56:00 AM EST completed eCW1 ([facility]) influenza, recombinant, quadrIvalent,injectable, prese rvative free 05/28/2019 11:56:00 AM EST completed eCW1 ([facility]) influenza, recombinant, quadrIvalent,injectable, prese rvative free 05/28/2019 11:56:00 AM EST completed eCW1 ([facility]) influenza, recombinant, quadrIvalent,injectable, prese rvative free 05/28/2019 11:56:00 AM EST completed eCW1 ([facility]) influenza, recombinant, quadrIvalent,injectable, prese rvative free 05/28/2019 11:56:00 AM EST completed eCW1 ([facility]) influenza, recombinant, quadrIvalent,injectable, prese rvative free 05/28/2019 11:56:00 AM EST completed eCW1 ([facility]) influenza, recombinant, quadrIvalent,injectable, prese rvative free 05/28/2019 11:56:00 AM EST completed eCW1 ([facility]) influenza, recombinant, quadrIvalent,injectable, prese rvative free 05/28/2019 11:56:00 AM EST completed eCW1 ([facility]) influenza, recombinant, quadrIvalent,injectable, prese rvative free 05/28/2019 11:56:00 AM EST completed eCW1 ([facility]) influenza, recombinant, quadrIvalent,injectable, prese rvative free 05/28/2019 11:56:00 AM EST completed eCW1 ([facility]) influenza, recombinant, quadrIvalent,injectable, prese rvative free 05/28/2019 11:56:00 AM EST completed eCW1 ([facility]) influenza, recombinant, quadrIvalent,injectable, prese rvative free 05/28/2019 11:56:00 AM EST completed eCW1 ([facility]) influenza, recombinant, quadrIvalent,injectable, prese rvative free 05/28/2019 11:56:00 AM EST completed eCW1 ([facility]) influenza, recombinant, quadrIvalent,injectable, prese rvative free 05/28/2019 11:56:00 AM EST completed eCW1 ([facility]) influenza, recombinant, quadrIvalent,injectable, prese rvative free 05/28/2019 11:56:00 AM EST completed eCW1 ([facility]) influenza, recombinant, quadrIvalent,injectable, prese rvative free 05/28/2019 11:56:00 AM EST completed eCW1 ([facility]) Medications Medication Brand Name Start Date Product Form Dose Route Admi nistrative Instructions Pharmacy Instructions Status Indications Reaction Description Data Source(s) BLOOD SUGAR DIAGNOSTIC 07/18/2020 12:00:00 AM EST strip 100 USE FOUR TIMES A DAY USE FOUR TIMES A DAY SOLD: 07/20/2020 [facility] 40 mg 06/19/2020 12:00:00 AM EST tablet 90 TAKE ONE TABLET BY MOUTH EVERY DAY TAKE ONE TABLET BY MOUTH EVERY DAY SOLD: 06/20/2020 [facility] Esomeprazole 40 MG Delayed Release Oral Capsule ESOMEPRAZOLE MAGNESIUM 06/15/2020 12:00:00 AM EST capsule,delayed release(DR/EC) 90 TAKE ONE CAPSULE BY MOUTH EVERY DAY TAKE ONE CAPSULE BY MOUTH EVERY DAY SOLD: 06/20/2020 [facility] 100 unit/mL (3 mL) 06/15/2020 12:00:00 AM EST insulin pen 30 INJECT UNDER THE SKIN THREE TIMES A DAY DIRECTED, MAXIMUM DAILY DOSE = 42 UNITS INJECT UNDER THE SKIN THREE TIMES A DAY DIRECTED, MAXIMUM DAILY DOSE = 42 UNITS SOLD: 06/16/2020 [facility] 50 mcg 06/13/2020 12:00:00 AM EST tablet 90 TAKE ONE TABLET BY MOUTH EVERY MORNING ON EMPTY STOMACH TAKE ONE TABLET BY MOUTH EVERY MORNING O N EMPTY STOMACH SOLD: 06/20/2020 [facility] 100-25 mcg/dose 06/13/2020 12:00:00 AM EST blister with yessica ce 180 INHALE ONE PUFF BY MOUTH EVERY DAY INHALE ONE PUFF BY MOUTH EVERY DAY SOLD: 06/20/2020 [facility] montelukast 10 MG Oral Tablet MONTELUKAST SODIUM 06/13/2020 12:0 0:00 AM EST tablet 90 TAKE ONE TABLET BY MOUTH EVERY D AY TAKE ONE TABLET BY MOUTH EVERY DAY SOLD: 06/20/2020 [facility] 80 mg 06/12/2020 12:00:00 AM EST tablet 90 TAKE ONE TABLET BY MOUTH EVERY DAY TAKE ONE TABLET BY MOUTH EVERY DAY SOLD: 06/20/2020 [facility] 25 mg 06/12/2020 12:00:00 AM EST tablet 45 TAKE 1/2 TABLET BY MOUTH ONCE DAILY TAKE 1/2 TABLET BY MOUTH ONCE DAILY SOLD: 06/20/2020 [facility] Clotrimazole 10 MG/ML Topical Cream Clotrimazole 1 % Clotrim azole 1 % 05/22/2020 12:00:00 AM EST active Clotrima zole 1 % eCW1 ([facility]) 100 unit/mL (3 mL) 05/22/2020 12:00:00 AM EST insulin pen 45 INJECT 46 UNITS SUBCUTANEOUSLY TWICE DAILY INJECT 46 UNITS SUBCUTANEOUSLY TWICE DAILY SOLD: 05/22/2020 [facility] Clotrimazole 10 MG/ML Topical Cream Clotrimazole 1 % Clotrim azole 1 % 05/22/2020 12:00:00 AM EST active Clotrima zole 1 % eCW1 ([facility]) Clotrimazole 10 MG/ML Topical Cream Clotrimazole 1 % Clotrim azole 1 % 05/22/2020 12:00:00 AM EST active Clotrima zole 1 % eCW1 ([facility]) 100 unit/mL (3 mL) 05/22/2020 12:00:00 AM EST insulin pen 45 INJECT 46 UNITS SUBCUTANEOUSLY TWICE DAILY INJECT 46 UNITS SUBCUTANEOUSLY TWICE DAILY SOLD: 07/11/2020 [facility] Clotrimazole 10 MG/ML Topical Cream Clotrimazole 1 % Clotrim azole 1 % 05/22/2020 12:00:00 AM EST active Clotrima zole 1 % eCW1 ([facility]) Clotrimazole 10 MG/ML Topical Cream Clotrimazole 1 % Clotrim azole 1 % 05/22/2020 12:00:00 AM EST active Clotrima zole 1 % eCW1 ([facility]) Clotrimazole 10 MG/ML Topical Cream Clotrimazole 1 % Clotrim azole 1 % 05/22/2020 12:00:00 AM EST active Clotrima zole 1 % eCW1 ([facility]) Clotrimazole 10 MG/ML Topical Cream Clotrimazole 1 % Clotrim azole 1 % 05/22/2020 12:00:00 AM EST active Clotrima zole 1 % eCW1 ([facility]) Clotrimazole 10 MG/ML Topical Cream Clotrimazole 1 % Clotrim azole 1 % 05/22/2020 12:00:00 AM EST active Clotrima zole 1 % eCW1 ([facility]) 31 gauge x 1/4" 05/11/2020 12:00:00 AM EST needle 400 USE DIRECTED FOUR TIMES A DAY USE DIRECTED FOUR TIMES A DAY SOLD: 05/12/2020 [facility] 550 mg 04/21/2020 12:00:00 AM EDT tablet 60 TAKE ONE TABLET BY MOUTH TWICE A DAY TAKE ONE TABLET BY MOUTH TWICE A DAY SOLD: 06/20/2020 [facility] 550 mg 04/21/2020 12:00:00 AM EDT tablet 60 TAKE ONE TABLET BY MOUTH TWICE A DAY TAKE ONE TABLET BY MOUTH TWICE A DAY SOLD: 04/22/2020 [facility] 550 mg 04/21/2020 12:00:00 AM EDT tablet 60 TAKE ONE TABLET BY MOUTH TWICE A DAY TAKE ONE TABLET BY MOUTH TWICE A DAY SOLD: 07/20/2020 [facility] 550 mg 04/21/2020 12:00:00 AM EDT tablet 60 TAKE ONE TABLET BY MOUTH TWICE A DAY TAKE ONE TABLET BY MOUTH TWICE A DAY SOLD: 05/22/2020 [facility] 100,000 unit/gram 03/23/2020 12:00:00 AM EDT ointment 30 APPLY TO GROIN AREA TWO TIMES A DAY NEEDED FOR ITCHING / RASH APPLY TO GROIN AREA TWO TIMES A DAY NEEDED FOR ITCHING / RASH SOLD: 05/03/2020 [facility] 100,000 unit/gram 03/23/2020 12:00:00 AM EDT ointment 30 APPLY TO GROIN AREA TWO TIMES A DAY NEEDED FOR ITCHING / RASH APPLY TO GROIN AREA TWO TIMES A DAY NEEDED FOR ITCHING / RASH SOLD: 03/30/2020 [facility] 100 mg 03/17/2020 12:00:00 AM EDT capsule 270 TAKE ONE CAPSULE BY MOUTH THREE TIMES A DAY TAKE ONE CAPSULE BY MOUTH THREE TIMES A DAY SOLD: 06/20/2020 [facility] Esomeprazole 40 MG Delayed Release Oral Capsule ESOMEPRAZOLE MAGNESIUM 03/17/2020 12:00:00 AM EDT capsule,delayed release(DR/EC) 90 TAKE ONE CAPSULE BY MOUTH EVERY DAY TAKE ONE CAPSULE BY MOUTH EVERY DAY SOLD: 03/18/2020 [facility] 100 mg 03/17/2020 12:00:00 AM EDT capsule 270 TAKE ONE CAPSULE BY MOUTH THREE TIMES A DAY TAKE ONE CAPSULE BY MOUTH THREE TIMES A DAY SOLD: 03/18/2020 [facility] montelukast 10 MG Oral Tablet MONTELUKAST SODIUM 03/17/2020 12:0 0:00 AM EDT tablet 90 TAKE ONE TABLET BY MOUTH EVERY D AY TAKE ONE TABLET BY MOUTH EVERY DAY SOLD: 03/18/2020 [facility] 40 mg 03/17/2020 12:00:00 AM EDT tablet 90 TAKE ONE TABLET BY MOUTH EVERY DAY TAKE ONE TABLET BY MOUTH EVERY DAY SOLD: 03/18/2020 [facility] atorvastatin 80 MG Oral Tablet ATORVASTATIN CALCIUM 03/16/2020 1 2:00:00 AM EDT tablet 90 TAKE ONE TABLET BY MOUTH EVERY D AY TAKE ONE TABLET BY MOUTH EVERY DAY SOLD: 03/18/2020 [facility] 50 mcg 03/08/2020 12:00:00 AM EDT tablet 30 TAKE ONE TABLET BY MOUTH EVERY MORNING ON EMPTY STOMACH TAKE ONE TABLET BY MOUTH EVERY MORNING O N EMPTY STOMACH SOLD: 03/09/2020 [facility] gabapentin 100 MG Oral Capsule Gabapentin 02/20/2020 12:00:00 AM EDT ORAL active MEDENT ([facility]) Multi Vitamin 02/20/2020 12:00:00 AM EDT acti ve MEDENT ([facility]) 100 unit/mL (3 mL) 02/06/2020 12:00:00 AM EDT insulin pen 30 DIRECTED THREE TIMES A DAY MAXIMUM DAILY DOSE = 42 UNITS DIRECTED THREE TIMES A DAY MAXIMUM DAILY DOSE = 42 UNITS SOLD: 03/18/2020 [facility] 100 unit/mL (3 mL) 02/06/2020 12:00:00 AM EDT insulin pen 30 DIRECTED THREE TIMES A DAY MAXIMUM DAILY DOSE = 42 UNITS DIRECTED THREE TIMES A DAY MAXIMUM DAILY DOSE = 42 UNITS SOLD: 02/06/2020 [facility] 100 unit/mL (3 mL) 02/06/2020 12:00:00 AM EDT insulin pen 30 DIRECTED THREE TIMES A DAY MAXIMUM DAILY DOSE = 42 UNITS DIRECTED THREE TIMES A DAY MAXIMUM DAILY DOSE = 42 UNITS SOLD: 05/03/2020 [facility] 100 unit/mL (3 mL) 02/06/2020 12:00:00 AM EDT insulin pen 30 DIRECTED THREE TIMES A DAY MAXIMUM DAILY DOSE = 42 UNITS DIRECTED THREE TIMES A DAY MAXIMUM DAILY DOSE = 42 UNITS SOLD: 02/26/2020 [facility] 100 unit/mL (3 mL) 02/06/2020 12:00:00 AM EDT insulin pen 30 DIRECTED THREE TIMES A DAY MAXIMUM DAILY DOSE = 42 UNITS DIRECTED THREE TIMES A DAY MAXIMUM DAILY DOSE = 42 UNITS SOLD: 05/25/2020 [facility] 100 unit/mL (3 mL) 02/06/2020 12:00:00 AM EDT insulin pen 30 DIRECTED THREE TIMES A DAY MAXIMUM DAILY DOSE = 42 UNITS DIRECTED THREE TIMES A DAY MAXIMUM DAILY DOSE = 42 UNITS SOLD: 04/10/2020 [facility] 100,000 unit/gram 01/19/2020 12:00:00 AM EDT ointment 30 APPLY TO GROIN AREA TWO TIMES A DAY NEEDED FOR ITCHING / RASH APPLY TO GROIN AREA TWO TIMES A DAY NEEDED FOR ITCHING / RASH SOLD: 01/20/2020 [facility] 100,000 unit/gram 01/19/2020 12:00:00 AM EDT ointment 30 APPLY TO GROIN AREA TWO TIMES A DAY NEEDED FOR ITCHING / RASH APPLY TO GROIN AREA TWO TIMES A DAY NEEDED FOR ITCHING / RASH SOLD: 02/20/2020 [facility] Benadryl Extra Strength 2-0.1 % Benadryl Extra Strength 2-0. 1 % 01/12/2020 12:00:00 AM EDT 1.0 {application_as_needed} acti ve Benadryl Extra Strength 2-0.1 % eCW1 ([facility]) Benadryl Extra Strength 2-0.1 % Benadryl Extra Strength 2-0. 1 % 01/12/2020 12:00:00 AM EDT 1.0 {application_as_needed} susp ended Benadryl Extra Strength 2-0.1 % eCW1 ([facility]) Levothyroxine Sodium 0.05 MG Oral Tablet Levothyroxine Sodium 50 MCG Levothyroxine Sodium 50 MCG 01/12/2020 12:00:00 AM EDT active Levothyroxine Sodium 50 MCG eCW1 ([facility]) Benadryl Extra Strength 2-0.1 % Benadryl Extra Strength 2-0. 1 % 01/12/2020 12:00:00 AM EDT 1.0 {application_as_needed} acti ve Benadryl Extra Strength 2-0.1 % eCW1 ([facility]) Levothyroxine Sodium 0.05 MG Oral Tablet Levothyroxine Sodium 50 MCG Levothyroxine Sodium 50 MCG 01/12/2020 12:00:00 AM EDT active Levothyroxine Sodium 50 MCG eCW1 ([facility]) Benadryl Extra Strength 2-0.1 % Benadryl Extra Strength 2-0. 1 % 01/12/2020 12:00:00 AM EDT 1.0 {application_as_needed} susp ended Benadryl Extra Strength 2-0.1 % eCW1 ([facility]) Levothyroxine Sodium 0.05 MG Oral Tablet Levothyroxine Sodium 50 MCG Levothyroxine Sodium 50 MCG 01/12/2020 12:00:00 AM EDT active Levothyroxine Sodium 50 MCG eCW1 ([facility]) 50 mcg 01/12/2020 12:00:00 AM EDT tablet 30 TAKE ONE TABLET BY MOUTH EVERY MORNING ON EMPTY STOMACH TAKE ONE TABLET BY MOUTH EVERY MORNING O N EMPTY STOMACH SOLD: 02/10/2020 [facility] Benadryl Extra Strength 2-0.1 % Benadryl Extra Strength 2-0. 1 % 01/12/2020 12:00:00 AM EDT 1.0 {application_as_needed} susp ended Benadryl Extra Strength 2-0.1 % eCW1 ([facility]) Levothyroxine Sodium 0.05 MG Oral Tablet Levothyroxine Sodium 50 MCG Levothyroxine Sodium 50 MCG 01/12/2020 12:00:00 AM EDT active Levothyroxine Sodium 50 MCG eCW1 ([facility]) Levothyroxine Sodium 0.05 MG Oral Tablet Levothyroxine Sodium 50 MCG Levothyroxine Sodium 50 MCG 01/12/2020 12:00:00 AM EDT active Levothyroxine Sodium 50 MCG eCW1 ([facility]) Benadryl Extra Strength 2-0.1 % Benadryl Extra Strength 2-0. 1 % 01/12/2020 12:00:00 AM EDT 1.0 {application_as_needed} acti ve Benadryl Extra Strength 2-0.1 % eCW1 ([facility]) Levothyroxine Sodium 0.05 MG Oral Tablet Levothyroxine Sodium 50 MCG Levothyroxine Sodium 50 MCG 01/12/2020 12:00:00 AM EDT active Levothyroxine Sodium 50 MCG eCW1 ([facility]) Levothyroxine Sodium 0.05 MG Oral Tablet Levothyroxine Sodium 50 MCG Levothyroxine Sodium 50 MCG 01/12/2020 12:00:00 AM EDT active Levothyroxine Sodium 50 MCG eCW1 ([facility]) Benadryl Extra Strength 2-0.1 % Benadryl Extra Strength 2-0. 1 % 01/12/2020 12:00:00 AM EDT 1.0 {application_as_needed} acti ve Benadryl Extra Strength 2-0.1 % eCW1 ([facility]) Benadryl Extra Strength 2-0.1 % Benadryl Extra Strength 2-0. 1 % 01/12/2020 12:00:00 AM EDT 1.0 {application_as_needed} susp ended Benadryl Extra Strength 2-0.1 % eCW1 ([facility]) Levothyroxine Sodium 0.05 MG Oral Tablet Levothyroxine Sodium 50 MCG Levothyroxine Sodium 50 MCG 01/12/2020 12:00:00 AM EDT active Levothyroxine Sodium 50 MCG eCW1 ([facility]) Benadryl Extra Strength 2-0.1 % Benadryl Extra Strength 2-0. 1 % 01/12/2020 12:00:00 AM EDT 1.0 {application_as_needed} susp ended Benadryl Extra Strength 2-0.1 % eCW1 ([facility]) Benadryl Extra Strength 2-0.1 % UNK 01/12/2020 12:00:00 AM EDT 1.0 {application_as_needed} suspended Benadr yl Extra Strength 2-0.1 % eCW1 ([facility]) Benadryl Extra Strength 2-0.1 % Benadryl Extra Strength 2-0. 1 % 01/12/2020 12:00:00 AM EDT 1.0 {application_as_needed} susp ended Benadryl Extra Strength 2-0.1 % eCW1 ([facility]) Levothyroxine Sodium 0.05 MG Oral Tablet Levothyroxine Sodium 50 MCG Levothyroxine Sodium 50 MCG 01/12/2020 12:00:00 AM EDT active Levothyroxine Sodium 50 MCG eCW1 ([facility]) Benadryl Extra Strength 2-0.1 % UNK 01/12/2020 12:00:00 AM EDT 1.0 {application_as_needed} suspended Benadr yl Extra Strength 2-0.1 % eCW1 ([facility]) Levothyroxine Sodium 0.05 MG Oral Tablet Levothyroxine Sodium 50 MCG Levothyroxine Sodium 50 MCG 01/12/2020 12:00:00 AM EDT active Levothyroxine Sodium 50 MCG [facility] [facility]) Levothyroxine Sodium 0.05 MG Oral Tablet Levothyroxine Sodium 50 MCG Levothyroxine Sodium 50 MCG 01/12/2020 12:00:00 AM EDT active Levothyroxine Sodium 50 MCG eCW1 ([facility]) Levothyroxine Sodium 0.05 MG Oral Tablet Levothyroxine Sodium 50 MCG Levothyroxine Sodium 50 MCG 01/12/2020 12:00:00 AM EDT active Levothyroxine Sodium 50 MCG eCW1 ([facility]) 50 mcg 01/12/2020 12:00:00 AM EDT tablet 30 TAKE ONE TABLET BY MOUTH EVERY MORNING ON EMPTY STOMACH TAKE ONE TABLET BY MOUTH EVERY MORNING O N EMPTY STOMACH SOLD: 01/12/2020 [facility] Benadryl Extra Strength 2-0.1 % Benadryl Extra Strength 2-0. 1 % 01/12/2020 12:00:00 AM EDT 1.0 {application_as_needed} acti ve Benadryl Extra Strength 2-0.1 % eCW1 ([facility]) Levothyroxine Sodium 0.05 MG Oral Tablet Levothyroxine Sodium 50 MCG Levothyroxine Sodium 50 MCG 01/12/2020 12:00:00 AM EDT active Levothyroxine Sodium 50 MCG eCW1 ([facility]) 100-25 mcg/dose 12/20/2019 12:00:00 AM EDT blister with yessica ce 180 INHALE 1 PUFF BY MOUTH ONCE DAILY INHALE 1 PUFF BY MOUTH ONCE DAILY SOLD: 03/18/2020 [facility] 100-25 mcg/dose 12/20/2019 12:00:00 AM EDT blister with yessica ce 180 INHALE 1 PUFF BY MOUTH ONCE DAILY INHALE 1 PUFF BY MOUTH ONCE DAILY SOLD: 12/22/2019 [facility] 25 mg 12/16/2019 12:00:00 AM EDT tablet 120 TAKE ONE TABLET BY MOUTH EVERY 4 HOURS NEEDED TAKE ONE TABLET BY MOUTH EVERY 4 HOURS NEEDED SOLD: 12/17/2019 [facility] 100 unit/mL (3 mL) 12/02/2019 12:00:00 AM EDT insulin pen 30 INJECT UNDER THE SKIN THREE TIMES A DAY DIRECTED, MAXIMUM DAILY DOSE = 42 UNITS INJECT UNDER THE SKIN THREE TIMES A DAY DIRECTED, MAXIMUM DAILY DOSE = 42 UNITS SOLD: 12/10/2019 [facility] Hydroxyzine Hydrochloride 25 MG Oral Tablet HydrOXYzin e HCl 25 MG HydrOXYzine HCl 25 MG 11/24/2019 12:00:00 AM EDT 1.0 {tablet_as_needed} active HydrOXYzine HCl 25 MG eCW1 ([facility]) Hydroxyzine Hydrochloride 25 MG Oral Tablet HydrOXYzin e HCl 25 MG HydrOXYzine HCl 25 MG 11/24/2019 12:00:00 AM EDT 1.0 {tablet_as_needed} active HydrOXYzine HCl 25 MG eCW1 ([facility]) Hydroxyzine Hydrochloride 25 MG Oral Tablet HydrOXYzin e HCl 25 MG HydrOXYzine HCl 25 MG 11/24/2019 12:00:00 AM EDT 1.0 {tablet_as_needed} active HydrOXYzine HCl 25 MG eCW1 ([facility]) Hydroxyzine Hydrochloride 25 MG Oral Tablet HydrOXYzin e HCl 25 MG HydrOXYzine HCl 25 MG 11/24/2019 12:00:00 AM EDT 1.0 {tablet_as_needed} active HydrOXYzine HCl 25 MG eCW1 ([facility]) Hydroxyzine Hydrochloride 25 MG Oral Tablet HydrOXYzin e HCl 25 MG HydrOXYzine HCl 25 MG 11/24/2019 12:00:00 AM EDT 1.0 {tablet_as_needed} active HydrOXYzine HCl 25 MG eCW1 ([facility]) Hydroxyzine Hydrochloride 25 MG Oral Tablet HydrOXYzin e HCl 25 MG HydrOXYzine HCl 25 MG 11/24/2019 12:00:00 AM EDT 1.0 {tablet_as_needed} active HydrOXYzine HCl 25 MG eCW1 ([facility]) Hydroxyzine Hydrochloride 25 MG Oral Tablet HydrOXYzin e HCl 25 MG HydrOXYzine HCl 25 MG 11/24/2019 12:00:00 AM EDT 1.0 {tablet_as_needed} active HydrOXYzine HCl 25 MG eCW1 ([facility]) Hydroxyzine Hydrochloride 25 MG Oral Tablet HydrOXYzin e HCl 25 MG HydrOXYzine HCl 25 MG 11/24/2019 12:00:00 AM EDT 1.0 {tablet_as_needed} active HydrOXYzine HCl 25 MG eCW1 ([facility]) Hydroxyzine Hydrochloride 25 MG Oral Tablet HydrOXYzin e HCl 25 MG HydrOXYzine HCl 25 MG 11/24/2019 12:00:00 AM EDT 1.0 {tablet_as_needed} active HydrOXYzine HCl 25 MG eCW1 ([facility]) Hydroxyzine Hydrochloride 25 MG Oral Tablet HydrOXYzin e HCl 25 MG HydrOXYzine HCl 25 MG 11/24/2019 12:00:00 AM EDT 1.0 {tablet_as_needed} active HydrOXYzine HCl 25 MG eCW1 ([facility]) Hydroxyzine Hydrochloride 25 MG Oral Tablet HydrOXYzin e HCl 25 MG HydrOXYzine HCl 25 MG 11/24/2019 12:00:00 AM EDT 1.0 {tablet_as_needed} active HydrOXYzine HCl 25 MG eCW1 ([facility]) Hydroxyzine Hydrochloride 25 MG Oral Tablet HydrOXYzin e HCl 25 MG HydrOXYzine HCl 25 MG 11/24/2019 12:00:00 AM EDT 1.0 {tablet_as_needed} active HydrOXYzine HCl 25 MG eCW1 ([facility]) 25 mg 11/24/2019 12:00:00 AM EDT tablet 60 TAKE ONE TABLET BY MOUTH TWICE A DAY NEEDED TAKE ONE TABLET BY MOUTH TWICE A DAY NEEDED SOLD: 11/24/2019 [facility] Hydroxyzine Hydrochloride 25 MG Oral Tablet HydrOXYzin e HCl 25 MG HydrOXYzine HCl 25 MG 11/24/2019 12:00:00 AM EDT 1.0 {tablet_as_needed} active HydrOXYzine HCl 25 MG eCW1 ([facility]) Hydroxyzine Hydrochloride 25 MG Oral Tablet HydrOXYzin e HCl 25 MG HydrOXYzine HCl 25 MG 11/24/2019 12:00:00 AM EDT 1.0 {tablet_as_needed} active HydrOXYzine HCl 25 MG eCW1 ([facility]) Hydroxyzine Hydrochloride 25 MG Oral Tablet HydrOXYzin e HCl 25 MG HydrOXYzine HCl 25 MG 11/24/2019 12:00:00 AM EDT 1.0 {tablet_as_needed} active HydrOXYzine HCl 25 MG eCW1 ([facility]) 100,000 unit/gram 11/22/2019 12:00:00 AM EDT ointment 30 APPLY ONE APPLICATION EXTERNALLY TO GROIN AREA TWO TIMES A DAY NEEDED FOR ITCHING/RASH APPLY ONE APPLICATION EXTERNALLY TO GROIN AREA TWO TIMES A DAY NEEDED FOR ITCHING/RASH SOLD: 11/23/2019 [facility] 100,000 unit/gram 11/22/2019 12:00:00 AM EDT ointment 30 APPLY ONE APPLICATION EXTERNALLY TO GROIN AREA TWO TIMES A DAY NEEDED FOR ITCHING/RASH APPLY ONE APPLICATION EXTERNALLY TO GROIN AREA TWO TIMES A DAY NEEDED FOR ITCHING/RASH SOLD: 12/22/2019 [facility] 550 mg 10/25/2019 12:00:00 AM EDT tablet 60 TAKE ONE TABLET BY MOUTH TWICE A DAY TAKE ONE TABLET BY MOUTH TWICE A DAY SOLD: 10/26/2019 [facility] 550 mg 10/25/2019 12:00:00 AM EDT tablet 60 TAKE ONE TABLET BY MOUTH TWICE A DAY TAKE ONE TABLET BY MOUTH TWICE A DAY SOLD: 03/21/2020 [facility] 550 mg 10/25/2019 12:00:00 AM EDT tablet 60 TAKE ONE TABLET BY MOUTH TWICE A DAY TAKE ONE TABLET BY MOUTH TWICE A DAY SOLD: 01/20/2020 [facility] 550 mg 10/25/2019 12:00:00 AM EDT tablet 60 TAKE ONE TABLET BY MOUTH TWICE A DAY TAKE ONE TABLET BY MOUTH TWICE A DAY SOLD: 11/24/2019 [facility] 550 mg 10/25/2019 12:00:00 AM EDT tablet 60 TAKE ONE TABLET BY MOUTH TWICE A DAY TAKE ONE TABLET BY MOUTH TWICE A DAY SOLD: 02/20/2020 [facility] 550 mg 10/25/2019 12:00:00 AM EDT tablet 60 TAKE ONE TABLET BY MOUTH TWICE A DAY TAKE ONE TABLET BY MOUTH TWICE A DAY SOLD: 12/22/2019 [facility] 100 mg 10/21/2019 12:00:00 AM EDT capsule 270 TAKE ONE CAPSULE BY MOUTH THREE TIMES A DAY TAKE ONE CAPSULE BY MOUTH THREE TIMES A DAY SOLD: 12/22/2019 [facility] 100 mg 10/21/2019 12:00:00 AM EDT capsule 195 TAKE ONE CAPSULE BY MOUTH THREE TIMES A DAY TAKE ONE CAPSULE BY MOUTH THREE TIMES A DAY SOLD: 10/21/2019 [facility] BLOOD SUGAR DIAGNOSTIC 10/13/2019 12:00:00 AM EDT strip 100 USE 1 STRIP TO TEST FOUR TIMES A DAY USE 1 STRIP TO TEST FOUR TIMES A DAY SOLD: 10/18/2019 [facility] BLOOD SUGAR DIAGNOSTIC 10/13/2019 12:00:00 AM EDT strip 100 USE 1 STRIP TO TEST FOUR TIMES A DAY USE 1 STRIP TO TEST FOUR TIMES A DAY SOLD: 12/10/2019 [facility] BLOOD SUGAR DIAGNOSTIC 10/13/2019 12:00:00 AM EDT strip 100 USE 1 STRIP TO TEST FOUR TIMES A DAY USE 1 STRIP TO TEST FOUR TIMES A DAY SOLD: 01/04/2020 [facility] BLOOD SUGAR DIAGNOSTIC 10/13/2019 12:00:00 AM EDT strip 100 USE 1 STRIP TO TEST FOUR TIMES A DAY USE 1 STRIP TO TEST FOUR TIMES A DAY SOLD: 11/10/2019 [facility] BLOOD SUGAR DIAGNOSTIC 10/13/2019 12:00:00 AM EDT strip 100 USE 1 STRIP TO TEST FOUR TIMES A DAY USE 1 STRIP TO TEST FOUR TIMES A DAY SOLD: 01/28/2020 [facility] BLOOD SUGAR DIAGNOSTIC 10/13/2019 12:00:00 AM EDT strip 100 USE 1 STRIP TO TEST FOUR TIMES A DAY USE 1 STRIP TO TEST FOUR TIMES A DAY SOLD: 02/20/2020 [facility] 25 mg 09/30/2019 12:00:00 AM EDT tablet 120 TAKE ONE TABLET BY MOUTH EVERY 4 HOURS NEEDED TAKE ONE TABLET BY MOUTH EVERY 4 HOURS NEEDED SOLD: 10/01/2019 [facility] 25 mg 09/30/2019 12:00:00 AM EDT tablet 120 TAKE ONE TABLET BY MOUTH EVERY 4 HOURS NEEDED TAKE ONE TABLET BY MOUTH EVERY 4 HOURS NEEDED SOLD: 11/28/2019 [facility] 25 mg 09/30/2019 12:00:00 AM EDT tablet 120 TAKE ONE TABLET BY MOUTH EVERY 4 HOURS NEEDED TAKE ONE TABLET BY MOUTH EVERY 4 HOURS NEEDED SOLD: 10/19/2019 [facility] 25 mg 09/30/2019 12:00:00 AM EDT tablet 120 TAKE ONE TABLET BY MOUTH EVERY 4 HOURS NEEDED TAKE ONE TABLET BY MOUTH EVERY 4 HOURS NEEDED SOLD: 11/10/2019 [facility] 100,000 unit/gram 09/27/2019 12:00:00 AM EDT ointment 30 APPLY TO AFFECTED AREA TWO TIMES A DAY NEEDED FOR ITCHING / RASH TO GROIN APPLY TO AFFECTED AREA TWO TIMES A DAY NEEDED FOR ITCHING / RASH TO GROIN SOLD: 09/28/2019 [facility] 100,000 unit/gram 09/27/2019 12:00:00 AM EDT ointment 30 APPLY TO AFFECTED AREA TWO TIMES A DAY NEEDED FOR ITCHING / RASH TO GROIN APPLY TO AFFECTED AREA TWO TIMES A DAY NEEDED FOR ITCHING / RASH TO GROIN SOLD: 10/26/2019 [facility] montelukast 10 MG Oral Tablet MONTELUKAST SODIUM 09/23/2019 12:0 0:00 AM EDT tablet 90 TAKE ONE TABLET BY MOUTH EVERY D AY TAKE ONE TABLET BY MOUTH EVERY DAY SOLD: 12/22/2019 [facility] 40 mg 09/23/2019 12:00:00 AM EDT capsule,delayed release (DR/EC) 90 TAKE ONE CAPSULE BY MOUTH EVERY DAY TAKE ONE CAPSULE BY MOUTH EVERY DAY SOLD: 09/25/2019 [facility] montelukast 10 MG Oral Tablet MONTELUKAST SODIUM 09/23/2019 12:0 0:00 AM EDT tablet 90 TAKE ONE TABLET BY MOUTH EVERY D AY TAKE ONE TABLET BY MOUTH EVERY DAY SOLD: 09/25/2019 [facility] 80 mg 09/23/2019 12:00:00 AM EDT tablet 90 TAKE ONE TABLET BY MOUTH EVERY DAY TAKE ONE TABLET BY MOUTH EVERY DAY SOLD: 12/22/2019 [facility] 40 mg 09/23/2019 12:00:00 AM EDT capsule,delayed release (DR/EC) 90 TAKE ONE CAPSULE BY MOUTH EVERY DAY TAKE ONE CAPSULE BY MOUTH EVERY DAY SOLD: 12/22/2019 [facility] 80 mg 09/23/2019 12:00:00 AM EDT tablet 90 TAKE ONE TABLET BY MOUTH EVERY DAY TAKE ONE TABLET BY MOUTH EVERY DAY SOLD: 09/25/2019 [facility] 100 mg 08/31/2019 12:00:00 AM EST capsule 90 TAKE ONE CAPSULE BY MOUTH THREE TIMES A DAY TAKE ONE CAPSULE BY MOUTH THREE TIMES A DAY SOLD: 09/01/2019 [facility] 100 mg 08/31/2019 12:00:00 AM EST capsule 90 TAKE ONE CAPSULE BY MOUTH THREE TIMES A DAY TAKE ONE CAPSULE BY MOUTH THREE TIMES A DAY SOLD: 09/29/2019 [facility] 100 unit/mL (3 mL) 08/25/2019 12:00:00 AM EST insulin pen 42 INJECT 76 UNITS UNDER THE SKIN ONCE DAILY INJECT 76 UNITS UNDER THE SKIN ONCE DAILY SOLD: 08/25/2019 [facility] 100 unit/mL (3 mL) 08/25/2019 12:00:00 AM EST insulin pen 30 INJECT 76 UNITS UNDER THE SKIN ONCE DAILY INJECT 76 UNITS UNDER THE SKIN ONCE DAILY SOLD: 12/10/2019 [facility] 100 unit/mL (3 mL) 08/25/2019 12:00:00 AM EST insulin pen 42 INJECT 76 UNITS UNDER THE SKIN ONCE DAILY INJECT 76 UNITS UNDER THE SKIN ONCE DAILY SOLD: 10/18/2019 [facility] BLOOD SUGAR DIAGNOSTIC 08/04/2019 12:00:00 AM EST strip 100 TEST FOUR TIMES A DAY TEST FOUR TIMES A DAY SOLD: 05/04/2020 [facility] BLOOD SUGAR DIAGNOSTIC 08/04/2019 12:00:00 AM EST strip 100 TEST FOUR TIMES A DAY TEST FOUR TIMES A DAY SOLD: 03/18/2020 [facility] BLOOD SUGAR DIAGNOSTIC 08/04/2019 12:00:00 AM EST strip 100 TEST FOUR TIMES A DAY TEST FOUR TIMES A DAY SOLD: 08/04/2019 [facility] BLOOD SUGAR DIAGNOSTIC 08/04/2019 12:00:00 AM EST strip 100 TEST FOUR TIMES A DAY TEST FOUR TIMES A DAY SOLD: 05/29/2020 [facility] BLOOD SUGAR DIAGNOSTIC 08/04/2019 12:00:00 AM EST strip 100 TEST FOUR TIMES A DAY TEST FOUR TIMES A DAY SOLD: 04/10/2020 [facility] BLOOD SUGAR DIAGNOSTIC 08/04/2019 12:00:00 AM EST strip 100 TEST FOUR TIMES A DAY TEST FOUR TIMES A DAY SOLD: 06/21/2020 [facility] 100,000 unit/gram 08/02/2019 12:00:00 AM EST ointment 30 APPLY TO THE AFFECTED AREA OF GROIN TWO TIMES A DAY NEEDED FOR ITCHING/RASH APPLY TO THE AFFECTED AREA OF GROIN TWO TIMES A DAY NEEDED FOR ITCHING/RASH SOLD: 08/04/2019 [facility] 100,000 unit/gram 08/02/2019 12:00:00 AM EST ointment 30 APPLY TO THE AFFECTED AREA OF GROIN TWO TIMES A DAY NEEDED FOR ITCHING/RASH APPLY TO THE AFFECTED AREA OF GROIN TWO TIMES A DAY NEEDED FOR ITCHING/RASH SOLD: 08/31/2019 [facility] 40 mg 07/02/2019 12:00:00 AM EST tablet 90 TAKE ONE TABLET BY MOUTH EVERY DAY TAKE ONE TABLET BY MOUTH EVERY DAY SOLD: 09/25/2019 [facility] 100 mg 07/02/2019 12:00:00 AM EST capsule 90 TAKE ONE CAPSULE BY MOUTH THREE TIMES A DAY TAKE ONE CAPSULE BY MOUTH THREE TIMES A DAY SOLD: 08/02/2019 [facility] 40 mg 07/02/2019 12:00:00 AM EST tablet 90 TAKE ONE TABLET BY MOUTH EVERY DAY TAKE ONE TABLET BY MOUTH EVERY DAY SOLD: 12/22/2019 [facility] 40 mg 07/02/2019 12:00:00 AM EST tablet 90 TAKE ONE TABLET BY MOUTH EVERY DAY TAKE ONE TABLET BY MOUTH EVERY DAY SOLD: 07/02/2019 [facility] 100 mg 07/02/2019 12:00:00 AM EST capsule 90 TAKE ONE CAPSULE BY MOUTH THREE TIMES A DAY TAKE ONE CAPSULE BY MOUTH THREE TIMES A DAY SOLD: 07/02/2019 [facility] 100-25 mcg/dose 06/28/2019 12:00:00 AM EST blister with yessica ce 180 INHALE ONE PUFF BY MOUTH EVERY DAY INHALE ONE PUFF BY MOUTH EVERY DAY SOLD: 06/29/2019 [facility] 25 mg 06/28/2019 12:00:00 AM EST tablet 45 TAKE 1/2 TABLET BY MOUTH ONCE DAILY TAKE 1/2 TABLET BY MOUTH ONCE DAILY SOLD: 03/18/2020 [facility] 25 mg 06/28/2019 12:00:00 AM EST tablet 45 TAKE 1/2 TABLET BY MOUTH ONCE DAILY TAKE 1/2 TABLET BY MOUTH ONCE DAILY SOLD: 06/29/2019 [facility] 25 mg 06/28/2019 12:00:00 AM EST tablet 45 TAKE 1/2 TABLET BY MOUTH ONCE DAILY TAKE 1/2 TABLET BY MOUTH ONCE DAILY SOLD: 09/25/2019 [facility] 25 mg 06/28/2019 12:00:00 AM EST tablet 45 TAKE 1/2 TABLET BY MOUTH ONCE DAILY TAKE 1/2 TABLET BY MOUTH ONCE DAILY SOLD: 12/22/2019 [facility] 100-25 mcg/dose 06/28/2019 12:00:00 AM EST blister with yessica ce 180 INHALE ONE PUFF BY MOUTH EVERY DAY INHALE ONE PUFF BY MOUTH EVERY DAY SOLD: 09/25/2019 [facility] 100 unit/mL (3 mL) 06/14/2019 12:00:00 AM EST insulin pen 45 INJECT 42 UNITS UNDER THE SKIN THREE TIMES A DAY DIRECTED INJECT 42 UNITS UNDER THE SKIN THREE TIMES A DAY DIRECTED SOLD: 08/04/2019 [facility] 100 unit/mL (3 mL) 06/14/2019 12:00:00 AM EST insulin pen 45 INJECT 42 UNITS UNDER THE SKIN THREE TIMES A DAY DIRECTED INJECT 42 UNITS UNDER THE SKIN THREE TIMES A DAY DIRECTED SOLD: 10/26/2019 [facility] 100 unit/mL (3 mL) 06/14/2019 12:00:00 AM EST insulin pen 45 INJECT 42 UNITS UNDER THE SKIN THREE TIMES A DAY DIRECTED INJECT 42 UNITS UNDER THE SKIN THREE TIMES A DAY DIRECTED SOLD: 09/07/2019 [facility] 100 unit/mL (3 mL) 06/14/2019 12:00:00 AM EST insulin pen 45 INJECT 42 UNITS UNDER THE SKIN THREE TIMES A DAY DIRECTED INJECT 42 UNITS UNDER THE SKIN THREE TIMES A DAY DIRECTED SOLD: 06/15/2019 [facility] 100,000 unit/gram 06/07/2019 12:00:00 AM EST ointment 30 APPLY TOPICALLY TO GROIN AREA TWO TIMES A DAY NEEDED FOR ITCHING/RASH APPLY TOPICALLY TO GROIN AREA TWO TIMES A DAY NEEDED FOR ITCHING/RASH SOLD: 06/08/2019 [facility] 100,000 unit/gram 06/07/2019 12:00:00 AM EST ointment 30 APPLY TOPICALLY TO GROIN AREA TWO TIMES A DAY NEEDED FOR ITCHING/RASH APPLY TOPICALLY TO GROIN AREA TWO TIMES A DAY NEEDED FOR ITCHING/RASH SOLD: 07/06/2019 [facility] 25 mg 05/25/2019 12:00:00 AM EST tablet 120 TAKE ONE TABLET BY MOUTH EVERY 4 HOURS NEEDED TAKE ONE TABLET BY MOUTH EVERY 4 HOURS NEEDED SOLD: 05/27/2019 [facility] 550 mg 05/08/2019 12:00:00 AM EDT tablet 60 TAKE ONE TABLET BY MOUTH TWICE A DAY TAKE ONE TABLET BY MOUTH TWICE A DAY SOLD: 06/05/2019 [facility] 550 mg 05/08/2019 12:00:00 AM EDT tablet 60 TAKE ONE TABLET BY MOUTH TWICE A DAY TAKE ONE TABLET BY MOUTH TWICE A DAY SOLD: 08/25/2019 [facility] 550 mg 05/08/2019 12:00:00 AM EDT tablet 60 TAKE ONE TABLET BY MOUTH TWICE A DAY TAKE ONE TABLET BY MOUTH TWICE A DAY SOLD: 07/01/2019 [facility] 550 mg 05/08/2019 12:00:00 AM EDT tablet 60 TAKE ONE TABLET BY MOUTH TWICE A DAY TAKE ONE TABLET BY MOUTH TWICE A DAY SOLD: 07/29/2019 [facility] 550 mg 05/08/2019 12:00:00 AM EDT tablet 60 TAKE ONE TABLET BY MOUTH TWICE A DAY TAKE ONE TABLET BY MOUTH TWICE A DAY SOLD: 09/28/2019 [facility] 100 mg 05/05/2019 12:00:00 AM EDT capsule 90 TAKE ONE CAPSULE BY MOUTH THREE TIMES A DAY TAKE ONE CAPSULE BY MOUTH THREE TIMES A DAY SOLD: 06/05/2019 [facility] BLOOD SUGAR DIAGNOSTIC 05/04/2019 12:00:00 AM EDT strip 100 TEST FOUR TIMES A DAY TEST FOUR TIMES A DAY SOLD: 08/28/2019 [facility] BLOOD SUGAR DIAGNOSTIC 05/04/2019 12:00:00 AM EDT strip 100 TEST FOUR TIMES A DAY TEST FOUR TIMES A DAY SOLD: 06/21/2019 [facility] BLOOD SUGAR DIAGNOSTIC 05/04/2019 12:00:00 AM EDT strip 100 TEST FOUR TIMES A DAY TEST FOUR TIMES A DAY SOLD: 09/21/2019 [facility] BLOOD SUGAR DIAGNOSTIC 05/04/2019 12:00:00 AM EDT strip 100 TEST FOUR TIMES A DAY TEST FOUR TIMES A DAY SOLD: 07/13/2019 [facility] BLOOD SUGAR DIAGNOSTIC 05/04/2019 12:00:00 AM EDT strip 100 TEST FOUR TIMES A DAY TEST FOUR TIMES A DAY SOLD: 05/28/2019 [facility] 75 mcg 05/01/2019 12:00:00 AM EDT tablet 90 TAKE ONE TABLET BY MOUTH EVERY MORNING ON EMPTY STOMACH TAKE ONE TABLET BY MOUTH EVERY MORNING O N EMPTY STOMACH SOLD: 12/22/2019 [facility] 75 mcg 05/01/2019 12:00:00 AM EDT tablet 60 TAKE ONE TABLET BY MOUTH EVERY MORNING ON EMPTY STOMACH TAKE ONE TABLET BY MOUTH EVERY MORNING O N EMPTY STOMACH SOLD: 10/26/2019 [facility] 75 mcg 05/01/2019 12:00:00 AM EDT tablet 90 TAKE ONE TABLET BY MOUTH EVERY MORNING ON EMPTY STOMACH TAKE ONE TABLET BY MOUTH EVERY MORNING O N EMPTY STOMACH SOLD: 07/28/2019 [facility] 75 mcg 05/01/2019 12:00:00 AM EDT tablet 90 TAKE ONE TABLET BY MOUTH EVERY MORNING ON EMPTY STOMACH TAKE ONE TABLET BY MOUTH EVERY MORNING O N EMPTY STOMACH SOLD: 03/18/2020 [facility] montelukast 10 MG Oral Tablet MONTELUKAST SODIUM 04/01/2019 12:0 0:00 AM EDT tablet 90 TAKE ONE TABLET BY MOUTH EVERY D AY TAKE ONE TABLET BY MOUTH EVERY DAY SOLD: 06/29/2019 [facility] 80 mg 04/01/2019 12:00:00 AM EDT tablet 90 TAKE ONE TABLET BY MOUTH EVERY DAY TAKE ONE TABLET BY MOUTH EVERY DAY SOLD: 06/29/2019 [facility] 40 mg 04/01/2019 12:00:00 AM EDT capsule,delayed release (DR/EC) 90 TAKE ONE CAPSULE BY MOUTH EVERY DAY TAKE ONE CAPSULE BY MOUTH EVERY DAY SOLD: 06/29/2019 [facility] 31 gauge x 1/4" 02/18/2019 12:00:00 AM EDT needle 400 USE DIRECTED FOUR TIMES A DAY USE DIRECTED FOUR TIMES A DAY SOLD: 08/16/2019 [facility] 33 gauge 02/18/2019 12:00:00 AM EDT misc 400 USE DIRECTED FOUR TIMES A DAY USE DIRECTED FOUR TIMES A DAY SOLD: 02/10/2020 [facility] 33 gauge 02/18/2019 12:00:00 AM EDT misc 400 USE DIRECTED FOUR TIMES A DAY USE DIRECTED FOUR TIMES A DAY SOLD: 11/11/2019 [facility] 31 gauge x 1/4" 02/18/2019 12:00:00 AM EDT needle 400 USE DIRECTED FOUR TIMES A DAY USE DIRECTED FOUR TIMES A DAY SOLD: 02/10/2020 [facility] 33 gauge 02/18/2019 12:00:00 AM EDT misc 400 USE DIRECTED FOUR TIMES A DAY USE DIRECTED FOUR TIMES A DAY SOLD: 08/16/2019 [facility] 31 gauge x 1/4" 02/18/2019 12:00:00 AM EDT needle 400 USE DIRECTED FOUR TIMES A DAY USE DIRECTED FOUR TIMES A DAY SOLD: 11/11/2019 [facility] 100 unit/mL (3 mL) 01/29/2019 12:00:00 AM EDT insulin pen 36 INJECT UNDER THE SKIN THREE TIMES A DAY DIRECTED, MAXIMUM DAILY DOSE = 42 UNITS INJECT UNDER THE SKIN THREE TIMES A DAY DIRECTED, MAXIMUM DAILY DOSE = 42 UNITS SOLD: 10/06/2019 [facility] 100 unit/mL (3 mL) 01/29/2019 12:00:00 AM EDT insulin pen 36 INJECT UNDER THE SKIN THREE TIMES A DAY DIRECTED, MAXIMUM DAILY DOSE = 42 UNITS INJECT UNDER THE SKIN THREE TIMES A DAY DIRECTED, MAXIMUM DAILY DOSE = 42 UNITS SOLD: 07/14/2019 [facility] 100 unit/mL (3 mL) 01/21/2019 12:00:00 AM EDT insulin pen 42 USE 76 UNITS UNDER THE SKIN DAILY USE 76 UNITS UNDER THE SKIN DAILY SOLD: 07/05/2019 [facility] 0.4 mg 09/17/2018 12:00:00 AM EDT tablet, sublingual 25 PLACE ONE TABLET UNDER THE TONGUE EVERY 5 MINUTES FOR UP TO 3 DOSES NEEDED FOR CHEST PAIN. IF CHEST PAIN STILL PERSISTS CONTACT [address] ONE TABLET UNDER THE TONGUE EVERY 5 MINUTES FOR UP TO 3 DOSES NEEDED FOR CHEST PAIN. IF CHEST PAIN STILL PERSISTS CONTACT 911 SOLD: 09/01/2019 [facility] 0.4 mg 09/17/2018 12:00:00 AM EDT tablet, sublingual 25 PLACE ONE TABLET UNDER THE TONGUE EVERY 5 MINUTES FOR UP TO 3 DOSES NEEDED FOR CHEST PAIN. IF CHEST PAIN STILL PERSISTS CONTACT [address] ONE TABLET UNDER THE TONGUE EVERY 5 MINUTES FOR UP TO 3 DOSES NEEDED FOR CHEST PAIN. IF CHEST PAIN STILL PERSISTS CONTACT 911 SOLD: 08/28/2019 [facility] Insurance Providers Payer name Policy type / Coverage type Policy ID Covered alliance party ID Covered alliance party's relationship to mayo Policy [place] Plan Information WELLCARE [id number] SP [id number] WELLCARE O [id number] S [id number] WELLCARE [id number] SP [id number] [employer] [place] [id number] [place] [id number] [facility]-Health Maintenance Organization ( O) [id number] ANSI-Medicare Part B [id number] ANS-Health Maintenance Organization ( O) [id number] ANSI-Medicare Part B [id number] [facility]-Health Maintenance Organization ( O) [id number] ANSI-Medicare Part B [id number] ANSI-Health Maintenance Organization ( O) [id number] ANSI-Medicare Part B [id number] [facility]-Health Maintenance Organization ( O) [id number] ANSI-Medicare Part B [id number] ANSI-Medicare Part B [id number] [facility] ( O) [id number] ANSI-Medicare Part B [id number] [facility]-Health Maintenance Organization ( O) [id number] ANSI-Medicare Part B [id number] [facility]-Health Maintenance Organization ( O) [id number] [facility] Maintenance [facility] ( O) [id number] ANSI-Medicare Part B [id number] ANSI-Medicare Part B [id number] [facility] Maintenance [facility] ( O) [id number] [facility] Maintenance [facility] ( O) [id number] ANSI-Medicare Part B [id number] [facility] Maintenance [facility] ( O) [id number] ANSI-Medicare Part B [id number] ANSI-Medicare Part B [id number] [facility]-Health Maintenance Organization ( O) [id number] ANSI-Medicare Part B [id number] ANSI-Health Maintenance Organization ( O) [id number] [facility] Health Plans(To) Commercial [id number] Self [id number] [employer]SI-Health Maintenance Organization (HM O) [id number] ANSI-Medicare Part B [id number] ANSI-Medicare Part B [id number] [employer]SI-[employer] Maintenance Organization ( O) [id number] ANSI-Medicare Part B [id number] ANSI-Medicare Part B [id number] ANSI-Medicare Part B [id number] ANSI-Medicare Part B [id number] ANSI-Medicare Part B [id number] ANSI-Medicare Part B [id number] ANSI-Medicare Part B [id number] ANSI-Medicare Part B [id number] ANSI-Medicare Part B [id number] ANSI-Medicare Part B [id number] ANSI-Medicare Part B [id number] ANSI-Medicare Part B [id number] ANSI-Medicare Part B [id number] TODAYS OPTIONS [id number] ANSI-Medicare Part B [id number] Medicaid Medigap Part B [id number] Self [id number] 00H Blue Ppo Medigap Part B [id number] Self [id number] Today's Options PFFS Commercial [id number] Self [id number] Today's Options Ppo Commercial [id number] Self [id number] Ghi Medigap Part B [id number] Self [id number] Medicaid Medigap Part B [id number] Self [id number] 00H Blue Ppo Medigap Part B [id number] Self [id number] Today's Options PFFS Commercial [id number] Self [id number] Today's Options Ppo Commercial [id number] Self [id number] ANSI-Medicare Part B [id number] ANSI-Medicare Part B [id number] ANSI-Medicare Part B [id number] ANSI-Medicare Part B [id number] ANSI-Medicare Part B [id number] ANSI-Medicare Part B [id number] ANSI-Medicare Part B [id number] TODAYS OPTIONS/SYRIAN O [id number] S [id number] TODAYS OPTIONS/SYRIAN O [id number] S [id number] Medicaid Medigap Part B [id number] Self [id number] 00H Blue Ppo Medigap Part B [id number] Self [id number] Today's Options PFFS Commercial [id number] Self [id number] Today's Options Ppo Commercial [id number] Self [id number] Medicaid Medigap Part B [id number] Self [id number] 00H Blue Ppo Medigap Part B [id number] Self [id number] Today's Options PFFS Commercial [id number] Self [id number] Today's Options Ppo Commercial [id number] Self [id number] Medicaid Medigap Part B [id number] Self [id number] 00H Blue Ppo Medigap Part B [id number] Self [id number] Today's Options PFFS Commercial [id number] Self [id number] Today's Options Ppo Commercial [id number] Self [id number] Today's Option Medicare Commercial [id number] Self [id number] Today's Option Medicare Commercial [id number] Self [id number] Medicaid Medigap Part B Self Ghi Medigap Part B Self Blue Ppo Medigap Part B Self Today's Options PFFS Commercial Self Today's Options Ppo Commercial Self [id number] Problems, Conditions, and Diagnoses Code Display Name Description Problem Type Effective Dates Data Source(s) F41.9 [id number] Anxiety Problem 11/24/2019 12:00:00 AM ED T eCW1 ([facility]) F41.9 [id number] Anxiety Problem 11/24/2019 12:00:00 AM ED T eCW1 ([facility]) [id number] Dyspnea Dyspnea Problem 08/10/2019 12:00:00 AM ES T MEDENT ([facility]) K59.00 [id number] Constipation, unspecified constipation ty pe Problem 05/28/2019 12:00:00 AM EST eCW1 ([facility]) K59.00 [id number] Constipation, unspecified constipation ty pe Problem 05/28/2019 12:00:00 AM EST eCW1 ([facility]) Surgeries/Procedures Procedure Description Date Indications Data Source(s) Immunization: Flublok Quadrivalent (18 years & older) 0.5mL IM (Influenza) 05/22/2020 12:00:00 AM EST eCW1 ([facility]) Office Visit, Est Pt., Level 2 FC 09/17/2019 12:00:00 AM EDT eCW1 ([facility]) Office Visit, Est Pt., Level 3 PC 09/17/2019 12:00:00 AM EDT eCW1 ([facility]) Office Visit, Est Pt., Level 3 FC 05/28/2019 12:00:00 AM EST eCW1 ([facility]) Annual wellness visit, includes a person alized prevention plan of service (pps), subsequent visit 05/28/2019 12:00:00 AM EST eCW1 ([facility]) RIV4 VACC RECOMBINANT DNA IM 05/28/2019 12:00:00 AM ES T eCW1 ([facility]) Administration of influenza virus vaccine 05/28/2019 1 2:00:00 AM EST eCW1 ([facility]) Results ID Date Data Source [id number] 11/24/2019 11:05:00 AM EDT MEDENT ([facility]) Name Value Range Interpretation Code Description Data Rosibel rce(s) Supporting Document(s) Free T4 1.15 [facility] ([facility] Thyroid Stimulating Hormone 1.29 ME DENT ([facility]) Hemoglobin A1c/Hemoglobin.total in Blood 9.5 MEDENT ([facility]) ID Date Data Source [id number] 09/17/2019 10:17:00 AM EDT [facility]) Name Value Range Interpretation Code Description Data Rosibel rce(s) Supporting Document(s) Red Blood Count 4.27 4.00-5.40 MEDENT ([facility]) Platelets 140 150-450 MEDENT ([facility] White Blood Count 2.9 4.0-10.0 MEDENT ([facility]) Hematocrit 30.9 MEDENT ([facility]) Hemoglobin 8.7 MEDENT ([facility]) ID Date Data Source [id number] 09/17/2019 10:17:00 AM EDT [facility] Name Value Range Interpretation Code Description Data Rosibel rce(s) Supporting Document(s) Albumin [Mass/volume] in Serum or Plasma 3.8 MEDENT ([facility]) Calcium [Mass/volume] in Serum or Plasma 8.8 MEDENT ([facility]) Alanine aminotransferase [Enzymatic activity/volume] in Serum or Pl asma 42 MEDENT ([facility]) Potassium [Moles/volume] in Serum or Plasma 3.9 MEDENT ([facility]) Chloride [Moles/volume] in Serum or Plasma 110 MEDENT ([facility]) Carbon dioxide, total [Moles/volume] in Serum or Plasma 26 MEDENT ([facility]) Alkaline phosphatase [Enzymatic activity/volume] in Serum or Plasma 9 5 MEDENT ([facility]) Aspartate aminotransferase [Enzymatic activity/volume] in Serum or Plasma 23 MEDENT ([facility]) Protein [Mass/volume] in Serum or Plasma 7.2 MEDENT ([facility]) Urea nitrogen [Mass/volume] in Serum or Plasma 35 MEDENT ([facility]) Sodium 142 MEDENT ([facility]) Glucose 231 70-100 MED[facility] ([facility]) Creatinine For GFR 1.28 MEDENT ([facility]) ID Date Data Source [id number] 09/17/2019 12:00:00 AM EDT eCW1 ([facility] includes [facility]) Name Value Range Interpretation Code Description Data Rosibel rce(s) Supporting Document(s) Hemoglobin A1c/Hemoglobin.total in Blood 9.5 HEMOGLOBIN A1c eCW1 ([facility]) ID Date Data Source Comprehensive Metabolic Profile (CMP) 09/17/2019 12:00:00 AM EDT eCW1 ([facility]) Name Value Range Interpretation Code Description Data Rosibel rce(s) Supporting Document(s) 43.9 >39 GLOMERULAR FILTRATION RATE eCW 1 ([facility]) 35 7-18 BLOOD UREA NITROGEN eCW1 ([facility]) 142 136-145 SODIUM LEVEL eCW1 ([facility]) 1.28 0.55-1.30 CREATININE FOR GFR eCW1 ([facility]) 231 70-100 GLUCOSE, FASTING eCW1 (Count includes the [facility]) 8.8 8.8-10.2 CALCIUM LEVEL eCW1 ([facility]) 3.9 3.5-5.1 POTASSIUM SERUM eCW1 ([facility]) 26 21-32 CARBON DIOXIDE LEVEL eCW1 ([facility]) 110 98-107 CHLORIDE LEVEL eCW1 ([facility]) 95 45-117 ALKALINE PHOSPHATASE eCW1 ([facility]) 23 7-37 AST/SGOT eCW1 ([facility]) 0.3 0.2-1.0 BILIRUBIN,TOTAL eCW1 ([facility]) 42 12-78 ALT/SGPT eCW1 ([facility]) 7.2 6.4-8.2 TOTAL PROTEIN eCW1 ([facility]) 3.8 3.2-5.2 ALBUMIN eCW1 ([facility]) 1.12 1.00-1.93 ALBUMIN/GLOBULIN RATIO eCW1 ([facility]) ID Date Data Source CBC with Differential 09/17/2019 12:00:00 AM EDT eCW1 ([facility]) Name Value Range Interpretation Code Description Data Rosibel rce(s) Supporting Document(s) 2.9 4.0-10.0 WHITE BLOOD COUNT eCW1 ([facility]) 8.7 12.0-15.5 HEMOGLOBIN eCW1 ([facility]) 4.27 4.00-5.40 RED BLOOD COUNT eCW1 ([facility]) 30.9 36.0-47.0 HEMATOCRIT eCW1 ([facility]) 28.2 32.0-36.5 MEAN CORPUSCULAR HGB CONC eCW1 ([facility]) 72.4 80.0-96.0 MEAN CORPUSCULAR VOLUME e CW1 ([facility]) 20.4 27.0-33.0 MEAN CORPUSCULAR HEMOGLOB IN eCW1 ([facility]) 17.3 11.5-14.5 RED CELL DISTRIBUTION WID TH eCW1 ([facility]) 8.3 0.0-5.0 MONO % eCW1 ([facility]) 31.0 24.0-44.0 LYMPH % eCW1 ([facility]) 140 150-450 PLATELET COUNT, AUTOMATED eCW1 ([facility]) 59.1 36.0-66.0 NEUTROPHILS % eCW1 ([facility]) 0.9 1.5-5.0 LYMPH # eCW1 ([facility]) 0.3 0.0-1.0 BASO % eCW1 ([facility]) 1.7 1.5-8.5 NEUTROPHILS # eCW1 ([facility]) 1.0 0.0-3.0 EOS % eCW1 ([facility]) 0.2 0.0-0.8 MONO # eCW1 ([facility]) 0.0 0.0-0.2 BASO # eCW1 ([facility]) 0.0 0.0-0.5 EOS # eCW1 ([facility]) ID Date Data Source [id number] 08/11/2019 08:06:00 AM EST [facility] Name Value Range Interpretation Code Description Data Rosibel rce(s) Supporting Document(s) WBC 2.9 x10E3/uL 3.4-10.8 Below low normal [facility] RBC 4.33 x10E6/uL 3.77-5.28 [facility] Hemoglobin 9.1 g/dL 11.1-15.9 Below low normal [facility] Hematocrit 30.0 % 34.0-46.6 Below low normal [facility] MCV 69 fL 79-97 Below low normal [facility] MCH 21.0 pg 26.6-33.0 Below low normal [facility] MCHC 30.3 g/dL 31.5-35.7 Below low normal [facility] RDW 17.7 % 11.7-15.4 Above high normal [facility] Platelets 142 x10E3/uL 150-450 Below low normal [facility] ID Date Data Source [id number] 08/11/2019 10:05:00 AM EST [facility] Name Value Range Interpretation Code Description Data Rosibel rce(s) Supporting Document(s) Glucose 202 mg/dL 65-99 Above high normal [facility] BUN 37 mg/dL 8-27 Above high normal [facility] Creatinine 1.00 mg/dL 0.57-1.00 [facility] eGFR If NonAfricn Am 57 mL/min/1.73 >59 Below low normal [facility] eGFR If Africn Am 66 mL/min/1.73 >59 [facility] BUN/Creatinine Ratio 37 12-28 Above high normal [facility] Sodium 140 mmol/L 134-144 [facility] Potassium 4.5 mmol/L 3.5-5.2 [facility] Chloride 107 mmol/L 96-106 Above high normal [facility] Carbon Dioxide, Total 17 mmol/L 20-29 Below low normal [facility] Calcium 9.6 mg/dL 8.7-10.3 [facility] Procedure Social History Code Duration Value Status Description Data Source(s ) Smoking 02/21/2020 12:00:00 AM EDT Patient is a former smoker completed Patient is a former smoker MEDENT ([facility]) Vital Signs ID Date Data Source UNK Name Value Range Interpretation Code Description Data Source(s) Diastolic blood pressure 82 mm[Hg] 82 mm[Hg] eCW1 ([facility]) Systolic blood pressure 140 mm[Hg] 140 mm[Hg] e CW1 ([facility]) Body temperature 97.8 [degF] 97.8 [degF] eCW1 ( [facility]) Respiratory rate 19 /min 19 /min eCW1 ([facility]) Heart rate 96 /min 96 /min eCW1 ([facility]) Body mass index (BMI) [Ratio] 45.47 kg/m2 45.47 kg/m2 eCW1 ([facility]) Body height 60.25 [in_i] 60.25 [in_i] eCW1 ([facility]) Body weight 234.8 [lb_av] 234.8 [lb_av] eCW1 ([facility]) Diastolic blood pressure 72 mm[Hg] 72 mm[Hg] eCW1 ([facility]) Systolic blood pressure 120 mm[Hg] 120 mm[Hg] e CW1 ([facility]) Body temperature 98 [degF] 98 [degF] eCW1 ([facility]) Respiratory rate 20 /min 20 /min eCW1 ([facility]) Heart rate 102 /min 102 /min eCW1 ([facility]) Body mass index (BMI) [Ratio] 45.05 kg/m2 45.05 kg/m2 eCW1 ([facility]) Body height 60.25 [in_i] 60.25 [in_i] eCW1 ([facility]) Body weight 232.6 [lb_av] 232.6 [lb_av] eCW1 ([facility]) Diastolic blood pressure--sitting 80 mm[Hg] 80 mm[Hg] MEDSYD ([facility]) Systolic blood pressure--sitting 120 mm[Hg] 120 mm[Hg] MEDSYD ([facility]) Body mass index (BMI) [Ratio] 44.0 kg/m2 44.0 k g/m2 MEDENT ([facility]) Body height 61 [in_i] 61 [in_i] MEDENT ([facility]) 5'1" Body weight 233.00 [lb_av] 233.00 [lb_av] MEDEN T ([facility]) Diastolic blood pressure 74 mm[Hg] 74 mm[Hg] eCW1 ([facility]) Systolic blood pressure 120 mm[Hg] 120 mm[Hg] e CW1 ([facility]) Body temperature 97.1 [degF] 97.1 [degF] eCW1 ( [facility]) Respiratory rate 20 /min 20 /min eCW1 ([facility]) Heart rate 112 /min 112 /min eCW1 ([facility]) Body mass index (BMI) [Ratio] 45.47 kg/m2 45.47 kg/m2 eCW1 ([facility]) Body height 60.25 [in_i] 60.25 [in_i] eCW1 ([facility]) Body weight 234.8 [lb_av] 234.8 [lb_av] eCW1 ([facility]) Diastolic blood pressure 78 mm[Hg] 78 mm[Hg] eCW1 ([facility]) Systolic blood pressure 136 mm[Hg] 136 mm[Hg] e CW1 ([facility]) Body temperature 97.5 [degF] 97.5 [degF] eCW1 ( [facility]) Respiratory rate 20 /min 20 /min eCW1 ([facility]) Heart rate 110 /min 110 /min eCW1 ([facility]) Body mass index (BMI) [Ratio] 46.17 kg/m2 46.17 kg/m2 eCW1 ([facility]) Body height 60.25 [in_i] 60.25 [in_i] eCW1 ([facility]) Body weight 238.4 [lb_av] 238.4 [lb_av] eCW1 ([facility]) Diastolic blood pressure 78 mm[Hg] 78 mm[Hg] eCW1 ([facility]) Systolic blood pressure 124 mm[Hg] 124 mm[Hg] e CW1 ([facility]) Body temperature 98.2 [degF] 98.2 [degF] eCW1 ( [facility]) Respiratory rate 20 /min 20 /min eCW1 ([facility]) Heart rate 108 /min 108 /min eCW1 ([facility]) Body mass index (BMI) [Ratio] 46.09 kg/m2 46.09 kg/m2 eCW1 ([facility]) Body height 60.25 [in_us] 60.25 [in_us] eCW1 ([facility]) Body weight Measured 238 [lb_av] 238 [lb_av] eC W1 ([facility]) Oxygen saturation in Arterial blood by Pulse oximetry 98 % 98 % MEDENT ([facility]) Diastolic blood pressure--sitting 68 mm[Hg] 68 mm[Hg] MEDENT ([facility]) large cuff, Ra Systolic blood pressure--sitting 112 mm[Hg] 112 mm[Hg] MEDENT ([facility]) large cuff, Ra Heart rate 86 /min 86 /min MEDENT ([facility]) Body mass index (BMI) [Ratio] 43.5 kg/m2 43.5 k g/m2 MEDENT ([facility]) Body height 61 [in_i] 61 [in_i] MEDENT ([facility]) 5'1" Body weight 230.00 [lb_av] 230.00 [lb_av] MEDEN T ([facility]) Diastolic blood pressure 76 mm[Hg] 76 mm[Hg] eCW1 ([facility]) Systolic blood pressure 128 mm[Hg] 128 mm[Hg] e CW1 ([facility]) Body temperature 96.5 [degF] 96.5 [degF] eCW1 ( [facility]) Respiratory rate 20 /min 20 /min eCW1 ([facility]) Heart rate 111 /min 111 /min eCW1 ([facility]) Body mass index (BMI) [Ratio] 44.46 kg/m2 44.46 kg/m2 eCW1 ([facility]) Body height 60.25 [in_us] 60.25 [in_us] eCW1 ([facility]) Body weight Measured 229.6 [lb_av] 229.6 [lb_av ] eCW1 ([facility]) Patient Treatment Plan of Care Planned Activity Planned Date Details Description Data Source (s) Clotrimazole 10 MG/ML Topical Cream 05/22/2020 12:00:00 AM EST eCW1 ([facility]) Clotrimazole 10 MG/ML Topical Cream 05/22/2020 12:00:00 AM EST eCW1 ([facility]) Clotrimazole 10 MG/ML Topical Cream 05/22/2020 12:00:00 AM EST eCW1 ([facility]) Clotrimazole 10 MG/ML Topical Cream 05/22/2020 12:00:00 AM EST eCW1 ([facility]) Clotrimazole 10 MG/ML Topical Cream 05/22/2020 12:00:00 AM EST eCW1 ([facility]) Clotrimazole 10 MG/ML Topical Cream 05/22/2020 12:00:00 AM EST eCW1 ([facility]) Clotrimazole 10 MG/ML Topical Cream 05/22/2020 12:00:00 AM EST eCW1 ([facility]) Clotrimazole 10 MG/ML Topical Cream 05/22/2020 12:00:00 AM EST eCW1 ([facility]) Levothyroxine Sodium 0.05 MG Oral Tablet 01/12/2020 12:00:00 AM EDT eCW1 ([facility]) Levothyroxine Sodium 0.05 MG Oral Tablet 01/12/2020 12:00:00 AM EDT eCW1 ([facility]) Levothyroxine Sodium 0.05 MG Oral Tablet 01/12/2020 12:00:00 AM EDT eCW1 ([facility]) Benadryl Extra Strength 2-0.1 % 01/12/2020 12:00:00 AM EDT eCW1 ([facility]) Levothyroxine Sodium 0.05 MG Oral Tablet 01/12/2020 12:00:00 AM EDT eCW1 ([facility]) Benadryl Extra Strength 2-0.1 % 01/12/2020 12:00:00 AM EDT eCW1 ([facility]) Levothyroxine Sodium 0.05 MG Oral Tablet 01/12/2020 12:00:00 AM EDT eCW1 ([facility]) Benadryl Extra Strength 2-0.1 % 01/12/2020 12:00:00 AM EDT eCW1 ([facility]) Levothyroxine Sodium 0.05 MG Oral Tablet 01/12/2020 12:00:00 AM EDT eCW1 ([facility]) Levothyroxine Sodium 0.05 MG Oral Tablet 01/12/2020 12:00:00 AM EDT eCW1 ([facility]) Levothyroxine Sodium 0.05 MG Oral Tablet 01/12/2020 12:00:00 AM EDT eCW1 ([facility]) Hydroxyzine Hydrochloride 25 MG Oral Tablet 11/24/2019 12:00:00 AM EDT eCW1 ([facility]) Hydroxyzine Hydrochloride 25 MG Oral Tablet 11/24/2019 12:00:00 AM EDT eCW1 ([facility])
[2020-07-26] MEDS ORDERED: ACETAMINOPHEN TAB 650MG DOSE (2X325MG) PO ONE (10:15)
[2020-07-26] MEDS ORDERED: ALPRAZolam 0.25 MG TAB PO ONE (10:15)
[2020-07-26 12:11] LABS: CK-MB VALUE MASS 1.4 NG/ML (<3.6); CPK CREATINE PHOSPHOKINASE 59 U/L (26-192); MB/CK RELATIVE INDEX 2.37 (< OR =4); TROPONIN I < 0.02 NG/ML (< 0.10)
[2020-07-26 12:40] VITALS: BP 104/69
--- NOTE | 2020-07-26 20:43 | ECGEPIP ---
[facility] - ED Test Date: 2020-07-26 Pat Name: SHAY JACOME Department: Room: - Gender: Female [employer]: MACK : 1950 Requested By: Mayco Mcgee Order Number: [id number] Reading MD: Mayco Morrison Measurements Intervals [place] Rate: 70 P: 34 NV: 172 QRS: 2 QRSD: 131 T: 11 QT: 394 QTc: 427 Interpretive Statements SINUS RHYTHM RIGHT BUNDLE BRANCH BLOCK SIMILAR TO 01/24/19 Electronically Signed on 07-26-2020 20:43:29 EST by Mayco Morrison
--- NOTE | 2020-07-26 20:44 | ECGEPIP ---
[facility] - ED Test Date: 2020-07-26 Pat Name: SHAY JACOME Department: Room: - Gender: Female [employer]: munir : 1950 Requested By: Mayco Mcgee Order Number: [id number] Reading MD: Mayco Morrison Measurements Intervals [place] Rate: 79 P: 29 RI: 180 QRS: 0 QRSD: 134 T: -3 QT: 395 QTc: 455 Interpretive Statements SINUS RHYTHM RIGHT BUNDLE BRANCH BLOCK SIMILAR TO PRIOR ON SAME DATE Electronically Signed on 07-26-2020 20:44:43 EST by Mayco Morrison
== END 2020-07-26 12:50 | disposition home or self-care (01) ==
LOC: EDBD 08:21 → M ED 08:21
DX: M62.830 Muscle spasm of back (principal); I45.10 Unspecified right bundle-branch block; E11.9 Type 2 diabetes mellitus without complications; I10 Essential (primary) hypertension; E78.5 Hyperlipidemia, unspecified; F41.9 Anxiety disorder, unspecified; J45.909 Unspecified asthma, uncomplicated; J44.9 Chronic obstructive pulmonary disease, unspecified; G47.33 Obstructive sleep apnea (adult) (pediatric); Z87.442 Personal history of urinary calculi; Z79.4 Long term (current) use of insulin; Z79.899 Other long term (current) drug therapy; Z88.8 Allergy status to other drugs, medicaments and biological substances; Z91.018 Allergy to other foods

== ENCOUNTER → 2020-10-09 | Outpatient (REF) | payer MEDICARE ==
[2020-10-09 13:48] LABS: BASO % 0.7 % (0.0-1.0); EOS % 1.4 % (0.0-3.0); HEMATOCRIT 38.5 % (36.0-47.0); HEMOGLOBIN 11.7 g/dl (12.0-15.5); LYMPH # 0.8 10^3/uL (1.5-5.0); LYMPH % 27.9 % (24.0-44.0); MEAN CORPUSCULAR HEMOGLOBIN 25.8 pg (27.0-33.0); MEAN CORPUSCULAR HGB CONC 30.4 g/dl (32.0-36.5); MEAN CORPUSCULAR VOLUME 84.8 fl (80.0-96.0); MONO # 0.3 10^3/uL (0.0-0.8); MONO % 10.4 % (2.0-8.0); NEUTROPHILS # 1.7 10^3/uL (1.5-8.5); NEUTROPHILS % 59.2 % (36.0-66.0); PLATELET COUNT, AUTOMATED 127 10^3/uL (150-450); RED BLOOD COUNT 4.54 10^6/uL (4.00-5.40); WHITE BLOOD COUNT 2.8 10^3/uL (4.0-10.0)
[2020-10-09 14:06] LABS: HEMOGLOBIN A1c 7.7 %
[2020-10-09 14:23] LABS: BILIRUBIN,TOTAL 0.5 MG/DL (0.2-1.0); CALCIUM LEVEL 9.5 MG/DL (8.8-10.2); CHOLESTEROL RISK RATIO 2.882 (<5); CREATININE FOR GFR 1.07 MG/DL (0.55-1.30); GLOMERULAR FILTRATION RATE 53.8 (>39); POTASSIUM SERUM 4.4 MEQ/L (3.5-5.1); TOTAL PROTEIN 7.2 GM/DL (6.4-8.2)
== END ==
LOC: M SFHCADAM 07:57
PROVIDERS: ATTEND Family Medicine
DX: K74.60 Unspecified cirrhosis of liver (principal); E11.9 Type 2 diabetes mellitus without complications; I25.10 Atherosclerotic heart disease of native coronary artery without angina pectoris

== ENCOUNTER → 2021-04-12 | Outpatient (CLI) | payer MEDICARE ==
[~2021-04-12] MED LIST changes: -BREO1INH; +BREO1INH INH; -GABA-1171; +GABA-1171 PO; +TRUL0.5I SC
--- NOTE | 2021-04-12 14:23 | REP ---
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 FINDINGS: The mediastinum and cardiac silhouette are normal. The lung vivas are clear and without acute consolidation, effusion, or pneumothorax. The skeletal structures are intact and normal. IMPRESSION: No acute cardiopulmonary process. <Electronically signed by Thomas Montanez > 04/12/21 [id number]
== END ==
LOC: M ADAMS 13:55
PROVIDERS: ATTEND Family Medicine
DX: I25.10 Atherosclerotic heart disease of native coronary artery without angina pectoris (principal)
CPT/HCPCS: 71046; G0463

== ENCOUNTER 2021-08-11 00:34 | Emergency (ER) | payer MEDICARE ==
[~2021-08-11] VITALS: Ht 157.5 cm; Wt 81.1 kg
[~2021-08-11 00:34] MED LIST changes: -MONT10TA10 PO; +MONT10TA97 PO
[2021-08-11 01:58] LABS: BASO % 0.3 % (0.0-1.0); EOS % 0.5 % (0.0-3.0); HEMOGLOBIN 12.2 g/dl (12.0-15.5); LYMPH # 0.7 10^3/uL (1.5-5.0); LYMPH % 20.1 % (24.0-44.0); MEAN CORPUSCULAR HEMOGLOBIN 28.2 pg (27.0-33.0); MEAN CORPUSCULAR VOLUME 85.6 fl (80.0-96.0); MONO # 0.3 10^3/uL (0.0-0.8); MONO % 7.6 % (2.0-8.0); NEUTROPHILS # 2.6 10^3/uL (1.5-8.5); PLATELET COUNT, AUTOMATED 147 10^3/uL (150-450); RED BLOOD COUNT 4.32 10^6/uL (4.00-5.40); WHITE BLOOD COUNT 3.7 10^3/uL (4.0-10.0)
[2021-08-11] MEDS ORDERED: MECLIZINE 25 MG TABLET PO ONE (02:00)
[2021-08-11 02:16] LABS: CK-MB VALUE MASS < 1.0 NG/ML (<3.6); CPK CREATINE PHOSPHOKINASE 72 U/L (26-192); MB/CK RELATIVE INDEX 1.39 (< OR =4)
[2021-08-11 02:20] LABS: ALBUMIN 3.8 GM/DL (3.2-5.2); BILIRUBIN,TOTAL 0.4 MG/DL (0.2-1.0); CALCIUM LEVEL 9.6 MG/DL (8.8-10.2); CREATININE FOR GFR 1.31 MG/DL (0.55-1.30); GLOMERULAR FILTRATION RATE 42.5 (>39); TOTAL PROTEIN 7.1 GM/DL (6.4-8.2)
[2021-08-11 03:38] LABS: CK-MB VALUE MASS < 1.0 NG/ML (<3.6); CPK CREATINE PHOSPHOKINASE 58 U/L (26-192); MB/CK RELATIVE INDEX 1.72 (< OR =4)
[2021-08-11 04:30] VITALS: BP 142/72
[2021-08-11] MEDS ORDERED: MECL1TAB31 PO (05:02)
== END 2021-08-11 05:19 | disposition home or self-care (01) ==
LOC: EDBD 00:34 → M ED 00:34
DX: R42 Dizziness and giddiness (principal); I45.10 Unspecified right bundle-branch block; E11.9 Type 2 diabetes mellitus without complications; J45.909 Unspecified asthma, uncomplicated; E78.5 Hyperlipidemia, unspecified; M19.90 Unspecified osteoarthritis, unspecified site; K74.60 Unspecified cirrhosis of liver; D68.0 Von Willebrand disease; Z79.4 Long term (current) use of insulin; Z79.899 Other long term (current) drug therapy; Z88.8 Allergy status to other drugs, medicaments and biological substances; Z91.018 Allergy to other foods

== ENCOUNTER → 2021-10-11 | Outpatient (REF) | payer MEDICARE ==
[~2021-10-11] MED LIST changes: +MECL1TAB31 PO
== END ==
LOC: M SFHCADAM 11:55
PROVIDERS: ATTEND Family Medicine
DX: K74.60 Unspecified cirrhosis of liver (principal)

== ENCOUNTER → 2021-11-22 | Outpatient (CLI) | payer MEDICARE | LOC: M WHC 08:38 | PROVIDERS: ATTEND Family Medicine | DX: Z12.31 Encounter for screening mammogram for malignant neoplasm of breast (principal); K74.60 Unspecified cirrhosis of liver; Z13.820 Encounter for screening for osteoporosis; M85.89 Other specified disorders of bone density and structure, multiple sites ==

== ENCOUNTER → 2022-02-13 | Outpatient (CLI) | payer MEDICARE ==
[2022-02-13 10:14] LABS: ABG BASE EXCESS 0.4 (-2.0-2.0); ABG HCO3 24.9 MEQ/L (22.0-26.0); ABG O2 SATURATION 97.6 % (95.0-99.0); ABG PARTIAL PRESSURE CO2 39.8 mmHg (35.0-45.0); ABG PARTIAL PRESSURE O2 103.3 mmHg (75.0-100.0); ABG SITE ART LINE; ABG STANDARD HCO3 24.9 MEQ/L (22.0-26.0); ABG TOTAL CO2 26.2 MEQ/L (23.0-31.0); ABG pH (ARTERIAL) 7.415 UNITS (7.350-7.450)
== END ==
LOC: M LAB 09:25
PROVIDERS: ATTEND Student in an Organized Health Care Education/Training Program
DX: I28.8 Other diseases of pulmonary vessels (principal)

== ENCOUNTER → 2022-04-15 | Outpatient (CLI) | payer MEDICARE | LOC: M RAD 09:29 | PROVIDERS: ATTEND Family Medicine | DX: K74.60 Unspecified cirrhosis of liver (principal); K76.89 Other specified diseases of liver ==